=== PATIENT | female | born 1965 | race Caucasian/White ===

== ENCOUNTER 2016-10-10 22:12 | Emergency (ER) | payer MEDICAID ==
[2016-10-10] MEDS ORDERED: Albuterol-Ipratrop 3 mg / 0.5 (3 ml) UD ONE (22:42)
[2016-10-10] MEDS ORDERED: Albuterol-Ipratrop 3 mg / 0.5 (3 ml) UD IH SCH (22:45)
[2016-10-10] MEDS: Albuterol-Ipratrop 3 mg / 0.5 (3 ml) UD IH SCH (22:58)
[2016-10-10 23:32] VITALS: BP 150/93; PULSE 93; RESP 18; TEMP 98; O2SAT 95
--- NOTE | 2016-10-10 23:35 | C.PDOC ---
History Of Present Illness 51 year old female with a history of asthma, presents to the ED with complaints of cough, wheezing, and chest congestion for the past 4 days. Patient states she was using Albuterol at home with mild relief and denies fever, chills, vomiting, diarrhea, chest pain, or any other complaints at this time. Time Seen by Provider: 10/10/16 22:25 Chief Complaint (Nursing): Shortness Of Breath History Per: Patient History/Exam Limitations: no limitations Onset/Duration Of Symptoms: Days Current Symptoms Are (Timing): Still Present Severity: Mild Associated Symptoms: denies: Fever, Chills, Chest Pain, Productive Cough Past Medical History Reviewed: Historical Data, Nursing Documentation, Vital Signs Vital Signs: Last Vital Signs Temp 98 F 10/10/16 23:32 Pulse 93 H 10/10/16 23:32 Resp 18 10/10/16 23:32 BP 150/93 H 10/10/16 23:32 Pulse Ox 95 10/10/16 23:50 - Medical History PMH: Asthma, HTN, Kidney Stones ('92) Surgical History: Cholecystectomy Family History: States: Unknown Family Hx - Social History Hx Alcohol Use: No Hx Substance Use: No - Immunization History Hx Tetanus Toxoid Vaccination: Yes Hx Influenza Vaccination: Yes Hx Pneumococcal Vaccination: Yes Review Of Systems Except As Marked, All Systems Reviewed And Found Negative. Constitutional: Negative for: Fever, Chills Cardiovascular: Negative for: Chest Pain, Palpitations Respiratory: Positive for: Cough, Wheezing, Other (+Chest congestion) Gastrointestinal: Negative for: Nausea, Vomiting, Diarrhea Physical Exam - Physical Exam Appears: Non-toxic, No Acute Distress Skin: Normal Color, Warm, Dry Head: Atraumatic, Normacephalic Eye(s): bilateral: Normal Inspection Oral Mucosa: Moist Chest: Symmetrical, No Deformity Cardiovascular: Rhythm Regular Respiratory: No Accessory Muscle Use, No Rales, No Rhonchi, Wheezing (+Moderate bilateral expiratory wheezing) Gastrointestinal/Abdominal: Soft, No Tenderness, No Distention Extremity: Normal ROM, No Deformity Neurological/Psych: Oriented x3, Normal Speech, Normal Cognition ED Course And Treatment O2 Sat by Pulse Oximetry: 95 (Room air) Pulse Ox Interpretation: Normal - Radiology CXR: Interpreted by Me, Viewed By Me CXR Interpretation: Yes: No Acute Disease Medical Decision Making Medical Decision Making: Plan: -CXR -Ap Mauricio-Medrol -Zithromax -Reassess Progress: On reassessment, patient is resting comfortably with no wheezing, chest pain, or retractions. Oxygen saturation and breath sounds have improved. Rx given and patient was advised to follow up with physician/clinic in 1-2 days and return to ED if symptoms worsen or persist. Disposition - Disposition Referrals: Sukh Chairez [Staff Provider] - Disposition: HOME/ ROUTINE Disposition Time: 23:35 Condition: STABLE Additional Instructions: Follow up with the medical doctor within 1-2 days without fail. Return if worsened. Prescriptions: Nebulizer Accessories [Reusable Nebulizer Kit] 1 each MC Q4 #1 kit Benzonatate [Tessalon Perles] 200 mg PO TID PRN #21 sgl PRN Reason: Cough Albuterol HFA [Ventolin HFA 90 mcg/actuation (8 g)] 1 puff IH Q4 PRN #100 puff PRN Reason: Wheezing Azithromycin [Zithromax] 250 mg PO DAILY #4 tab predniSONE [Prednisone] 20 mg PO BID #10 tab Instructions: Asthma (DC) - Clinical Impression Clinical Impression: Asthmatic bronchitis - PA / PROJECT MANAGEMENT ENGINEER / Resident Statement MD/DO has reviewed & agrees with the documentation as recorded. - Scribe Statement The provider has reviewed the documentation as recorded by the Scribe Alexandr Clay. All medical record entries made by the Scribe were at my direction and personally dictated by me. I have reviewed the chart and agree that the record accurately reflects my personal performance of the history, physical exam, medical decision making, and the department course for this patient. I have also personally directed, reviewed, and agree with the discharge instructions and disposition.
--- NOTE | 2016-10-11 10:27 | RAD ---
HISTORY: SOB, cough, wheezing COMPARISON: Comparison chest dated 09/29/2016. TECHNIQUE: Chest PA and lateral FINDINGS: LUNGS: Suspect minor bibasilar atelectasis. PLEURA: No significant pleural effusion identified. No pneumothorax apparent. CARDIOVASCULAR: Mild cardiomegaly. OSSEOUS STRUCTURES: Mild multilevel degenerative spondylosis of the thoracic spine. Chronic anterior wedge deformities of a few mid thoracic segments. VISUALIZED UPPER ABDOMEN: Normal. OTHER FINDINGS: None. IMPRESSION: Minor bibasilar atelectasis. Mild cardiomegaly.
== END 2016-10-10 23:43 | disposition home or self-care (01) ==
LOC: C.ER 22:12
DX: J45.909 Unspecified asthma, uncomplicated (principal)

== ENCOUNTER 2017-01-27 11:06 | Emergency (ER) | payer MEDICAID ==
[2017-01-27 11:17] VITALS: BP 159/82; PULSE 76; RESP 20; TEMP 98; O2SAT 98
--- NOTE | 2017-01-27 13:21 | RAD ---
PROCEDURE: Right middle finger radiographs. HISTORY: injury COMPARISON: None. TECHNIQUE: AP radiograph of the right hand, as well as spot oblique and lateral images of right middle finger were obtained. FINDINGS: RIGHT MIDDLE FINGER: Right middle finger normal, without fracture of focal lesion. Remainder of the right hand (as seen on the AP view) grossly unremarkable. JOINTS: Normal. SOFT TISSUES: Normal. OTHER FINDINGS: None. IMPRESSION: Normal right middle finger radiographs.
--- NOTE | 2017-01-27 13:30 | CT ---
PROCEDURE: CT HEAD WITHOUT CONTRAST. HISTORY: dizzy, right scalp lump COMPARISON: None available. TECHNIQUE: Axial computed tomography images were obtained through the head/brain without intravenous contrast. Radiation dose: Total exam DLP = 908.69 mGy-cm. This CT exam was performed using one or more of the following dose reduction techniques: Automated exposure control, adjustment of the mA and/or kV according to patient size, and/or use of iterative reconstruction technique. FINDINGS: HEMORRHAGE: No intracranial hemorrhage. BRAIN: No mass effect or edema. The warner-white matter differentiation appears intact. Please note that MRI with diffusion imaging is more sensitive in the detection of acute ischemic event. VENTRICLES: No hydrocephalus. CALVARIUM: Unremarkable. PARANASAL SINUSES: Unremarkable as visualized. No significant inflammatory changes. MASTOID AIR CELLS: Unremarkable as visualized. No inflammatory changes. OTHER FINDINGS: Focal prominence involving the right scalp ; question presence of 2.0 x 0.4 cm lipoma. IMPRESSION: No acute intracranial pathology identified. Focal prominence involving the right scalp ; question presence of 2.0 x 0.4 cm lipoma.
--- NOTE | 2017-01-27 14:09 | C.PDOC ---
History Of Present Illness Patient is a 51 y/o female that is sent to the ED by Dr. Kay for evaluation of intermittent headache, and dizziness for the last 2 months. Patient states that her symptoms have been more frequent for the last few days. Patient states that she fell, and hit the right side of her head, and noticed some swelling to the area. Pt reports being seen by her PMD at that time who suggested to aspirate with needle, but pt had declined. Pt states that she felt dizzy again this morning, and fell, hitting the right 3rd digit. Otherwise, denies any fever, chills, extremity weakness, numbness, nausea, vomiting, visual changes, or any other associated symptoms at this time. Pt reports seeing PMD today for routine appointment, who suggested to report to hospital. Time Seen by Provider: 01/27/17 11:32 Chief Complaint (Nursing): Dizziness/Lightheaded History Per: Patient History/Exam Limitations: no limitations Onset/Duration Of Symptoms: Days Current Symptoms Are (Timing): Still Present Recent travel outside of the [place]: No Additional History Per: Patient Past Medical History Reviewed: Historical Data, Nursing Documentation, Vital Signs Vital Signs: Last Vital Signs Temp 98 F 01/27/17 11:14 Pulse 76 01/27/17 11:14 Resp 20 01/27/17 11:14 BP 159/82 H 01/27/17 11:14 Pulse Ox 98 01/27/17 14:56 - Medical History PMH: Asthma, HTN, Kidney Stones ('92) Surgical History: Cholecystectomy Family History: States: Unknown Family Hx - Social History Hx Alcohol Use: No Hx Substance Use: No - Immunization History Hx Tetanus Toxoid Vaccination: Yes Hx Influenza Vaccination: Yes Hx Pneumococcal Vaccination: Yes Review Of Systems Except As Marked, All Systems Reviewed And Found Negative. Constitutional: Negative for: Fever, Chills Cardiovascular: Negative for: Chest Pain, Palpitations Respiratory: Negative for: Shortness of Breath Gastrointestinal: Negative for: Nausea, Vomiting Musculoskeletal: Positive for: Hand Pain (right 3rd digit) Neurological: Positive for: Headache, Dizziness. Negative for: Weakness, Numbness Physical Exam - Physical Exam Appears: Non-toxic, No Acute Distress Skin: Warm, Dry, Other (erythema to right 3rd digit) Head: Atraumatic, Normacephalic, Swelling (right parietal scalp soft tissue mass 2 x 0.5 cm, soft, movable, probably lipoma. no erythema, no fluctuance, no drainage, no open wound) Eye(s): bilateral: Normal Inspection, EOMI Neck: Normal ROM, Supple Chest: Symmetrical, No Tenderness Cardiovascular: Rhythm Regular, No Murmur Respiratory: Normal Breath Sounds, No Rales, No Rhonchi, No Wheezing Gastrointestinal/Abdominal: Soft, No Tenderness Extremity: Normal ROM, Tenderness (mild right 3rd digit), Capillary Refill (< 2 sec.), No Deformity, No Swelling Pulses: Left Radial: Normal, Right Radial: Normal Neurological/Psych: Oriented x3, Normal Speech, Normal Cognition, Normal Motor, Normal Sensation ED Course And Treatment ECG: Interpreted By Me, Viewed By Me ECG Rhythm: Sinus Rhythm ECG Interpretation: Normal Interpretation Of ECG: sinus rhythm with sinus arrhythmia with occasional PVC. Rate From EC (bpm) O2 Sat by Pulse Oximetry: 98 (on RA) Pulse Ox Interpretation: Normal - Other Rad Right 3rd digit x-ray X-Ray: Viewed By Me, Read By Radiologist Interpretation: FINDINGS: RIGHT MIDDLE FINGER: Right middle finger normal, without fracture of focal lesion. Remainder of the right hand (as seen on the AP view) grossly unremarkable. JOINTS: Normal. SOFT TISSUES: Normal. OTHER FINDINGS: None. IMPRESSION: Normal right middle finger radiographs. - CT Scan/US Head CT Other Rad Studies (CT/US): Read By Radiologist, Radiology Report Reviewed CT/US Interpretation: FINDINGS: HEMORRHAGE: No intracranial hemorrhage. BRAIN : No mass effect or edema. The warner-white matter differentiation appears intact. Please note that MRI with diffusion imaging is more sensitive in the detection of acute ischemic event. VENTRICLES: No hydrocephalus. CALVARIUM: Unremarkable. PARANASAL SINUSES: Unremarkable as visualized. No significant inflammatory changes. MASTOID AIR CELLS: Unremarkable as visualized. No inflammatory changes. OTHER FINDINGS: Focal prominence involving the right scalp ; question presence of 2.0 x 0.4 cm lipoma. IMPRESSION: No acute intracranial pathology identified. Focal prominence involving the right scalp ; question presence of 2.0 x 0.4 cm lipoma. Progress Note: On arrival to ED, pt refuses any type of blood work, and requests only to have CT, and finger x-ray done. Head CT, and right 3rd digit x- ray ordered and reviewed. Spoke with Dr. Voudouris on phone who agrees with plan , and discharge. Disposition - Disposition Disposition: HOME/ ROUTINE Disposition Time: 14:08 Condition: STABLE Additional Instructions: Follow up with your PMD and pest control worker within 1-2 days. Return to Ed if feel worse. Instructions: Dizziness (ED) - Clinical Impression Clinical Impression: Dizziness, Finger contusion, Lipoma of scalp - PA / SELF PAY SPECIALIST / Resident Statement MD/DO has reviewed & agrees with the documentation as recorded. - Scribe Statement The provider has reviewed the documentation as recorded by the Scribfifi Cooper All medical record entries made by the Shayna were at my direction and personally dictated by me. I have reviewed the chart and agree that the record accurately reflects my personal performance of the history, physical exam, medical decision making, and the department course for this patient. I have also personally directed, reviewed, and agree with the discharge instructions and disposition.
--- NOTE | 2017-01-28 17:14 | CARD ---
APPROVED REPORT EKG Measurement Heart [id number] [id number] <Conclusion> Sinus rhythm with sinus arrhythmia with occasional premature ventricular complexes Otherwise normal ECG
== END 2017-01-27 14:30 | disposition home or self-care (01) ==
LOC: C.ER 11:06
DX: R42 Dizziness and giddiness (principal); D17.0 Benign lipomatous neoplasm of skin and subcutaneous tissue of head, face and neck; S60.031A Contusion of right middle finger without damage to nail, initial encounter; W18.30XA Fall on same level, unspecified, initial encounter

== ENCOUNTER 2017-03-12 10:52 | Emergency (ER) | payer MEDICAID ==
[2017-03-12 11:08] VITALS: BP 134/87; PULSE 87; TEMP 97.6
--- NOTE | 2017-03-12 12:00 | C.PDOC ---
History Of Present Illness 51 year old female with a history of arthritis presents to the ED with complaints of right knee pain for four days. Patient was evaluated by her PMD, had XR, was diagnosed with arthritis. PMD instructed her follow up with orthopedist but has not been able to. 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 Has been taking Motrin with no relief. Patient denies trauma, calf tenderness, SOB, fever, or change in sensation. Time Seen by Provider: 03/12/17 11:55 Chief Complaint (Nursing): Lower Extremity Problem/Injury History Per: Patient History/Exam Limitations: no limitations Onset/Duration Of Symptoms: Days (4 days) Current Symptoms Are (Timing): Still Present Recent travel outside of the [place]: No Additional History Per: Prior Records Past Medical History Reviewed: Historical Data, Nursing Documentation, Vital Signs Vital Signs: Last Vital Signs Temp 97.6 F 03/12/17 12:07 Pulse 87 03/12/17 12:07 Resp 18 03/12/17 12:07 BP 134/87 03/12/17 12:07 Pulse Ox 97 03/12/17 12:23 - Medical History PMH: Asthma, HTN, Kidney Stones ('92) Surgical History: Cholecystectomy Family History: States: Unknown Family Hx - Social History Hx Alcohol Use: No Hx Substance Use: No - Immunization History Hx Tetanus Toxoid Vaccination: Yes Hx Influenza Vaccination: Yes Hx Pneumococcal Vaccination: Yes Review Of Systems Constitutional: Negative for: Fever Cardiovascular: Negative for: Chest Pain Respiratory: Negative for: Shortness of Breath Gastrointestinal: Negative for: Nausea, Vomiting Musculoskeletal: Positive for: Leg Pain (right knee pain ). Negative for: Back Pain, Foot Pain Neurological: Negative for: Weakness, Numbness Physical Exam - Physical Exam Appears: Non-toxic, No Acute Distress Skin: Warm, Dry Head: Atraumatic, Normacephalic Eye(s): bilateral: Normal Inspection, EOMI Nose: Normal Oral Mucosa: Moist Neck: Supple Chest: Symmetrical Cardiovascular: Rhythm Regular Respiratory: Normal Breath Sounds, No Rhonchi, No Wheezing Extremity: Normal ROM (Full ROM of right knee), No Tenderness, No Pedal Edema, No Calf Tenderness, Capillary Refill, No Deformity, Swelling (diffuse mild swelling of the right knee ) Extremity: Bilateral: Atraumatic Pulses: Left Dorsalis Pedis: Normal, Right Dorsalis Pedis: Normal Neurological/Psych: Oriented x3, Normal Speech, Normal Cognition, Normal Motor, Normal Sensation ED Course And Treatment O2 Sat by Pulse Oximetry: 97 (room air ) Progress Note: Patient was given ultram. Knee brace was applied by phlebotomy technologist and patient given crutches. Instructed to follow up with orthopedist in 1-2 days. Disposition - Disposition Referrals: Heather Rider MD [Staff Provider] - Disposition: HOME/ ROUTINE Disposition Time: 11:58 Condition: STABLE Additional Instructions: Rest, ice and elevated. Follow up with bone doctor in 1-2 days. Prescriptions: traMADol [Ultram] 50 mg PO Q8 #20 tab Instructions: Knee Pain (ED) Forms: [employer] ([place]) - Clinical Impression Clinical Impression: Knee pain - Scribe Statement The provider has reviewed the documentation as recorded by the Scribe Belkys Ingram All medical record entries made by the Scribe were at my direction and personally dictated by me. I have reviewed the chart and agree that the record accurately reflects my personal performance of the history, physical exam, medical decision making, and the department course for this patient. I have also personally directed, reviewed, and agree with the discharge instructions and disposition.
[2017-03-12 12:08] VITALS: RESP 18
[2017-03-12 12:20] VITALS: O2SAT 97
== END 2017-03-12 12:06 | disposition home or self-care (01) ==
LOC: C.ER 10:52
DX: M25.561 Pain in right knee (principal)

== ENCOUNTER 2017-05-03 10:11 | Inpatient (IN) | payer MEDICAID ==
--- NOTE | 2017-05-03 11:36 | C.PDOC ---
History Of Present Illness 51 year old female, with past medical history of asthma, HTN, presents to Emergency Department for evaluation of shortness of breath associated with cough , wheezing, and chest tightness for the last 2 days. Patient states that pain is worse with deep breathing. Patient reports using inhaler at home without improvement. Denies sputum, fever, chills, n/v/d, abdominal pain, or lower extremity pain/swelling. Pt reports being admitted for asthma exacerbation in the past. Denies being placed on ventilator in the past. Chief Complaint (Nursing): Shortness Of Breath History Per: Patient History/Exam Limitations: no limitations Onset/Duration Of Symptoms: Days (2) Current Symptoms Are (Timing): Still Present Current Respiratory Medications: See Home Med List Associated Symptoms: denies: Fever, Chills, Sweating, Bloody Cough, Heart Racing , Leg/Calf Pain, Ankle/Leg Swelling, Dizziness, Light-headedness, Anxiety, Tingling In Hands Or Face, Musle Spasms In Hands Or Feet Recent travel outside of the [place]: No Additional History Per: Patient Past Medical History Reviewed: Historical Data, Nursing Documentation, Vital Signs Vital Signs: Last Vital Signs Temp 97.3 F L 05/03/17 10:27 Pulse 125 H 05/03/17 15:04 Resp 18 05/03/17 15:04 BP 108/61 05/03/17 15:04 Pulse Ox 98 05/03/17 15:05 - Medical History PMH: Asthma, HTN, Kidney Stones ('92) Surgical History: Cholecystectomy Family History: States: Unknown Family Hx - Social History Hx Alcohol Use: No Hx Substance Use: No - Immunization History Hx Tetanus Toxoid Vaccination: Yes Hx Influenza Vaccination: Yes Hx Pneumococcal Vaccination: Yes Review Of Systems Except As Marked, All Systems Reviewed And Found Negative. Constitutional: Negative for: Fever, Chills Cardiovascular: Positive for: Chest Pain (tightness). Negative for: Palpitations, Edema, Light Headedness Respiratory: Positive for: Cough, Shortness of Breath, Pleuritic Pain, Wheezing. Negative for: Hemoptysis, Sputum Gastrointestinal: Negative for: Nausea, Vomiting, Abdominal Pain, Diarrhea Neurological: Negative for: Headache, Dizziness Physical Exam - Physical Exam Appears: Non-toxic, No Acute Distress Skin: Normal Color, Warm, Dry Head: Atraumatic, Normacephalic Eye(s): bilateral: Normal Inspection, PERRL, EOMI Ear(s): Bilateral: Normal Nose: Normal Oral Mucosa: Moist Throat: Normal Neck: Normal ROM, Supple Chest: Symmetrical, No Tenderness Cardiovascular: No Murmur, Other (tachycardic) Respiratory: No Accessory Muscle Use, No Rales, No Rhonchi, No Wheezing, Other ( diminished breath sounds in b/l bases, tachypneic) Gastrointestinal/Abdominal: Soft, No Tenderness Back: Normal Inspection, No CVA Tenderness Extremity: Normal ROM, No Pedal Edema, No Calf Tenderness, Capillary Refill (<2 sec.), No Deformity, No Swelling Extremity: Bilateral: Atraumatic, Normal Color And Temperature Pulses: Left Radial: Normal, Right Radial: Normal Neurological/Psych: Oriented x3, Normal Speech, Normal Cognition ED Course And Treatment - Laboratory Results Result Diagrams: 05/03/17 11:49 05/03/17 11:49 Lab Interpretation: Abnormal Interpretation Of Abnormal: C/w CHF ECG: Interpreted By Me ECG Rhythm: Atrial Fibrillation ECG Interpretation: Abnormal Interpretation Of ECG: new onset atrial fib with RVR to 166 Rate From EC O2 Sat by Pulse Oximetry: 98 (on RA) Pulse Ox Interpretation: Normal - Radiology CXR: Interpreted by Co CXR Interpretation: Yes: No Acute Disease Progress Note: Pt given cardizem bolus and drip.Vent response now at mid 90's - Physician Consult Information Time Consulting Physician Contacted: 12:30 (no initial respone,spoke with resident who says Dr Fernández will call back) Physician Contacted: Denny Fernández Medical Decision Making Medical Decision Making: Blood work, UA, CXR, EKG ordered and reviewed. Patient was given Cardizem, Lasix, and Solu-Medrol. Pts SOB would appear to be due to acute onset atrial fib with mild CHF Disposition - Disposition Disposition: HOSPITALIZED Disposition Time: 12:33 Condition: GUARDED Forms: [facility] (Wolof) - Clinical Impression Clinical Impression: Atrial fibrillation with RVR, Congestive heart failure - Scribe Statement The provider has reviewed the documentation as recorded by the Scribe Omar Cooper All medical record entries made by the Scribe were at my direction and personally dictated by me. I have reviewed the chart and agree that the record accurately reflects my personal performance of the history, physical exam, medical decision making, and the department course for this patient. I have also personally directed, reviewed, and agree with the discharge instructions and disposition. Decision To Admit - Pt Status Changed To: Hospital Disposition Of: Inpatient - Admit Certification Admit to Inpatient:: After my assessment, the patient will require hospitalization for at least two midnights. This is because of the severity of symptoms shown, intensity of services needed, and/or the medical risk in this patient being treated as an outpatient. - InPatient: Physician Admission Certification: I certify that this patient requires 2 or more midnights of care for the following reason:: new onset atrial fib with CHF - . Bed Request Type: Telemetry Admitting Physician: Randi Arriaza Patient Diagnosis: Atrial fibrillation with RVR, Congestive heart failure
[2017-05-03 11:58] LABS: BASO # 0.1 K/uL (0.0-0.2); BASO % 0.4 % (0.0-2.0); EOS % 0.1 % (0.0-4.0); HEMATOCRIT 46.3 % (34.0-47.0); LYMPH # 1.9 K/uL (1.0-4.3); LYMPH % 14.4 % (20.0-40.0); MEAN CORPUSCULAR HEMOGLOBIN 28.8 pg (27.0-31.0); MEAN CORPUSCULAR HGB CONC 33.9 g/dL (33.0-37.0); MONO # 0.8 K/uL (0.0-0.8); RED CELL DISTRIBUTION WIDTH 13.8 % (11.5-14.5); WHITE BLOOD COUNT 13.1 K/uL (4.8-10.8)
[2017-05-03 12:10] LABS: CHLORIDE 100 mmol/L (98-107); SODIUM 136 mmol/L (132-148)
[2017-05-03 12:11] LABS: POTASSIUM 4.2 mmol/L (3.6-5.2)
[2017-05-03 12:12] LABS: GFR AFRICAN-AMERICAN > 60
[2017-05-03 12:13] LABS: ALB/GLOB RATIO 1.3 (1.0-2.1); ALKALINE PHOSPHATASE 70 U/L (38-126); ALT/SGPT 30 U/L (9-52); AST/SGOT 24 U/L (14-36); BILIRUBIN,TOTAL 0.8 mg/dL (0.2-1.3); BLOOD UREA NITROGEN 20 mg/dL (7-17); CARBON DIOXIDE 23 mmol/L (22-30); GLUCOSE,RANDOM 125 mg/dL (65-105); TOTAL PROTEIN 7.9 g/dL (6.3-8.3)
[2017-05-03 12:14] LABS: CALCIUM 9.6 mg/dl (8.6-10.4)
--- NOTE | 2017-05-03 12:45 | RAD ---
PROCEDURE: CHEST RADIOGRAPH, 1 VIEW HISTORY: SOB COMPARISON: Chest radiographs 10/10/2016. FINDINGS: LUNGS: No acute infiltrate bilaterally, however, history volume appears somewhat diminished in the interval. PLEURA: No pneumothorax or pleural fluid seen. CARDIOVASCULAR: Stable cardiomegaly. No pulmonary vascular derangement identified. OSSEOUS STRUCTURES: No significant abnormalities. VISUALIZED UPPER ABDOMEN: Normal. OTHER FINDINGS: None. IMPRESSION: Stable cardiomegaly. No acute infiltrate or pleural effusion. No pulmonary vascular derangement. Diminished inspiratory volume noted in the interval.
[2017-05-03] MEDS ORDERED: Iodixanol 320 MG/ML 100 ML BOTTLE IV ONE (13:59)
--- NOTE | 2017-05-03 15:28 | CT ---
PROCEDURE: CT Chest with contrast (Pulmonary Angiogram) HISTORY: new onset atrial fib COMPARISON: None available. TECHNIQUE: Axial computed tomography images were obtained of the chest in the pulmonary arterial phase of enhancement. Coronal and sagittal reformatted images were created and reviewed. Intravenous contrast dose: Visipaque 320, 100 cc Radiation dose: Total exam DLP = 532.48 mGy-cm. This CT exam was performed using one or more of the following dose reduction techniques: Automated exposure control, adjustment of the mA and/or kV according to patient size, and/or use of iterative reconstruction technique. FINDINGS: PULMONARY ARTERIES: The main pulmonary artery as well as the primary right and left pulmonary arteries are widely patent without filling defect to suggest a central pulmonary embolus. There is a small area of diminished density add a tertiary branch (image 105 series 2) of the right upper lobe of pulmonary artery which on correlation with coronal reformatted imaging may represent streak artifact rather than intrinsic pulmonary embolus. Evaluation of smaller branches of the pulmonary arteries is somewhat limited in this case with adequate but the somewhat limited pulmonary artery opacification. No additional findings to suggest additional potential pulmonary emboli bilaterally. AORTA: No acute findings. No thoracic aortic aneurysm. LUNGS: Limited bilateral dependent atelectasis is appreciated with no definitive alveolitis. Thickening of the inferior left major fissure is questioned versus local atelectasis adjacent to it. Central airways are clear. PLEURAL SPACES: Unremarkable. No effusion or pneuomothorax. HEART: Cardiomegaly. Trace inferior pericardial effusion or pericardial thickening. LYMPH NODES: No lymphadenopathy. BONES, CHEST WALL: Unremarkable. No fracture or destructive lesion OTHER FINDINGS: Prior cholecystectomy suggested in the upper abdomen with central splenic vascular or parenchymal calcifications noted minimally. IMPRESSION: 1. A solitary tertiary branch of the right upper lobe is felt to be affected by streak artifact, favored over intrinsic small pulmonary embolus. Further clinical correlation is advised the remaining pulmonary arteries system appears patent and unremarkable. 2. Trace bilateral basilar dependent atelectasis. No alveolitis or discrete pulmonary mass. No significant lymphadenopathy. 3. Cardiomegaly. 4. Incidental prior cholecystectomy identified. Clinically correlate. Findings discussed with Dr. Raya 05/03/2017, 3:15 p.m. with written down and read back verification.
[2017-05-03] MEDS ORDERED: Albuterol 0.083% Inhal Sol (2.5 mg/3 mL) UD IH PRN (15:42)
[2017-05-03] MEDS ORDERED: Enoxaparin 80 mg Syringe ONE (15:50)
[2017-05-03] MEDS: Enoxaparin 80 mg Syringe SC SCH (16:01)
[2017-05-03] MEDS ORDERED: Digoxin 500 mcg/2ml (0.5 mg/2ml) Inj IVP ONE (18:33)
--- NOTE | 2017-05-03 19:16 | CP.PCM.HP ---
Addendum entered and electronically signed by Carlie House DO 05/03/17 20:46: minimal leg edema noted bilaterally. patient does not have pitting edema Original Note: <Carlie House - Last Filed: 05/03/17 19:44> History of Present Illness - History of Present Illness History of Present Illness: History and Physical for Dr. Arriaza 51F with PMH of asthma and HTN, presents to the ED with SOB that started yesterday that became worse today. Patient went to see PMD yesterday and was told it was an asthma exacerbation, medications were changed and was sent for CXR today. CXR was done and Patient called PMD and stated that SOB was worse today and was told by PMD to come to the ED. Patient admits to midsternal chest pain that comes and goes for the past two days. Patient states this is the first time. Pt states that she has been having trouble walking a short distance for over a year and sleeps with four pillows and "three mini pillows" at night. Patient also complains of headache, nausea, cough, vomiting, and subjective fever. Patient admits to leg swelling that has been getting worse over the past week. Patient denies palpitations, diaphoresis, headache, dysuria , hematuria, abdominal pain, diarrhea, weight changes, or changes in vision. 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 [employer], patient has pets at home, no alcohol, smoking, or drugs Allergies: latex, natural rubber, morphine Present on Admission - Present on Admission Any Indicators Present on Admission: No History of DVT/PE: No History of Uncontrolled Diabetes: No Urinary Catheter: No Decubitus Ulcer Present: No Past Patient History - Past Medical History & Family History Past Medical History?: Yes - Past Social History Smoking Status: Never Smoked - CARDIAC Hx Hypertension: Yes - PULMONARY Hx Asthma: Yes - NEUROLOGICAL Hx Neurological Disorder: No - HEENT Hx HEENT Problems: No - RENAL Hx Kidney Stones: Yes () - ENDOCRINE/METABOLIC Hx Endocrine Disorders: No - HEMATOLOGICAL/ONCOLOGICAL Hx Blood Disorders: No - INTEGUMENTARY Hx Dermatological Problems: No - MUSCULOSKELETAL/RHEUMATOLOGICAL Hx Musculoskeletal Disorders: No Hx Falls: No - GASTROINTESTINAL Hx Gastrointestinal Disorders: No - GENITOURINARY/GYNECOLOGICAL Hx Genitourinary Disorders: No - PSYCHIATRIC Hx Substance Use: No - SURGICAL HISTORY Hx Cholecystectomy: Yes - ANESTHESIA Hx Anesthesia: Yes Hx Anesthesia Reactions: No Hx Malignant Hyperthermia: No Meds Allergies/Adverse Reactions: Allergies Allergy/AdvReac Type Severity Reaction Status Date / Time Latex, Natural Rubber Allergy Intermediate RASH Verified 05/03/17 10:30 morphine Allergy Intermediate VOMITING Verified 05/03/17 10:30 Physical Exam - Constitutional Appears: Non-toxic - Head Exam Head Exam: NORMAL INSPECTION - Eye Exam Eye Exam: EOMI, Normal appearance - ENT Exam ENT Exam: Mucous Membranes Moist - Neck Exam Neck exam: Positive for: Full Rom - Respiratory Exam Respiratory Exam: NORMAL BREATHING PATTERN. absent: Accessory Muscle Use, Respiratory Distress - Cardiovascular Exam Cardiovascular Exam: Tachycardia, Irregular Rhythm, +S1, +S2. absent: Bradycardia - GI/Abdominal Exam GI & Abdominal Exam: Soft. absent: Tenderness Additional comments: rash (red raised papules) on right upper quadrant and right lower breast tissue patient states it's due to her underwire bra irritation per PMD Results - Vital Signs Recent Vital Signs: Last Vital Signs Temp 98.3 F 05/03/17 18:38 Pulse 82 05/03/17 18:38 Resp 20 05/03/17 18:38 BP 131/77 05/03/17 18:38 Pulse Ox 95 05/03/17 18:38 - Labs Result Diagrams: 05/03/17 11:49 05/03/17 11:49 Labs: Laboratory Results - last 24 hr 05/03/17 05/03/17 05/03/17 11:49 11:49 12:18 WBC 13.1 H D RBC 5.45 H Hgb 15.7 Hct 46.3 MCV 85.0 D MCH 28.8 MCHC 33.9 RDW 13.8 Plt Count 296 MPV 9.0 Neut % (Auto) 79.1 H Lymph % (Auto) 14.4 L [place] % (Auto) 6.0 Eos % (Auto) 0.1 Baso % (Auto) 0.4 Neut # 10.4 H Lymph # 1.9 [place] # 0.8 Eos # 0.0 Baso # 0.1 D-Dimer, Quantitative 286 H Sodium 136 Potassium 4.2 Chloride 100 Carbon Dioxide 23 Anion Gap 16 BUN 20 H Creatinine 0.5 L Est GFR ( Amer) > 60 Est GFR (Non-Af Amer) > 60 Random Glucose 125 H Calcium 9.6 Total Bilirubin 0.8 AST 24 ALT 30 Alkaline Phosphatase 70 Troponin I < 0.0120 NT-Pro-B Natriuret Pep 2160 H Total Protein 7.9 Albumin 4.5 Globulin 3.4 Albumin/Globulin Ratio 1.3 Urine HCG, Qual Urine Opiates Screen Urine Methadone Screen Ur Barbiturates Screen Ur Phencyclidine Scrn Ur Amphetamines Screen U Benzodiazepines Scrn U Oth Cocaine Metabols U Cannabinoids Screen 05/03/17 05/03/17 13:33 13:44 WBC RBC Hgb Hct MCV MCH MCHC RDW Plt Count MPV Neut % (Auto) Lymph % (Auto) [place] % (Auto) Eos % (Auto) Baso % (Auto) Neut # Lymph # [place] # Eos # Baso # D-Dimer, Quantitative Sodium Potassium Chloride Carbon Dioxide Anion Gap BUN Creatinine Est GFR ( Amer) Est GFR (Non-Af Amer) Random Glucose Calcium Total Bilirubin AST ALT Alkaline Phosphatase Troponin I NT-Pro-B Natriuret Pep Total Protein Albumin Globulin Albumin/Globulin Ratio Urine HCG, Qual Negative Urine Opiates Screen Negative Urine Methadone Screen Negative Ur Barbiturates Screen Negative Ur Phencyclidine Scrn Negative Ur Amphetamines Screen Negative U Benzodiazepines Scrn Negative U Oth Cocaine Metabols Negative U Cannabinoids Screen Negative Assessment & Plan - Assessment and Plan (Free Text) Assessment: Dr. Marcelino PMD [facility] Launch Leader: Dr. Berumen Atrial Fibrillation RVR Cardiology Consult: Dr. Sheldon LAURENT neg x 1 follow up 17:50 MEHRAN and 23:50 MEHRAN f/u TSH CHADSVasc: 1, pending final read of echo and hemoglobin a1c HAS-BLED score: 0 points, low risk for major bleeding Cardizem 60mg POQID Cozaar 100mg POQD Hx Asthma, SOB r/o Pneumonia Pulmonology Consult: Dr. Sosa M. pneumoniae ab IgG S. pneumoniae ag Albuterol 2.5mg IH RQ6H PRN SOB Fluticasone/Salmeterol 50 Montelukast 10mg POQD Hx HTN Hydrochlorothiazide 25mg POQD ?Hx Pre-Diabetes f/u Hgb A1c Prophylaxis Pepcid 20mg POBID Lovenox 80mg SCQ12H Carlie Eng, DO PGY1 - Date & Time Date: 05/03/17 Time: 19:45 <Randi Arriaza V - Last Filed: 05/03/17 21:51> Results - Vital Signs Recent Vital Signs: Last Vital Signs Temp 98.3 F 05/03/17 18:38 Pulse 82 05/03/17 18:38 Resp 20 05/03/17 18:38 BP 131/77 05/03/17 18:38 Pulse Ox 95 05/03/17 18:38 - Labs Result Diagrams: 05/03/17 11:49 05/03/17 11:49 Labs: Laboratory Results - last 24 hr 05/03/17 05/03/17 05/03/17 11:49 11:49 12:18 WBC 13.1 H D RBC 5.45 H Hgb 15.7 Hct 46.3 MCV 85.0 D MCH 28.8 MCHC 33.9 RDW 13.8 Plt Count 296 MPV 9.0 Neut % (Auto) 79.1 H Lymph % (Auto) 14.4 L [place] % (Auto) 6.0 Eos % (Auto) 0.1 Baso % (Auto) 0.4 Neut # 10.4 H Lymph # 1.9 [place] # 0.8 Eos # 0.0 Baso # 0.1 D-Dimer, Quantitative 286 H Sodium 136 Potassium 4.2 Chloride 100 Carbon Dioxide 23 Anion Gap 16 BUN 20 H Creatinine 0.5 L Est GFR ( Amer) > 60 Est GFR (Non-Af Amer) > 60 Random Glucose 125 H Calcium 9.6 Total Bilirubin 0.8 AST 24 ALT 30 Alkaline Phosphatase 70 Total Creatine Kinase CK-MB (Mass) Troponin I < 0.0120 Troponin I, Quant NT-Pro-B Natriuret Pep 2160 H Total Protein 7.9 Albumin 4.5 Globulin 3.4 Albumin/Globulin Ratio 1.3 TSH 3rd Generation Urine HCG, Qual Urine Opiates Screen Urine Methadone Screen Ur Barbiturates Screen Ur Phencyclidine Scrn Ur Amphetamines Screen U Benzodiazepines Scrn U Oth Cocaine Metabols U Cannabinoids Screen 05/03/17 05/03/17 05/03/17 13:33 13:44 19:31 WBC RBC Hgb Hct MCV MCH MCHC RDW Plt Count MPV Neut % (Auto) Lymph % (Auto) [place] % (Auto) Eos % (Auto) Baso % (Auto) Neut # Lymph # [place] # Eos # Baso # D-Dimer, Quantitative Sodium Potassium Chloride Carbon Dioxide Anion Gap BUN Creatinine Est GFR ( Amer) Est GFR (Non-Af Amer) Random Glucose Calcium Total Bilirubin AST ALT Alkaline Phosphatase Total Creatine Kinase CK-MB (Mass) Troponin I Troponin I, Quant NT-Pro-B Natriuret Pep Total Protein Albumin Globulin Albumin/Globulin Ratio TSH 3rd Generation 0.57 Urine HCG, Qual Negative Urine Opiates Screen Negative Urine Methadone Screen Negative Ur Barbiturates Screen Negative Ur Phencyclidine Scrn Negative Ur Amphetamines Screen Negative U Benzodiazepines Scrn Negative U Oth Cocaine Metabols Negative U Cannabinoids Screen Negative 05/03/17 19:31 WBC RBC Hgb Hct MCV MCH MCHC RDW Plt Count MPV Neut % (Auto) Lymph % (Auto) [place] % (Auto) Eos % (Auto) Baso % (Auto) Neut # Lymph # [place] # Eos # Baso # D-Dimer, Quantitative Sodium Potassium Chloride Carbon Dioxide Anion Gap BUN Creatinine Est GFR ( Amer) Est GFR (Non-Af Amer) Random Glucose Calcium Total Bilirubin AST ALT Alkaline Phosphatase Total Creatine Kinase 40 CK-MB (Mass) 1.29 Troponin I Troponin I, Quant < 0.0120 NT-Pro-B Natriuret Pep Total Protein Albumin Globulin Albumin/Globulin Ratio TSH 3rd Generation Urine HCG, Qual Urine Opiates Screen Urine Methadone Screen Ur Barbiturates Screen Ur Phencyclidine Scrn Ur Amphetamines Screen U Benzodiazepines Scrn U Oth Cocaine Metabols U Cannabinoids Screen Attending/Attestation - Attestation I have personally seen and examined this patient.: Yes I have fully participated in the care of the patient.: Yes I have reviewed all pertinent clinical information: Yes Notes (Text): Patient seen, examined, and case discussed with day-time resident. Patient seen in [facility] [place] Bed 13 in Emergency Room on 05/03/17 at approximately 1PM today. Case discussed with ICU, Dr Fernández, patient weaned off Cardizem drip, and started on PO Cardizem. Patient's Heart Rate in 120s. Patient determined to be stable for telemetry once weaned off Cardizem drip. Patient comes in following chest pain and associated shortness of breathe and in acute distress while trying to attempt chest xray recommended by her PMD: Dr. Chairez. Patient advised by her PMD to go directly to the ED for evaluation today. Patient found to be in new onset, atrial fibrillation. Patient denies history thyroid disease, denies alcohol history (has family hx: mother), and has low risk for PE. Patient ordered and completed for echocardiogram. Patient is not . Patient had elevated d-dimer. Patient ordered for CT Chest PE protocol-->patient does not appear to have PE, per report patient has artifact. Patient given in the ED: Cardizem 20mg IV X1 at 12:48PM, and on low Cardizem drip at rate of 5 and weaned off drip. Patient given first dose of Cardizem 60mg PO this afternoon around 1PM and second dose Cardizem 60mg PO X1 at 16;48 and dose of Cardizem 10mg IVP X1 prior to transfer to the 6th floor. Patient's heart rate in 120s on 6th floor, and given one dose of Digoxin 0.25mg IVX1. Per request of the patient, spoke with patient's son Jose to update regarding details of the day in relation to his mother's workup for new onset atrial fibrillation. Assessment/Plan 1) New Diagnosed Atrial Fibrillation Atrial Fibrillation RVR * Cardiology Consult: Dr. 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 Discussed with cardiology, possible switch to Eliquis to cover. * Cardizem 60mg PO QID * UDS: negative * CT Chest r/o PE: PE ruled out 2) Possible Congestive Heart Failure * Pending echocardiogram * Heart appears enlarged on chest xray * elevated probnp * hold beta-dayana secondary to se: bronchospasm; patient takes aspirin outpatient, on Arb, on calcium channel dayana, and not currently on statin until lipid panel result 3) Hx of Asthma, Uncontrolled * Pulmonology Consult: Dr. Sosa; patient does not have a private veterinary surgeon * Ordered for M. pneumoniae ab IgG, S. pneumoniae ag Home medications: * Albuterol 2.5mg IH RQ6H PRN SOB * Advair 250/50 1 puff inhaled Q 12h * Montelukast 10mg POQDaily 4) Hx of HTN * Hydrochlorothiazide 25mg POQDaily and Valsartan-->switched to Cozaar 100mg PO daily during hospitalization 5) Hx of Impaired glucose tolerance * f/u Hgb A1c * Accuchecks QAC and HS 6) Elevated d-dimer * Ct Chest PE protocol-->negative for PE * Will order venous doppler low suspicion for DVT. * Well's Criteria: 1.5 (heart rate >100)-->low risk * PERC: 2 (age and hr >100) 7) Prophylaxis * Pepcid 20mg POBID * Lovenox 80mg SCQ12H * PMD: Contreras * Cardiology: oNy
[2017-05-03] MEDS ORDERED: Fluticasone-Salmeterol 500-50mcg Diskus IH SCH (22:00)
--- NOTE | 2017-05-03 23:10 | CARD ---
APPROVED REPORT EKG Measurement Heart [id number] <Conclusion> Atrial fibrillation with rapid ventricular response with premature ventricular or aberrantly conducted complexes Nonspecific T wave abnormality Abnormal ECG
--- NOTE | 2017-05-03 23:35 | CARD ---
APPROVED REPORT EXAM: Two-dimensional and M-mode echocardiogram with Doppler and color Doppler. Other Information Quality : GoodRhythm : NSR INDICATION Dyspnea Chest Pain Congestive Heart Failure M-Mode DIMENSIONS RVDd2.11 (2.1-3.2cm)Left Atrium (MM)4.02 (2.5-4.0cm) IVSd1.68 (0.7-1.1cm)Aortic Root3.59 (2.2-3.7cm) LVDd3.87 (4.0-5.6cm)Aortic Cusp Exc.2.23 (1.5-2.0cm) PWd1.64 (0.7-1.1cm)FS (%) 23 % LVDs2.97 (2.0-3.8cm)LVEF (%)47 (>50%) Aortic Valve AoV Peak Twhtharg672.7cm/Charline Peak GR.16mmHg Mitral Valve MV E Yesdmxug245.3cm/sMV A Wnkgxhkk34.2cm/sE/A ratio1.6 TDI E/Lateral E'0.0E/Medial E'0.0 Tricuspid Valve TR Peak [id number]/sTR Peak Gr.[id number] LEFT VENTRICLE The left ventricle is normal size. There is moderate concentric left ventricular hypertrophy. Left ventricle systolic function is borderline impaired. The Ejection Fraction is 45-50%. There is borderline global hypokinesis of the left ventricle. The left ventricular diastolic function is normal. RIGHT VENTRICLE The right ventricle is normal size. There is normal right ventricular wall thickness. The right ventricular systolic function is normal. ATRIA The left atrium is borderline dilated. The right atrium size is normal. The interatrial septum is intact with no evidence for an atrial septal defect. AORTIC VALVE The aortic valve is normal in structure. No aortic regurgitation is present. There is no aortic valvular stenosis. There is no aortic valvular vegetation. MITRAL VALVE The mitral valve is normal in structure. There is no evidence of mitral valve prolapse. There is no mitral valve stenosis. Mitral regurgitation is mild. TRICUSPID VALVE The tricuspid valve is normal in structure. There is trace to mild tricuspid regurgitation. Right ventricular systolic pressure is estimated at 30-40 mmHg. There is mild pulmonary hypertension. PULMONIC VALVE The pulmonic valve is not well visualized. There is no pulmonic valvular regurgitation. GREAT VESSELS The aortic root is normal in size. PERICARDIAL EFFUSION There is no significant pericardial effusion. <Conclusion> Left ventricle systolic function is mildly impaired. The Ejection Fraction is 45-50%. Hypertensive heart disease. No aortic regurgitation is present. Mitral regurgitation is mild. There is trace to mild tricuspid regurgitation. There is mild pulmonary hypertension. There is no pulmonic valvular regurgitation.
[2017-05-04] MEDS: Enoxaparin 80 mg Syringe SC SCH (04:32)
[2017-05-04 08:40] LABS: BASO % 0.2 % (0.0-2.0); LYMPH # 1.3 K/uL (1.0-4.3); LYMPH % 8.6 % (20.0-40.0); MEAN CELL VOLUME 86.3 fL (81.0-99.0); MEAN CORPUSCULAR HEMOGLOBIN 28.9 pg (27.0-31.0); MEAN CORPUSCULAR HGB CONC 33.4 g/dL (33.0-37.0); MEAN PLATELET VOLUME 9.2 fL (7.2-11.7); NRBC % 0.1 % (0.0-2.0); PLATELET COUNT 297 K/uL (130-400); RED CELL DISTRIBUTION WIDTH 13.9 % (11.5-14.5); WHITE BLOOD COUNT 14.8 K/uL (4.8-10.8)
[2017-05-04 08:52] LABS: CHLORIDE 100 mmol/L (98-107)
[2017-05-04 08:53] LABS: SODIUM 134 mmol/L (132-148)
[2017-05-04 08:55] LABS: CHOLESTEROL 255 mg/dL (0-199); GFR AFRICAN-AMERICAN > 60
[2017-05-04 08:56] LABS: ALB/GLOB RATIO 1.2 (1.0-2.1); ALKALINE PHOSPHATASE 75 U/L (38-126); ALT/SGPT 32 U/L (9-52); AST/SGOT 28 U/L (14-36); BILIRUBIN,TOTAL 0.7 mg/dL (0.2-1.3); BLOOD UREA NITROGEN 27 mg/dL (7-17); CALCIUM 9.8 mg/dl (8.6-10.4); CARBON DIOXIDE 20 mmol/L (22-30); GLUCOSE,RANDOM 175 mg/dL (65-105); TOTAL PROTEIN 7.7 g/dL (6.3-8.3)
[2017-05-04 10:19] LABS: NEUTROPHIL 76 % (50-75); REACTIVE LYMPHOCYTES 1 % (0-0); TOTAL CELLS COUNTED 100
--- NOTE | 2017-05-04 11:12 | CP.PCM.CON ---
<Abdi Heredia - Last Filed: 05/04/17 17:21> History of Present Illness - History of Present Illness History of Present Illness: Cardiology Consult Note- Dr. Chung's service CC: shortness of breath and chest pain HPI: 51 year old female with past medical history significant for Asthma, HTN, questionable mild stroke at the age of 22 and cardiac murmur presents after experiencing shortness of breath with sharp mid-sternal chest pain one day prior. Patient states that she had been experiencing these symptoms over the weekend without relief and thus went to her primary medical doctor for further assessment. While there, her doctor gave her steroids and a treatment which provided minimal improvement. Patient states that she was then sent for further imaging workup however her symptoms still did not appear to improve. She states that she began experiencing increased shortness of breath and pain and was told by her PMD to then go straight to the emergency room to be evaluated. Patient described the pain as sharp and rated a 9/10 without relieving factors. It appears that taking deep breaths worsened her symptoms. Patient admits to shortness of breath after walking the distance of a few feet which is not her norm. Currently, she denies subjective fevers or chills, chest pain, palpitations, nausea, vomiting, headaches, paresthesias, radiation of pain at this time. PMHx- as stated above PSHx- C/S in 1984 and 1991, Total Hysterectomy in 2007, Cholecystectomy in 1995 Fam Hx- Mother had liver cancer which was diagnosed at 61 years of age; Father had lung cancer diagnosed at 78 years of age Social Hx- denies tobacco, alcohol or illicit drug use Meds- ASA 81 mg, BP medications, Asthma medications, Cough suppressant (Unsure of some of the names) Allergies- Morphine causes anaphylaxis, Latex causes hives, PMD- Dr. Chairez Review of Systems - Constitutional Constitutional: absent: Excessive Sweating, Fever, Headache - EENT Eyes: absent: Blurred Vision, Change in Vision Nose/Mouth/Throat: absent: Nasal Congestion, Nasal Discharge - Cardiovascular Cardiovascular: Chest Pain, Chest Pain at Rest, Dyspnea. absent: Pedal Edema - Respiratory Respiratory: Dyspnea, Dyspnea on Exertion - Gastrointestinal Gastrointestinal: absent: Nausea, Vomiting - Musculoskeletal Musculoskeletal: absent: Back Pain, Neck Pain - Integumentary Integumentary: absent: Dry Skin, Wounds - Neurological Neurological: absent: Tingling, Weakness - Hematologic/Lymphatic Hematologic: absent: Easy Bleeding, Easy Bruising Past Patient History - Past Medical History & Family History Past Medical History?: Yes - Past Social History Smoking Status: Never Smoked - CARDIAC Hx Hypertension: Yes - PULMONARY Hx Asthma: Yes - NEUROLOGICAL Hx Neurological Disorder: No - HEENT Hx HEENT Problems: No - RENAL Hx Kidney Stones: Yes () - ENDOCRINE/METABOLIC Hx Endocrine Disorders: No - HEMATOLOGICAL/ONCOLOGICAL Hx Blood Disorders: No - INTEGUMENTARY Hx Dermatological Problems: No - MUSCULOSKELETAL/RHEUMATOLOGICAL Hx Musculoskeletal Disorders: No Hx Falls: No - GASTROINTESTINAL Hx Gastrointestinal Disorders: No - GENITOURINARY/GYNECOLOGICAL Hx Genitourinary Disorders: No - PSYCHIATRIC Hx Substance Use: No - SURGICAL HISTORY Hx Cholecystectomy: Yes - ANESTHESIA Hx Anesthesia: Yes Hx Anesthesia Reactions: No Hx Malignant Hyperthermia: No Meds Allergies/Adverse Reactions: Allergies Allergy/AdvReac Type Severity Reaction Status Date / Time Latex, Natural Rubber Allergy Intermediate RASH Verified 05/03/17 10:30 morphine Allergy Intermediate VOMITING Verified 05/03/17 10:30 - Medications Medications: Current Medications Albuterol Sulfate (Albuterol 0.083% Inhal Audra (2.5 Mg/3 Ml) Ud) 2.5 mg IH RQ6 PRN PRN Reason: Shortness of Breath Diltiazem HCl (Cardizem) 60 mg PO QID [facility] Last Admin: 05/04/17 09:06 Dose: 60 mg Enoxaparin Sodium (Lovenox) 80 mg SC Q12H [facility] Last Admin: 05/04/17 04:32 Dose: Not Given Famotidine (Pepcid) 20 mg PO BID [facility] Last Admin: 05/04/17 09:06 Dose: 20 mg Hydrochlorothiazide (Hydrodiuril) 25 mg PO DAILY [facility] Last Admin: 05/04/17 09:06 Dose: 25 mg Losartan Potassium (Cozaar) 100 mg PO DAILY [facility] Last Admin: 05/04/17 09:06 Dose: 100 mg Montelukast Sodium (Singulair) 10 mg PO DAILY [facility] Last Admin: 05/04/17 09:06 Dose: 10 mg Fluticasone/Salmeterol (Advair Diskus 500/50) 1 puff IH RQ12 [facility] Physical Exam - Constitutional Appears: Non-toxic, No Acute Distress - Head Exam Head Exam: ATRAUMATIC, NORMAL INSPECTION, NORMOCEPHALIC - Eye Exam Eye Exam: EOMI, Normal appearance, PERRL Pupil Exam: NORMAL ACCOMODATION - ENT Exam ENT Exam: Mucous Membranes Moist - Neck Exam Neck exam: Positive for: Full Rom - Respiratory Exam Respiratory Exam: Clear to Auscultation Bilateral, NORMAL BREATHING PATTERN. absent: Wheezes - Cardiovascular Exam Cardiovascular Exam: Irregular Rhythm, +S1, +S2. absent: JVD - GI/Abdominal Exam GI & Abdominal Exam: Normal Bowel Sounds, Soft - Extremities Exam Extremities exam: Positive for: full ROM - Back Exam Back exam: FULL ROM - Neurological Exam Neurological exam: Alert, Oriented x3 - Psychiatric Exam Psychiatric exam: Normal Affect, Normal Mood - Skin Skin Exam: Dry, Intact, Normal Color, Warm Results - Vital Signs Recent Vital Signs: Last Vital Signs Temp 98.2 F 05/04/17 07:30 Pulse 128 H 05/04/17 07:44 Resp 18 05/04/17 07:30 BP 137/78 05/04/17 07:30 Pulse Ox 95 05/04/17 07:30 - Labs Result Diagrams: 05/04/17 08:21 05/04/17 08:21 Labs: Laboratory Results - last 24 hr 05/03/17 05/03/17 05/03/17 06:20 11:49 11:49 WBC 13.1 H D RBC 5.45 H Hgb 15.7 Hct 46.3 MCV 85.0 D MCH 28.8 MCHC 33.9 RDW 13.8 Plt Count 296 MPV 9.0 Neut % (Auto) 79.1 H Lymph % (Auto) 14.4 L [place] % (Auto) 6.0 Eos % (Auto) 0.1 Baso % (Auto) 0.4 Neut # 10.4 H Lymph # 1.9 [place] # 0.8 Eos # 0.0 Baso # 0.1 Neutrophils % (Manual) Band Neutrophils % Lymphocytes % (Manual) Reactive Lymphs % Monocytes % (Manual) Toxic Granulation Platelet Estimate RBC Morphology D-Dimer, Quantitative Sodium 136 Potassium 4.2 Chloride 100 Carbon Dioxide 23 Anion Gap 16 BUN 20 H Creatinine 0.5 L Est GFR ( Amer) > 60 Est GFR (Non-Af Amer) > 60 POC Glucose (mg/dL) Random Glucose 125 H Hemoglobin A1c Calcium 9.6 Total Bilirubin 0.8 AST 24 ALT 30 Alkaline Phosphatase 70 Total Creatine Kinase CK-MB (Mass) Troponin I < 0.0120 Troponin I, Quant NT-Pro-B Natriuret Pep 2160 H Total Protein 7.9 Albumin 4.5 Globulin 3.4 Albumin/Globulin Ratio 1.3 Triglycerides Cholesterol LDL Cholesterol Direct HDL Cholesterol TSH 3rd Generation Urine HCG, Qual Urine Opiates Screen Urine Methadone Screen Ur Barbiturates Screen Ur Phencyclidine Scrn Ur Amphetamines Screen U Benzodiazepines Scrn U Oth Cocaine Metabols U Cannabinoids Screen Ur L.pneumophila Ag Negative 05/03/17 05/03/17 05/03/17 12:18 13:33 13:44 WBC RBC Hgb Hct MCV MCH MCHC RDW Plt Count MPV Neut % (Auto) Lymph % (Auto) [place] % (Auto) Eos % (Auto) Baso % (Auto) Neut # Lymph # [place] # Eos # Baso # Neutrophils % (Manual) Band Neutrophils % Lymphocytes % (Manual) Reactive Lymphs % Monocytes % (Manual) Toxic Granulation Platelet Estimate RBC Morphology D-Dimer, Quantitative 286 H Sodium Potassium Chloride Carbon Dioxide Anion Gap BUN Creatinine Est GFR ( Amer) Est GFR (Non-Af Amer) POC Glucose (mg/dL) Random Glucose Hemoglobin A1c Calcium Total Bilirubin AST ALT Alkaline Phosphatase Total Creatine Kinase CK-MB (Mass) Troponin I Troponin I, Quant NT-Pro-B Natriuret Pep Total Protein Albumin Globulin Albumin/Globulin Ratio Triglycerides Cholesterol LDL Cholesterol Direct HDL Cholesterol TSH 3rd Generation Urine HCG, Qual Negative Urine Opiates Screen Negative Urine Methadone Screen Negative Ur Barbiturates Screen Negative Ur Phencyclidine Scrn Negative Ur Amphetamines Screen Negative U Benzodiazepines Scrn Negative U Oth Cocaine Metabols Negative U Cannabinoids Screen Negative Ur L.pneumophila Ag 05/03/17 05/03/17 05/03/17 19:31 19:31 23:59 WBC RBC Hgb Hct MCV MCH MCHC RDW Plt Count MPV Neut % (Auto) Lymph % (Auto) [place] % (Auto) Eos % (Auto) Baso % (Auto) Neut # Lymph # [place] # Eos # Baso # Neutrophils % (Manual) Band Neutrophils % Lymphocytes % (Manual) Reactive Lymphs % Monocytes % (Manual) Toxic Granulation Platelet Estimate RBC Morphology D-Dimer, Quantitative Sodium Potassium Chloride Carbon Dioxide Anion Gap BUN Creatinine Est GFR ( Amer) Est GFR (Non-Af Amer) POC Glucose (mg/dL) Random Glucose Hemoglobin A1c Calcium Total Bilirubin AST ALT Alkaline Phosphatase Total Creatine Kinase 40 CK-MB (Mass) 1.29 Troponin I Troponin I, Quant < 0.0120 NT-Pro-B Natriuret Pep Total Protein Albumin Globulin Albumin/Globulin Ratio Triglycerides Cholesterol LDL Cholesterol Direct HDL Cholesterol TSH 3rd Generation 0.57 Urine HCG, Qual Negative Urine Opiates Screen Urine Methadone Screen Ur Barbiturates Screen Ur Phencyclidine Scrn Ur Amphetamines Screen U Benzodiazepines Scrn U Oth Cocaine Metabols U Cannabinoids Screen Ur L.pneumophila Ag 05/04/17 05/04/17 05/04/17 01:01 06:33 08:21 WBC 14.8 H RBC 5.10 Hgb 14.7 Hct 44.0 MCV 86.3 MCH 28.9 MCHC 33.4 RDW 13.9 Plt Count 297 MPV 9.2 Neut % (Auto) 84.2 H Lymph % (Auto) 8.6 L [place] % (Auto) 7.0 Eos % (Auto) 0.0 Baso % (Auto) 0.2 Neut # 12.4 H Lymph # 1.3 [place] # 1.0 H Eos # 0.0 Baso # 0.0 Neutrophils % (Manual) 76 H Band Neutrophils % 1 Lymphocytes % (Manual) 12 L Reactive Lymphs % 1 H Monocytes % (Manual) 10 Toxic Granulation Present Platelet Estimate Normal RBC Morphology Normal D-Dimer, Quantitative Sodium Potassium Chloride Carbon Dioxide Anion Gap BUN Creatinine Est GFR ( Amer) Est GFR (Non-Af Amer) POC Glucose (mg/dL) 164 H Random Glucose Hemoglobin A1c Calcium Total Bilirubin AST ALT Alkaline Phosphatase Total Creatine Kinase 45 CK-MB (Mass) 1.25 Troponin I Troponin I, Quant < 0.0120 NT-Pro-B Natriuret Pep Total Protein Albumin Globulin Albumin/Globulin Ratio Triglycerides Cholesterol LDL Cholesterol Direct HDL Cholesterol TSH 3rd Generation Urine HCG, Qual Urine Opiates Screen Urine Methadone Screen Ur Barbiturates Screen Ur Phencyclidine Scrn Ur Amphetamines Screen U Benzodiazepines Scrn U Oth Cocaine Metabols U Cannabinoids Screen Ur L.pneumophila Ag 05/04/17 05/04/17 08:21 08:21 WBC RBC Hgb Hct MCV MCH MCHC RDW Plt Count MPV Neut % (Auto) Lymph % (Auto) [place] % (Auto) Eos % (Auto) Baso % (Auto) Neut # Lymph # [place] # Eos # Baso # Neutrophils % (Manual) Band Neutrophils % Lymphocytes % (Manual) Reactive Lymphs % Monocytes % (Manual) Toxic Granulation Platelet Estimate RBC Morphology D-Dimer, Quantitative Sodium 134 Potassium 4.0 Chloride 100 Carbon Dioxide 20 L Anion Gap 18 BUN 27 H Creatinine 0.6 L Est GFR ( Amer) > 60 Est GFR (Non-Af Amer) > 60 POC Glucose (mg/dL) Random Glucose 175 H Hemoglobin A1c 6.3 Calcium 9.8 Total Bilirubin 0.7 AST 28 ALT 32 Alkaline Phosphatase 75 Total Creatine Kinase CK-MB (Mass) Troponin I Troponin I, Quant NT-Pro-B Natriuret Pep Total Protein 7.7 Albumin 4.3 Globulin 3.5 Albumin/Globulin Ratio 1.2 Triglycerides 201 H D Cholesterol 255 H LDL Cholesterol Direct 176 H HDL Cholesterol 67 TSH 3rd Generation Urine HCG, Qual Urine Opiates Screen Urine Methadone Screen Ur Barbiturates Screen Ur Phencyclidine Scrn Ur Amphetamines Screen U Benzodiazepines Scrn U Oth Cocaine Metabols U Cannabinoids Screen Ur L.pneumophila Ag Assessment & Plan (1) Atrial fibrillation Assessment and Plan: MEHRAN x3 negative On Cardizem 60 mg PO QID [id number] score of 3 (CHF, Female, HTN). On Eliquis 5 mg PO BID On Telemetry Monitoring- atrial fibrillation ( not rate controlled) on Tele. Responded to one dose of digoxin Continue to monitor. May need to adjust medications accordingly for better rate control. Status: Acute (2) Dyspnea Assessment and Plan: Elevated D-Dimer CT of Chest- Cannot definitively rule out emboli and this patient given full dose anticoagulation of lovenox; however patient refused lovenox injections. and thus this was switched to Eliquis. Albuterol, oxygen as needed BNP 2160 Echo: EF 45-50% with signs of hypertensive heart disease, mild mitral regurg, tricuspid regurg at this time. Status: Acute (3) Hypertension Assessment and Plan: HCTZ 25 mg PO daily, Cozaar daily Cont to monitor Status: Chronic (4) Impaired glucose tolerance Assessment and Plan: A1c 6.3 Discontinued accuchecks as patient is not receiving insulin or anti- hyperglycemic medications at this time. Diabetic Counseling as well as diet and exercise modifications Cont to monitor Status: Chronic (5) Hypercholesteremia Assessment and Plan: Elevated Lipid Panel Diet and exercise counseling Will start Crestor 2.5 mg PO HS Status: Chronic (6) Prophylactic measure Assessment and Plan: Eliquis 5 mg PO BID Pepcid 20 mg PO BID Status: Acute <Alfredo Chung - Last Filed: 05/04/17 22:39> Meds - Medications Medications: Current Medications Albuterol Sulfate (Albuterol 0.083% Inhal Audra (2.5 Mg/3 Ml) Ud) 2.5 mg IH RQ6 PRN PRN Reason: Shortness of Breath Apixaban (Eliquis) 5 mg PO BID [facility] Last Admin: 05/04/17 18:15 Dose: 5 mg Diltiazem HCl (Cardizem) 60 mg PO QID [facility] Last Admin: 05/04/17 21:41 Dose: 60 mg Famotidine (Pepcid) 20 mg PO BID [facility] Last Admin: 05/04/17 18:15 Dose: 20 mg Hydrochlorothiazide (Hydrodiuril) 25 mg PO DAILY [facility] Last Admin: 05/04/17 09:06 Dose: 25 mg Losartan Potassium (Cozaar) 100 mg PO DAILY [facility] Last Admin: 05/04/17 09:06 Dose: 100 mg Montelukast Sodium (Singulair) 10 mg PO DAILY [facility] Last Admin: 05/04/17 09:06 Dose: 10 mg Rosuvastatin Calcium (Crestor) 2.5 mg PO HS [facility] Fluticasone/Salmeterol (Advair Diskus 500/50) 1 puff IH RQ12 [facility] Results - Vital Signs Recent Vital Signs: Last Vital Signs Temp 98.4 F 05/04/17 15:59 Pulse 92 H 05/04/17 16:00 Resp 20 05/04/17 15:59 BP 115/78 05/04/17 15:59 Pulse Ox 95 05/04/17 15:59 - Labs Result Diagrams: 05/04/17 08:21 05/04/17 08:21 Labs: Laboratory Results - last 24 hr 05/03/17 05/03/17 05/04/17 06:20 23:59 01:01 WBC RBC Hgb Hct MCV MCH MCHC RDW Plt Count MPV Neut % (Auto) Lymph % (Auto) [place] % (Auto) Eos % (Auto) Baso % (Auto) Neut # Lymph # [place] # Eos # Baso # Neutrophils % (Manual) Band Neutrophils % Lymphocytes % (Manual) Reactive Lymphs % Monocytes % (Manual) Toxic Granulation Platelet Estimate RBC Morphology Sodium Potassium Chloride Carbon Dioxide Anion Gap BUN Creatinine Est GFR ( Amer) Est GFR (Non-Af Amer) POC Glucose (mg/dL) Random Glucose Hemoglobin A1c Calcium Total Bilirubin AST ALT Alkaline Phosphatase Total Creatine Kinase 45 CK-MB (Mass) 1.25 Troponin I, Quant < 0.0120 Total Protein Albumin Globulin Albumin/Globulin Ratio Triglycerides Cholesterol LDL Cholesterol Direct HDL Cholesterol Urine HCG, Qual Negative Ur L.pneumophila Ag Negative 05/04/17 05/04/17 05/04/17 06:33 08:21 08:21 WBC 14.8 H RBC 5.10 Hgb 14.7 Hct 44.0 MCV 86.3 MCH 28.9 MCHC 33.4 RDW 13.9 Plt Count 297 MPV 9.2 Neut % (Auto) 84.2 H Lymph % (Auto) 8.6 L [place] % (Auto) 7.0 Eos % (Auto) 0.0 Baso % (Auto) 0.2 Neut # 12.4 H Lymph # 1.3 [place] # 1.0 H Eos # 0.0 Baso # 0.0 Neutrophils % (Manual) 76 H Band Neutrophils % 1 Lymphocytes % (Manual) 12 L Reactive Lymphs % 1 H Monocytes % (Manual) 10 Toxic Granulation Present Platelet Estimate Normal RBC Morphology Normal Sodium 134 Potassium 4.0 Chloride 100 Carbon Dioxide 20 L Anion Gap 18 BUN 27 H Creatinine 0.6 L Est GFR ( Amer) > 60 Est GFR (Non-Af Amer) > 60 POC Glucose (mg/dL) 164 H Random Glucose 175 H Hemoglobin A1c Calcium 9.8 Total Bilirubin 0.7 AST 28 ALT 32 Alkaline Phosphatase 75 Total Creatine Kinase CK-MB (Mass) Troponin I, Quant Total Protein 7.7 Albumin 4.3 Globulin 3.5 Albumin/Globulin Ratio 1.2 Triglycerides 201 H D Cholesterol 255 H LDL Cholesterol Direct 176 H HDL Cholesterol 67 Urine HCG, Qual Ur L.pneumophila Ag 05/04/17 05/04/17 08:21 11:54 WBC RBC Hgb Hct MCV MCH MCHC RDW Plt Count MPV Neut % (Auto) Lymph % (Auto) [place] % (Auto) Eos % (Auto) Baso % (Auto) Neut # Lymph # [place] # Eos # Baso # Neutrophils % (Manual) Band Neutrophils % Lymphocytes % (Manual) Reactive Lymphs % Monocytes % (Manual) Toxic Granulation Platelet Estimate RBC Morphology Sodium Potassium Chloride Carbon Dioxide Anion Gap BUN Creatinine Est GFR ( Amer) Est GFR (Non-Af Amer) POC Glucose (mg/dL) 202 H Random Glucose Hemoglobin A1c 6.3 Calcium Total Bilirubin AST ALT Alkaline Phosphatase Total Creatine Kinase CK-MB (Mass) Troponin I, Quant Total Protein Albumin Globulin Albumin/Globulin Ratio Triglycerides Cholesterol LDL Cholesterol Direct HDL Cholesterol Urine HCG, Qual Ur L.pneumophila Ag Assessment & Plan - Assessment and Plan (Free Text) Assessment: Patient seen and evaluated with the medical lab technologist Plan of care as documented
[2017-05-04] MEDS ORDERED: Digoxin 125 mcg (0.125 mg) Tab PO STA (11:25)
--- NOTE | 2017-05-04 14:01 | CP.PCM.PN ---
<LacyCarlie - Last Filed: 05/04/17 14:15> Subjective - Date & Time of Evaluation Date of Evaluation: 05/04/17 Time of Evaluation: 13:58 - Subjective Subjective: Internal Medicine Progress note for Dr. Arriaza Seen at bedside with Erin Torres, daughter Meenu Torres, grand daughter Joby Petty, andre Petty, cousin Patient states her shortness of breath is getting better. Patient denies chest pain at this time. Patient told about her 6.3 A1c and told her she needs to do diet change and lifestyle modifications. Patient was confused about the injections of her lower abdomen and explained to patient that it was for her new onset atrial fibrillation to decrease risk of stroke. Patient switched to Eliquis 5mg POBID per Cardiology because she denied the injection in the morning. Patient had no other complaints at this time. Patient's daughter stated that patient's granddaughter has high cholesterol even though she plays soccer for the school. Objective - Vital Signs/Intake and Output Vital Signs (last 24 hours): Temp Pulse Resp BP Pulse Ox 98.2 F 101 H 18 137/78 95 05/04/17 07:30 05/04/17 12:03 05/04/17 07:30 05/04/17 07:30 05/04/17 07:30 Intake and Output: 05/04/17 05/04/17 06:59 18:59 Intake Total 118 Balance 118 - Medications Medications: Current Medications Albuterol Sulfate (Albuterol 0.083% Inhal Audra (2.5 Mg/3 Ml) Ud) 2.5 mg IH RQ6 PRN PRN Reason: Shortness of Breath Apixaban (Eliquis) 5 mg PO BID [facility] Last Admin: 05/04/17 12:30 Dose: 5 mg Diltiazem HCl (Cardizem) 60 mg PO QID [facility] Last Admin: 05/04/17 13:12 Dose: 60 mg Famotidine (Pepcid) 20 mg PO BID [facility] Last Admin: 05/04/17 09:06 Dose: 20 mg Hydrochlorothiazide (Hydrodiuril) 25 mg PO DAILY [facility] Last Admin: 05/04/17 09:06 Dose: 25 mg Losartan Potassium (Cozaar) 100 mg PO DAILY [facility] Last Admin: 05/04/17 09:06 Dose: 100 mg Montelukast Sodium (Singulair) 10 mg PO DAILY [facility] Last Admin: 05/04/17 09:06 Dose: 10 mg Fluticasone/Salmeterol (Advair Diskus 500/50) 1 puff IH RQ12 [facility] - Labs Labs: 05/04/17 08:21 05/04/17 08:21 - Constitutional Appears: Non-toxic - Head Exam Head Exam: NORMAL INSPECTION - Eye Exam Eye Exam: EOMI, Normal appearance - ENT Exam ENT Exam: Mucous Membranes Moist - Neck Exam Neck Exam: Full ROM - Respiratory Exam Respiratory Exam: NORMAL BREATHING PATTERN. absent: Accessory Muscle Use, Respiratory Distress - Cardiovascular Exam Cardiovascular Exam: Tachycardia, Irregular Rhythm, +S1, +S2 - GI/Abdominal Exam GI & Abdominal Exam: Soft, Normal Bowel Sounds. absent: Tenderness - Extremities Exam Extremities Exam: Full ROM Additional comments: minimal leg edema. no pitting edema - Back Exam Back Exam: Full ROM, NORMAL INSPECTION - Neurological Exam Neurological Exam: Alert, Awake, Oriented x3 - Psychiatric Exam Psychiatric exam: Normal Affect, Normal Mood - Skin Skin Exam: Dry, Intact, Normal Color, Warm Assessment and Plan - Assessment and Plan (Free Text) Assessment: Assessment: Dr. Marcelino PMD [facility] Prestidigitator: Dr. Berumen Atrial Fibrillation RVR Cardiology Consult: Dr. Sheldon LAURENT neg x 3 TSH 0.57 CHADS: 2 (HTN, CHF) CHADSVasc: 3 (CHF, Female, HTN) EF <47% BNP 2160 HAS-BLED score: 0 points, low risk for major bleeding Cardizem 60mg POQID 0.125mg PO Digoxin ONCE Cozaar 100mg POQD Cardiology Consult: Dr. Chung Hypertriglyceridemia, Hypercholesterolemia, Hyperlipidemia Triglycerides 201 Cholesterol 255 LDL 176 HDL 67 Butter Wrapper referral ordered 05/04 Hx Asthma, SOB r/o Pneumonia 05/04 Pulmonology Consult: Dr. Sosa: cardiac eval suggested M. pneumoniae ab IgG S. 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 referral ordered 05/04 Prophylaxis Pepcid 20mg POBID Lovenox 80mg SC Q12H, discontinued due to patient's refusal to get subcutaneous medication Eliquis 5mg POBID added 05/04 Carlie House, DO PGY1 <Randi Arriaza V - Last Filed: 05/05/17 18:36> Objective - Vital Signs/Intake and Output Vital Signs (last 24 hours): Temp Pulse Resp BP Pulse Ox 97.8 F 62 20 104/67 97 05/05/17 15:42 05/05/17 15:42 05/05/17 15:42 05/05/17 15:42 05/05/17 15:42 Intake and Output: 05/05/17 05/05/17 06:59 18:59 Intake Total 240 Balance 240 - Medications Medications: Current Medications Albuterol Sulfate (Albuterol 0.083% Inhal Audra (2.5 Mg/3 Ml) Ud) 2.5 mg IH RQ6 PRN PRN Reason: Shortness of Breath Apixaban (Eliquis) 5 mg PO BID [facility] Last Admin: 05/05/17 11:02 Dose: 5 mg Digoxin (Lanoxin) 0.125 mg PO DAILY@1800 [facility] Last Admin: 05/05/17 18:25 Dose: 0.125 mg Diltiazem HCl (Cardizem) 90 mg PO QID [facility] Last Admin: 05/05/17 15:08 Dose: 90 mg Famotidine (Pepcid) 20 mg PO BID [facility] Last Admin: 05/05/17 18:25 Dose: 20 mg Hydrochlorothiazide (Hydrodiuril) 25 mg PO DAILY [facility] Last Admin: 05/05/17 11:01 Dose: 25 mg Losartan Potassium (Cozaar) 100 mg PO DAILY [facility] Last Admin: 05/05/17 11:01 Dose: 100 mg Montelukast Sodium (Singulair) 10 mg PO DAILY [facility] Last Admin: 05/05/17 11:02 Dose: 10 mg Rosuvastatin Calcium (Crestor) 2.5 mg PO HS [facility] Last Admin: 05/04/17 23:29 Dose: 2.5 mg Fluticasone/Salmeterol (Advair Diskus 500/50) 1 puff IH RQ12 [facility] - Labs Labs: 05/05/17 11:35 05/05/17 11:35 Attending/Attestation - Attestation I have personally seen and examined this patient.: Yes I have fully participated in the care of the patient.: Yes I have reviewed all pertinent clinical information, including history, physical exam and plan: Yes Notes (Text): This is late computer entry for 05/04/17. Patient seen at bedside with family at bedside. Patient allows us to speak with her in front of family. Patient with history of impaired glucose tolerance and patient is aware to make diet and exercise modifications; her pmd, Dr. Chairez gave her instructions and diet guide. Patient refused Lovenox in the morning because she does not like the subcutaneous needle. patient started on Eliquis, explained to the patient w family present that atrial fibrillation comes with stroke risk, and to prevent stroke, recommended for blood thinner to prevent clots. patient is aware of bleeding risk and explained with her with family present. Patient's heart rate improved with dose of IV digoxin X1. Will follow-up with cardiology. Explained echocardiogram result with the patient as well. Assessment/Plan 1) New Diagnosed Atrial Fibrillation Atrial Fibrillation RVR * Cardiology Consult: Dr. Chung on board-->covering Dr. 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) * Patient has completed myocardial stress test recently which is normal; report available in the EMR * MEHRAN neg x 3 * f/u TSH-->within normal limits * CHADSVasc: 3 (suspected chf, hypertension) * HAS-BLED score: 0 points * Eliquis 5mg PO bid * Cardizem 60mg PO QID * Digoxin 0.125mg IV q daily * UDS: negative * CT Chest r/o PE: PE ruled out * monitor on telemetry 2) Hypertensive Cardiomyopathy Systolic Congestive Heart Failure * Heart appears enlarged on chest xray * elevated probnp * Echocardiogram (05/03/17): left ventricle systolic function is mildly impaired , ejection fraction: 45-50%, hypertensive heart disease, no aortic regurgitation is present, mitral regurgitation, trace to mild tricupsid regurgitation * hold beta-dayana secondary to se: bronchospasm; * patient takes aspirin outpatient, on Arb, on calcium channel dayana, and not currently on statin until lipid panel result * Lipid panel: TG 201, cholestrol: 255, LDL: 176, HDL; 67 3) Hx of Asthma, controlled * Pulmonology Consult: Dr. 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 pneumoniae ab IgG, S. pneumoniae ag Home medications: * Albuterol 2.5mg IH RQ6H PRN SOB * Advair 250/50 1 puff inhaled Q 12h * Montelukast 10mg POQDaily 4) Hx of HTN * Hydrochlorothiazide 25mg POQDaily and Valsartan-->switched to Cozaar 100mg PO daily during hospitalization 5) Hx of Impaired glucose tolerance * Hgb A1c: 6.3 * Accuchecks QAC and HS 6) Dyslipidemia * Lipid panel: TG 201, cholestrol: 255, LDL: 176, HDL; 67 * Will start statin 7) Elevated d-dimer * Ct Chest PE protocol-->negative for PE * Will order venous doppler low suspicion for DVT-->pending * Well's Criteria: 1.5 (heart rate >100)-->low risk * PERC: 2 (age and hr >100) 7) Prophylaxis * Pepcid 20mg POBID * Eliquis 5mg PO bid * PMD: Contreras * Cardiology: Noy
--- NOTE | 2017-05-04 15:35 | CARD ---
APPROVED REPORT EKG Measurement Heart [id number] <Conclusion> Atrial fibrillation Nonspecific T wave abnormality Abnormal ECG
--- NOTE | 2017-05-04 18:14 | CP.PCM.CON ---
History of Present Illness - History of Present Illness History of Present Illness: Reason for consultation: Shortness of breath and history of asthma 51 year old female with PMH of asthma and HTN, presents to the ED with SOB that started 2 days ago and progressively got worse. Patient went to see PMD and was told it was an asthma exacerbation, medications were changed and was sent for CXR today. CXR was done and Patient called PMD and stated that SOB was worse and was told by PMD to come to the ED. Patient admits to midsternal chest pain that comes and goes for the past two days. In the emergency room patient was found to be in atrial fibrillation. CT angiogram was negative for large pulmonary embolism marked possible very small defect in the right upper lobe branch. 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 [employer], patient has pets at home, no alcohol, smoking, or drugs Allergies: latex, natural rubber, morphine Review of Systems - Review of Systems All systems: reviewed and no additional remarkable complaints except (Shortness of breath and cough) Past Patient History - Past Medical History & Family History Past Medical History?: Yes - Past Social History Smoking Status: Never Smoked - CARDIAC Hx Hypertension: Yes - PULMONARY Hx Asthma: Yes - NEUROLOGICAL Hx Neurological Disorder: No - HEENT Hx HEENT Problems: No - RENAL Hx Kidney Stones: Yes () - ENDOCRINE/METABOLIC Hx Endocrine Disorders: No - HEMATOLOGICAL/ONCOLOGICAL Hx Blood Disorders: No - INTEGUMENTARY Hx Dermatological Problems: No - MUSCULOSKELETAL/RHEUMATOLOGICAL Hx Musculoskeletal Disorders: No Hx Falls: No - GASTROINTESTINAL Hx Gastrointestinal Disorders: No - GENITOURINARY/GYNECOLOGICAL Hx Genitourinary Disorders: No - PSYCHIATRIC Hx Substance Use: No - SURGICAL HISTORY Hx Cholecystectomy: Yes - ANESTHESIA Hx Anesthesia: Yes Hx Anesthesia Reactions: No Hx Malignant Hyperthermia: No Meds Allergies/Adverse Reactions: Allergies Allergy/AdvReac Type Severity Reaction Status Date / Time Latex, Natural Rubber Allergy Intermediate RASH Verified 05/03/17 10:30 morphine Allergy Intermediate VOMITING Verified 05/03/17 10:30 - Medications Medications: Current Medications Albuterol Sulfate (Albuterol 0.083% Inhal Audra (2.5 Mg/3 Ml) Ud) 2.5 mg IH RQ6 PRN PRN Reason: Shortness of Breath Apixaban (Eliquis) 5 mg PO BID [facility] Last Admin: 05/04/17 12:30 Dose: 5 mg Diltiazem HCl (Cardizem) 60 mg PO QID [facility] Last Admin: 05/04/17 13:12 Dose: 60 mg Famotidine (Pepcid) 20 mg PO BID [facility] Last Admin: 05/04/17 09:06 Dose: 20 mg Hydrochlorothiazide (Hydrodiuril) 25 mg PO DAILY [facility] Last Admin: 05/04/17 09:06 Dose: 25 mg Losartan Potassium (Cozaar) 100 mg PO DAILY [facility] Last Admin: 05/04/17 09:06 Dose: 100 mg Montelukast Sodium (Singulair) 10 mg PO DAILY [facility] Last Admin: 05/04/17 09:06 Dose: 10 mg Fluticasone/Salmeterol (Advair Diskus 500/50) 1 puff IH RQ12 [facility] Physical Exam - Head Exam Head Exam: ATRAUMATIC, NORMOCEPHALIC - Eye Exam Eye Exam: Normal appearance - ENT Exam ENT Exam: Mucous Membranes Moist - Neck Exam Neck exam: Positive for: Normal Inspection - Respiratory Exam Respiratory Exam: Clear to Auscultation Bilateral - Cardiovascular Exam Cardiovascular Exam: Irregular Rhythm - GI/Abdominal Exam GI & Abdominal Exam: Normal Bowel Sounds, Soft - Extremities Exam Extremities exam: Positive for: normal inspection - Neurological Exam Neurological exam: Alert, Oriented x3 Results - Vital Signs Recent Vital Signs: Last Vital Signs Temp 98.4 F 05/04/17 15:59 Pulse 92 H 05/04/17 16:00 Resp 20 05/04/17 15:59 BP 115/78 05/04/17 15:59 Pulse Ox 95 05/04/17 15:59 - Labs Result Diagrams: 05/04/17 08:21 05/04/17 08:21 Labs: Laboratory Results - last 24 hr 05/03/17 05/03/17 05/03/17 06:20 19:31 19:31 WBC RBC Hgb Hct MCV MCH MCHC RDW Plt Count MPV Neut % (Auto) Lymph % (Auto) [place] % (Auto) Eos % (Auto) Baso % (Auto) Neut # Lymph # [place] # Eos # Baso # Neutrophils % (Manual) Band Neutrophils % Lymphocytes % (Manual) Reactive Lymphs % Monocytes % (Manual) Toxic Granulation Platelet Estimate RBC Morphology Sodium Potassium Chloride Carbon Dioxide Anion Gap BUN Creatinine Est GFR ( Amer) Est GFR (Non-Af Amer) POC Glucose (mg/dL) Random Glucose Hemoglobin A1c Calcium Total Bilirubin AST ALT Alkaline Phosphatase Total Creatine Kinase 40 CK-MB (Mass) 1.29 Troponin I, Quant < 0.0120 Total Protein Albumin Globulin Albumin/Globulin Ratio Triglycerides Cholesterol LDL Cholesterol Direct HDL Cholesterol TSH 3rd Generation 0.57 Urine HCG, Qual Ur L.pneumophila Ag Negative 05/03/17 05/04/17 05/04/17 23:59 01:01 06:33 WBC RBC Hgb Hct MCV MCH MCHC RDW Plt Count MPV Neut % (Auto) Lymph % (Auto) [place] % (Auto) Eos % (Auto) Baso % (Auto) Neut # Lymph # [place] # Eos # Baso # Neutrophils % (Manual) Band Neutrophils % Lymphocytes % (Manual) Reactive Lymphs % Monocytes % (Manual) Toxic Granulation Platelet Estimate RBC Morphology Sodium Potassium Chloride Carbon Dioxide Anion Gap BUN Creatinine Est GFR ( Amer) Est GFR (Non-Af Amer) POC Glucose (mg/dL) 164 H Random Glucose Hemoglobin A1c Calcium Total Bilirubin AST ALT Alkaline Phosphatase Total Creatine Kinase 45 CK-MB (Mass) 1.25 Troponin I, Quant < 0.0120 Total Protein Albumin Globulin Albumin/Globulin Ratio Triglycerides Cholesterol LDL Cholesterol Direct HDL Cholesterol TSH 3rd Generation Urine HCG, Qual Negative Ur L.pneumophila Ag 05/04/17 05/04/17 05/04/17 08:21 08:21 08:21 WBC 14.8 H RBC 5.10 Hgb 14.7 Hct 44.0 MCV 86.3 MCH 28.9 MCHC 33.4 RDW 13.9 Plt Count 297 MPV 9.2 Neut % (Auto) 84.2 H Lymph % (Auto) 8.6 L [place] % (Auto) 7.0 Eos % (Auto) 0.0 Baso % (Auto) 0.2 Neut # 12.4 H Lymph # 1.3 [place] # 1.0 H Eos # 0.0 Baso # 0.0 Neutrophils % (Manual) 76 H Band Neutrophils % 1 Lymphocytes % (Manual) 12 L Reactive Lymphs % 1 H Monocytes % (Manual) 10 Toxic Granulation Present Platelet Estimate Normal RBC Morphology Normal Sodium 134 Potassium 4.0 Chloride 100 Carbon Dioxide 20 L Anion Gap 18 BUN 27 H Creatinine 0.6 L Est GFR ( Amer) > 60 Est GFR (Non-Af Amer) > 60 POC Glucose (mg/dL) Random Glucose 175 H Hemoglobin A1c 6.3 Calcium 9.8 Total Bilirubin 0.7 AST 28 ALT 32 Alkaline Phosphatase 75 Total Creatine Kinase CK-MB (Mass) Troponin I, Quant Total Protein 7.7 Albumin 4.3 Globulin 3.5 Albumin/Globulin Ratio 1.2 Triglycerides 201 H D Cholesterol 255 H LDL Cholesterol Direct 176 H HDL Cholesterol 67 TSH 3rd Generation Urine HCG, Qual Ur L.pneumophila Ag 05/04/17 11:54 WBC RBC Hgb Hct MCV MCH MCHC RDW Plt Count MPV Neut % (Auto) Lymph % (Auto) [place] % (Auto) Eos % (Auto) Baso % (Auto) Neut # Lymph # [place] # Eos # Baso # Neutrophils % (Manual) Band Neutrophils % Lymphocytes % (Manual) Reactive Lymphs % Monocytes % (Manual) Toxic Granulation Platelet Estimate RBC Morphology Sodium Potassium Chloride Carbon Dioxide Anion Gap BUN Creatinine Est GFR ( Amer) Est GFR (Non-Af Amer) POC Glucose (mg/dL) 202 H Random Glucose Hemoglobin A1c Calcium Total Bilirubin AST ALT Alkaline Phosphatase Total Creatine Kinase CK-MB (Mass) Troponin I, Quant Total Protein Albumin Globulin Albumin/Globulin Ratio Triglycerides Cholesterol LDL Cholesterol Direct HDL Cholesterol TSH 3rd Generation Urine HCG, Qual Ur L.pneumophila Ag Assessment & Plan (1) Asthma exacerbation Status: Acute Comment: Continue nebulizer treatment and inhaled steroids. Unlikely pulmonary embolism. continue anticoagulation (2) Atrial fibrillation Status: Acute
[2017-05-04] MEDS ORDERED: Rosuvastatin Calcium 2.5 mg Tab PO SCH (22:00)
[2017-05-05] MEDS ORDERED: Influenza Vaccine 60 mcg/0.5 mL SYR (4YR UP) IM ONE (10:00)
[2017-05-05 11:44] LABS: BASO # 0.1 K/uL (0.0-0.2); BASO % 0.5 % (0.0-2.0); EOS # 0.1 K/uL (0.0-0.7); EOS % 0.8 % (0.0-4.0); HEMATOCRIT 45.5 % (34.0-47.0); LYMPH % 23.4 % (20.0-40.0); MEAN CELL VOLUME 85.1 fL (81.0-99.0); MEAN CORPUSCULAR HEMOGLOBIN 28.4 pg (27.0-31.0); MEAN CORPUSCULAR HGB CONC 33.4 g/dL (33.0-37.0); MEAN PLATELET VOLUME 9.8 fL (7.2-11.7); MONO # 0.9 K/uL (0.0-0.8); MONO % 7.4 % (0.0-10.0); WHITE BLOOD COUNT 12.6 K/uL (4.8-10.8)
[2017-05-05 11:59] LABS: CHLORIDE 100 mmol/L (98-107); POTASSIUM 4.1 mmol/L (3.6-5.2); SODIUM 135 mmol/L (132-148)
[2017-05-05 12:01] LABS: AST/SGOT 26 U/L (14-36); BILIRUBIN,TOTAL 0.8 mg/dL (0.2-1.3); CARBON DIOXIDE 21 mmol/L (22-30); GFR AFRICAN-AMERICAN > 60
[2017-05-05 12:02] LABS: ALB/GLOB RATIO 1.2 (1.0-2.1); ALKALINE PHOSPHATASE 70 U/L (38-126); ALT/SGPT 37 U/L (9-52); BLOOD UREA NITROGEN 28 mg/dL (7-17); CALCIUM 9.6 mg/dl (8.6-10.4); GLUCOSE,RANDOM 157 mg/dL (65-105); TOTAL PROTEIN 7.9 g/dL (6.3-8.3)
--- NOTE | 2017-05-05 16:30 | CP.PCM.PN ---
<Carlie House - Last Filed: 05/05/17 18:05> Subjective - Date & Time of Evaluation Date of Evaluation: 05/05/17 Time of Evaluation: 16:27 - Subjective Subjective: Progress Note for Dr. Arriaza Patient seen and examined at bedside. No acute events overnight. Patient states she is taking her eliquis. Patient does not demonstrate a good understanding of her glucose control. Patient states her doctor at home referred her to a piling cutter already, but it was explained to the patient that it may be helpful to hear from different sources. Patient admits to chest pain after walking from nurses station to room. Patient admits to shortness of breath after long distances. Patient denies fever, chills , diarrhea, constipation. Patient requests room change as well as clarification of the CTA results. Results were explained. Patient was told nursing staff would be able to handle her location change if possible. Objective - Vital Signs/Intake and Output Vital Signs (last 24 hours): Temp Pulse Resp BP Pulse Ox 97.8 F 62 20 104/67 97 05/05/17 15:42 05/05/17 15:42 05/05/17 15:42 05/05/17 15:42 05/05/17 15:42 Intake and Output: 05/05/17 05/05/17 06:59 18:59 Intake Total 240 Balance 240 - Medications Medications: Current Medications Albuterol Sulfate (Albuterol 0.083% Inhal Audra (2.5 Mg/3 Ml) Ud) 2.5 mg IH RQ6 PRN PRN Reason: Shortness of Breath Apixaban (Eliquis) 5 mg PO BID [facility] Last Admin: 05/05/17 11:02 Dose: 5 mg Digoxin (Lanoxin) 0.125 mg PO DAILY@1800 [facility] Diltiazem HCl (Cardizem) 90 mg PO QID [facility] Last Admin: 05/05/17 15:08 Dose: 90 mg Famotidine (Pepcid) 20 mg PO BID [facility] Last Admin: 05/05/17 11:02 Dose: 20 mg Hydrochlorothiazide (Hydrodiuril) 25 mg PO DAILY [facility] Last Admin: 05/05/17 11:01 Dose: 25 mg Losartan Potassium (Cozaar) 100 mg PO DAILY [facility] Last Admin: 05/05/17 11:01 Dose: 100 mg Montelukast Sodium (Singulair) 10 mg PO DAILY [facility] Last Admin: 05/05/17 11:02 Dose: 10 mg Rosuvastatin Calcium (Crestor) 2.5 mg PO HS [facility] Last Admin: 05/04/17 23:29 Dose: 2.5 mg Fluticasone/Salmeterol (Advair Diskus 500/50) 1 puff IH RQ12 [facility] - Labs Labs: 05/05/17 11:35 05/05/17 11:35 - Constitutional Appears: Non-toxic - Head Exam Head Exam: NORMAL INSPECTION - Eye Exam Eye Exam: EOMI, Normal appearance - ENT Exam ENT Exam: Mucous Membranes Moist - Neck Exam Neck Exam: Full ROM - Respiratory Exam Respiratory Exam: NORMAL BREATHING PATTERN. absent: Accessory Muscle Use, Respiratory Distress - Cardiovascular Exam Cardiovascular Exam: REGULAR RHYTHM, +S1, +S2. absent: Bradycardia, Tachycardia - GI/Abdominal Exam GI & Abdominal Exam: Soft, Normal Bowel Sounds. absent: Tenderness - Exam Exam: NORMAL INSPECTION - Extremities Exam Extremities Exam: Full ROM, Normal Inspection. absent: Pedal Edema - Back Exam Back Exam: Full ROM, NORMAL INSPECTION - Neurological Exam Neurological Exam: Awake, Normal Gait, Oriented x3 - Psychiatric Exam Psychiatric exam: Normal Affect, Normal Mood - Skin Skin Exam: Dry, Intact, Normal Color, Warm Assessment and Plan - Assessment and Plan (Free Text) Assessment: Dr. Marcelino PMD [address] [facility] [place] Attendant: Dr. García [phone] Atrial Fibrillation RVR Cardiology Consult: Dr. Chung MEHRAN neg x 3 TSH 0.57 CHADS: 2 (HTN, CHF) CHADSVasc: 3 (CHF, Female, HTN) EF <47% BNP 2160 HAS-BLED score: 0 points, low risk for major bleeding Cardizem 60mg POQID, increased to 90 mg POQID 05/05 0.125mg PO QD Digoxin 05/05 Cozaar 100mg POQD Cardiology Consult: Dr. Chung 05/[address] Chung: Patient to be discharged if Heart rate is <110, Cardizem 90 mg POQID, Digoxin 0.125 mg POQD F/u with Dr. García [phone] Hypertriglyceridemia, Hypercholesterolemia, Hyperlipidemia Triglycerides 201 Cholesterol 255 LDL 176 HDL 67 Bpo Specialist referral ordered 05/04 Hx Asthma, SOB r/o Pneumonia 05/04 Pulmonology Consult: Dr. Sosa: cardiac eval suggested M. pneumoniae ab IgG S. pneumoniae ag Albuterol 2.5mg IH RQ6H PRN SOB Fluticasone/Salmeterol 50 Montelukast 10mg POQD Hx HTN Hydrochlorothiazide 25mg POQD Hx Pre-Diabetes Hgb A1c 6.3 Diabetic piling cutter referral ordered 05/04 Prophylaxis Pepcid 20mg POBID Lovenox 80mg SC Q12H, discontinued due to patient's refusal to get subcutaneous medication Eliquis 5mg POBID added 05/[address] Arsalan Sexton Eng, DO PGY1 <Randi Arriaza V - Last Filed: 05/05/17 18:50> Objective - Vital Signs/Intake and Output Vital Signs (last 24 hours): Temp Pulse Resp BP Pulse Ox 97.8 F 62 20 104/67 97 05/05/17 15:42 05/05/17 15:42 05/05/17 15:42 05/05/17 15:42 05/05/17 15:42 Intake and Output: 05/05/17 05/05/17 06:59 18:59 Intake Total 240 Balance 240 - Medications Medications: Current Medications Albuterol Sulfate (Albuterol 0.083% Inhal Audra (2.5 Mg/3 Ml) Ud) 2.5 mg IH RQ6 PRN PRN Reason: Shortness of Breath Apixaban (Eliquis) 5 mg PO BID [facility] Last Admin: 05/05/17 18:27 Dose: 5 mg Digoxin (Lanoxin) 0.125 mg PO DAILY@1800 [facility] Last Admin: 05/05/17 18:25 Dose: 0.125 mg Diltiazem HCl (Cardizem) 90 mg PO QID [facility] Last Admin: 05/05/17 18:28 Dose: Not Given Famotidine (Pepcid) 20 mg PO BID [facility] Last Admin: 05/05/17 18:25 Dose: 20 mg Hydrochlorothiazide (Hydrodiuril) 25 mg PO DAILY [facility] Last Admin: 05/05/17 11:01 Dose: 25 mg Losartan Potassium (Cozaar) 100 mg PO DAILY [facility] Last Admin: 05/05/17 11:01 Dose: 100 mg Montelukast Sodium (Singulair) 10 mg PO DAILY [facility] Last Admin: 05/05/17 11:02 Dose: 10 mg Rosuvastatin Calcium (Crestor) 2.5 mg PO HS [facility] Last Admin: 05/04/17 23:29 Dose: 2.5 mg Fluticasone/Salmeterol (Advair Diskus 500/50) 1 puff IH RQ12 [facility] - Labs Labs: 05/05/17 11:35 05/05/17 11:35 Attending/Attestation - Attestation I have personally seen and examined this patient.: Yes I have fully participated in the care of the patient.: Yes I have reviewed all pertinent clinical information, including history, physical exam and plan: Yes Notes (Text): Patient seen, examined, and case discussed with bedside. Patient's heart rate uncontrolled; HR: 120s on telemetry; advanced Cardizem to 90mg PO QID and start Digoxin 0.125mg PO daily. Patient's IV line over left hand out because it was swollen; discussed with nursing and patient is amenable to have IV insertion back in. Discussed with cardiology, will monitor the patient and see if heart rate improves with current regimen Discussed with pulmonary, patient is stable from his standpoint. Patient does not have PE Assessment/Plan 1) New Diagnosed Atrial Fibrillation Atrial Fibrillation RVR * Cardiology Consult: Dr. Chung on board-->covering Dr. 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) * Patient has completed myocardial stress test recently which is normal; report available in the EMR * MEHRAN neg x 3 * f/u TSH-->within normal limits * CHADSVasc: 3 (suspected chf, hypertension) * HAS-BLED score: 0 points * Eliquis 5mg PO bid * Cardizem 90mg PO QID * Digoxin 0.125mg PO daily * UDS: negative * CT Chest r/o PE: PE ruled out * monitor on telemetry 2) Hypertensive Cardiomyopathy Systolic Congestive Heart Failure * Heart appears enlarged on chest xray * elevated probnp * Echocardiogram (05/03/17): left ventricle systolic function is mildly impaired , ejection fraction: 45-50%, hypertensive heart disease, no aortic regurgitation is present, mitral regurgitation, trace to mild tricupsid regurgitation * hold beta-dayana secondary to se: bronchospasm; * patient takes aspirin outpatient, on Arb, on calcium channel dayana, and not currently on statin until lipid panel result * Lipid panel: TG 201, cholestrol: 255, LDL: 176, HDL; 67 3) Hx of Asthma, controlled * Pulmonology Consult: Dr. Sosa; patient does not have a private athletic monitor * Ordered for M. pneumoniae ab IgG, S. pneumoniae ag Home medications: * Albuterol 2.5mg IH RQ6H PRN SOB * Advair 250/50 1 puff inhaled Q 12h * Montelukast 10mg POQDaily 4) Hx of HTN * Hydrochlorothiazide 25mg POQDaily and Valsartan-->switched to Cozaar 100mg PO daily during hospitalization 5) Hx of Impaired glucose tolerance * Hgb A1c: 6.3 * Accuchecks QAC and HS * Start Crestor 5mg POqHS 6) Dyslipidemia * Lipid panel: TG 201, cholestrol: 255, LDL: 176, HDL; 67 * Start Crestor 5mg POqHS 7) Elevated d-dimer * Ct Chest PE protocol-->negative for PE * Will order venous doppler low suspicion for DVT-->pending * Well's Criteria: 1.5 (heart rate >100)-->low risk * PERC: 2 (age and hr >100) 8) Prophylaxis * Pepcid 20mg POBID * Eliquis 5mg PO bid * PMD: Contreras * Cardiology: Noy
--- NOTE | 2017-05-05 16:54 | CP.PCM.PN ---
Subjective - Date & Time of Evaluation Date of Evaluation: 05/05/17 Time of Evaluation: 11:00 - Subjective Subjective: The patient seen and examined. Complaining of palpitation and some chest discomfort Denies shortness of breath, denies cough, denies fever chills Objective - Vital Signs/Intake and Output Vital Signs (last 24 hours): Temp Pulse Resp BP Pulse Ox 97.8 F 62 20 104/67 97 05/05/17 15:42 05/05/17 15:42 05/05/17 15:42 05/05/17 15:42 05/05/17 15:42 Intake and Output: 05/05/17 05/05/17 06:59 18:59 Intake Total 240 Balance 240 - Medications Medications: Current Medications Albuterol Sulfate (Albuterol 0.083% Inhal Audra (2.5 Mg/3 Ml) Ud) 2.5 mg IH RQ6 PRN PRN Reason: Shortness of Breath Apixaban (Eliquis) 5 mg PO BID [facility] Last Admin: 05/05/17 11:02 Dose: 5 mg Digoxin (Lanoxin) 0.125 mg PO DAILY@1800 [facility] Diltiazem HCl (Cardizem) 90 mg PO QID [facility] Last Admin: 05/05/17 15:08 Dose: 90 mg Famotidine (Pepcid) 20 mg PO BID [facility] Last Admin: 05/05/17 11:02 Dose: 20 mg Hydrochlorothiazide (Hydrodiuril) 25 mg PO DAILY [facility] Last Admin: 05/05/17 11:01 Dose: 25 mg Losartan Potassium (Cozaar) 100 mg PO DAILY [facility] Last Admin: 05/05/17 11:01 Dose: 100 mg Montelukast Sodium (Singulair) 10 mg PO DAILY [facility] Last Admin: 05/05/17 11:02 Dose: 10 mg Rosuvastatin Calcium (Crestor) 2.5 mg PO HS [facility] Last Admin: 05/04/17 23:29 Dose: 2.5 mg Fluticasone/Salmeterol (Advair Diskus 500/50) 1 puff IH RQ12 [facility] - Labs Labs: 05/05/17 11:35 05/05/17 11:35 - Head Exam Head Exam: ATRAUMATIC, NORMOCEPHALIC - Eye Exam Eye Exam: Normal appearance - ENT Exam ENT Exam: Mucous Membranes Moist - Neck Exam Neck Exam: Normal Inspection - Respiratory Exam Respiratory Exam: Clear to Ausculation Bilateral - Cardiovascular Exam Cardiovascular Exam: Tachycardia, Irregular Rhythm - GI/Abdominal Exam GI & Abdominal Exam: Normal Bowel Sounds - Extremities Exam Extremities Exam: Normal Inspection - Neurological Exam Neurological Exam: Alert, Oriented x3 Assessment and Plan (1) Asthma exacerbation Assessment & Plan: continue nebulizer treatment and steroids Continue treatment as per cardiology for atrial fibrillation Will need sleep study as outpatient On anticoagulation Status: Acute (2) Atrial fibrillation Status: Acute
[2017-05-05] MEDS ORDERED: Digoxin 125 mcg (0.125 mg) Tab PO SCH (18:00)
[2017-05-05 18:25] VITALS: PULSE 95
--- NOTE | 2017-05-05 22:52 | CP.PCM.PN ---
Subjective - Date & Time of Evaluation Date of Evaluation: 05/05/17 Time of Evaluation: 18:05 - Subjective Subjective: Patient with no cardiac events Review of Systems - Constitutional Constitutional: absent: Excessive Sweating, Fever, Headache - EENT Eyes: absent: Blurred Vision, Change in Vision Nose/Mouth/Throat: absent: Nasal Congestion, Nasal Discharge - Cardiovascular Cardiovascular: Chest Pain, Chest Pain at Rest, Dyspnea. absent: Pedal Edema - Respiratory Respiratory: Dyspnea, Dyspnea on Exertion - Gastrointestinal Gastrointestinal: absent: Nausea, Vomiting - Musculoskeletal Musculoskeletal: absent: Back Pain, Neck Pain - Integumentary Integumentary: absent: Dry Skin, Wounds - Neurological Neurological: absent: Tingling, Weakness - Hematologic/Lymphatic Hematologic: absent: Easy Bleeding, Easy Bruising Physical Exam - Constitutional Appears: Non-toxic, No Acute Distress - Head Exam Head Exam: ATRAUMATIC, NORMAL INSPECTION, NORMOCEPHALIC - Eye Exam Eye Exam: EOMI, Normal appearance, PERRL Pupil Exam: NORMAL ACCOMODATION - ENT Exam ENT Exam: Mucous Membranes Moist - Neck Exam Neck exam: Positive for: Full Rom - Respiratory Exam Respiratory Exam: Clear to Auscultation Bilateral, NORMAL BREATHING PATTERN. absent: Wheezes - Cardiovascular Exam Cardiovascular Exam: Irregular Rhythm, +S1, +S2. absent: JVD - GI/Abdominal Exam GI & Abdominal Exam: Normal Bowel Sounds, Soft - Extremities Exam Extremities exam: Positive for: full ROM - Back Exam Back exam: FULL ROM - Neurological Exam Neurological exam: Alert, Oriented x3 - Psychiatric Exam Psychiatric exam: Normal Affect, Normal Mood - Skin Skin Exam: Dry, Intact, Normal Color, Warm Objective - Vital Signs/Intake and Output Vital Signs (last 24 hours): Temp Pulse Resp BP Pulse Ox 97.8 F 91 H 20 133/94 H 97 05/05/17 15:42 05/05/17 21:12 05/05/17 15:42 05/05/17 21:12 05/05/17 15:42 - Medications Medications: Current Medications Albuterol Sulfate (Albuterol 0.083% Inhal Audra (2.5 Mg/3 Ml) Ud) 2.5 mg IH RQ6 PRN PRN Reason: Shortness of Breath Apixaban (Eliquis) 5 mg PO BID [facility] Last Admin: 05/05/17 18:27 Dose: 5 mg Digoxin (Lanoxin) 0.125 mg PO DAILY@1800 [facility] Last Admin: 05/05/17 18:25 Dose: 0.125 mg Diltiazem HCl (Cardizem) 90 mg PO QID [facility] Last Admin: 05/05/17 21:07 Dose: 90 mg Famotidine (Pepcid) 20 mg PO BID [facility] Last Admin: 05/05/17 18:25 Dose: 20 mg Hydrochlorothiazide (Hydrodiuril) 25 mg PO DAILY [facility] Last Admin: 05/05/17 11:01 Dose: 25 mg Losartan Potassium (Cozaar) 100 mg PO DAILY [facility] Last Admin: 05/05/17 11:01 Dose: 100 mg Montelukast Sodium (Singulair) 10 mg PO DAILY [facility] Last Admin: 05/05/17 11:02 Dose: 10 mg Rosuvastatin Calcium (Crestor) 5 mg PO HS [facility] Last Admin: 05/05/17 21:09 Dose: 5 mg Fluticasone/Salmeterol (Advair Diskus 500/50) 1 puff IH RQ12 [facility] - Labs Labs: 05/05/17 11:35 05/05/17 11:35 Assessment and Plan - Assessment and Plan (Free Text) Assessment: Dr. Marcelino PMD 550 [facility] Floor Steward/Stewardess: Dr. Berumen Atrial Fibrillation RVR MEHRAN neg x 3 TSH 0.57 CHADS: 2 (HTN, CHF) CHADSVasc: 3 (CHF, Female, HTN) EF <47% BNP 2160 HAS-BLED score: 0 points, low risk for major bleeding Cardizem 90 QID 0.125mg PO Digoxin ONCE Cozaar 100mg POQD Eliquis 5mg po bid Hypertriglyceridemia, Hypercholesterolemia, Hyperlipidemia Triglycerides 201 Cholesterol 255 LDL 176 HDL 67 Police Liaison Officer referral ordered 05/04 Hx Asthma, SOB r/o Pneumonia 05/04 Pulmonology Consult: Dr. Sosa: cardiac eval suggested M. pneumoniae ab IgG S. pneumoniae ag Albuterol 2.5mg IH RQ6H PRN SOB Fluticasone/Salmeterol 50 Montelukast 10mg POQD Hx HTN Hydrochlorothiazide 25mg POQD Hx Pre-Diabetes Hgb A1c 6.3 Diabetic pediatric cns referral ordered 05/04 Prophylaxis Pepcid 20mg POBID Eliquis 5mg POBID added 05/04
[2017-05-06 07:17] LABS: BASO # 0.1 K/uL (0.0-0.2); BASO % 0.4 % (0.0-2.0); EOS # 0.2 K/uL (0.0-0.7); EOS % 1.3 % (0.0-4.0); HEMATOCRIT 43.9 % (34.0-47.0); LYMPH # 3.3 K/uL (1.0-4.3); LYMPH % 23.5 % (20.0-40.0); MEAN CELL VOLUME 86.2 fL (81.0-99.0); MEAN CORPUSCULAR HEMOGLOBIN 28.2 pg (27.0-31.0); MEAN CORPUSCULAR HGB CONC 32.8 g/dL (33.0-37.0); MEAN PLATELET VOLUME 9.5 fL (7.2-11.7); MONO # 1.3 K/uL (0.0-0.8); MONO % 9.2 % (0.0-10.0); NRBC % 0.1 % (0.0-2.0); WHITE BLOOD COUNT 14.1 K/uL (4.8-10.8)
--- NOTE | 2017-05-06 09:00 | CP.PCM.PN ---
Subjective - Date & Time of Evaluation Date of Evaluation: 05/06/17 Time of Evaluation: 08:05 - Subjective Subjective: Cardiology Progress Note- Dr. Chung's service Pt seen and examined in no acute distress. Patient states that she feels much better. She states that her medication was increased yesterday which may have played a role in her improved symptoms. She had a mild headache last night which has resolved. She denies chest pain, shortness of breath, palpitations, nausea, vomiting, diarrhea or constipation at this time. Objective - Vital Signs/Intake and Output Vital Signs (last 24 hours): Temp Pulse Resp BP Pulse Ox 98.3 F 72 18 131/86 97 05/06/17 07:20 05/06/17 07:20 05/06/17 07:20 05/06/17 07:20 05/06/17 07:20 - Medications Medications: Current Medications Albuterol Sulfate (Albuterol 0.083% Inhal Audra (2.5 Mg/3 Ml) Ud) 2.5 mg IH RQ6 PRN PRN Reason: Shortness of Breath Apixaban (Eliquis) 5 mg PO BID [facility] Last Admin: 05/05/17 18:27 Dose: 5 mg Digoxin (Lanoxin) 0.125 mg PO DAILY@1800 [facility] Last Admin: 05/05/17 18:25 Dose: 0.125 mg Diltiazem HCl (Cardizem) 90 mg PO Q6H [facility] Last Admin: 05/06/17 04:38 Dose: 90 mg Famotidine (Pepcid) 20 mg PO BID [facility] Last Admin: 05/05/17 18:25 Dose: 20 mg Hydrochlorothiazide (Hydrodiuril) 25 mg PO DAILY [facility] Last Admin: 05/05/17 11:01 Dose: 25 mg Losartan Potassium (Cozaar) 100 mg PO DAILY [facility] Last Admin: 05/05/17 11:01 Dose: 100 mg Montelukast Sodium (Singulair) 10 mg PO DAILY [facility] Last Admin: 05/05/17 11:02 Dose: 10 mg Rosuvastatin Calcium (Crestor) 5 mg PO HS [facility] Last Admin: 05/05/17 21:09 Dose: 5 mg Fluticasone/Salmeterol (Advair Diskus 500/50) 1 puff IH RQ12 [facility] - Labs Labs: 05/06/17 07:07 05/05/17 11:35 - Constitutional Appears: Non-toxic, No Acute Distress, Other (large body habitus) - Head Exam Head Exam: ATRAUMATIC, NORMAL INSPECTION, NORMOCEPHALIC - Eye Exam Eye Exam: EOMI, Normal appearance, PERRL Pupil Exam: NORMAL ACCOMODATION - ENT Exam ENT Exam: Mucous Membranes Moist - Neck Exam Neck Exam: Full ROM - Respiratory Exam Respiratory Exam: NORMAL BREATHING PATTERN. absent: Wheezes - Cardiovascular Exam Cardiovascular Exam: Irregular Rhythm, +S1, +S2. absent: JVD - GI/Abdominal Exam GI & Abdominal Exam: Soft, Normal Bowel Sounds - Extremities Exam Extremities Exam: Full ROM, Normal Capillary Refill. absent: Pedal Edema - Neurological Exam Neurological Exam: Alert, Awake - Psychiatric Exam Psychiatric exam: Normal Affect, Normal Mood - Skin Skin Exam: Dry, Intact, Normal Color, Warm Assessment and Plan (1) Atrial fibrillation Status: Acute (2) Dyspnea Status: Acute (3) Hypertension Status: Chronic (4) Impaired glucose tolerance Status: Chronic (5) Hypercholesteremia Status: Chronic (6) Prophylactic measure Status: Acute - Assessment and Plan (Free Text) Assessment: (1) Atrial fibrillation Assessment and Plan: MEHRAN x3 negative Stable on Cardizem. Dosing adjusted to once daily upon discharge. [id number] score of 3 (CHF, Female, HTN). On Eliquis 5 mg PO BID On Telemetry Monitoring- atrial fibrillation ( not rate controlled) on Tele. Continue to monitor. May need to adjust medications accordingly for better rate control. Status: Acute (2) Dyspnea Assessment and Plan: Elevated D-Dimer CT of Chest- Cannot definitively rule out emboli and this patient given full dose anticoagulation of lovenox; however patient refused lovenox injections and thus this was switched to Eliquis. Albuterol, oxygen as needed BNP 2160 Echo: EF 45-50% with signs of hypertensive heart disease, mild mitral regurg, tricuspid regurg at this time. Status: Acute (3) Hypertension Assessment and Plan: HCTZ 25 mg PO daily, Cozaar daily Cont to monitor Status: Chronic (4) Impaired glucose tolerance Assessment and Plan: A1c 6.3 Discontinued accuchecks as patient is not receiving insulin or anti- hyperglycemic medications at this time. Diabetic Counseling as well as diet and exercise modifications Cont to monitor Status: Chronic (5) Hypercholesteremia Assessment and Plan: Elevated Lipid Panel Diet and exercise counseling Crestor 5 mg PO HS Status: Chronic (6) Prophylactic measure Assessment and Plan: Eliquis 5 mg PO BID Pepcid 20 mg PO BID Status: Acute Patient is stable from a cardiology standpoint for discharge home. Patient to begin taking Cardizem and Eliquis upon discharge. No need for continued digoxin since patient is rate controlled. Patient to follow up with her Paramedic Supervisor within one week of discharge from hospital.
[2017-05-06 09:31] LABS: CHLORIDE 101 mmol/L (98-107)
[2017-05-06 09:32] LABS: SODIUM 132 mmol/L (132-148)
[2017-05-06 09:34] LABS: AST/SGOT 45 U/L (14-36); BILIRUBIN,TOTAL 1.4 mg/dL (0.2-1.3); CARBON DIOXIDE 20 mmol/L (22-30); GFR AFRICAN-AMERICAN > 60
[2017-05-06 09:35] LABS: ALB/GLOB RATIO 1.1 (1.0-2.1); ALKALINE PHOSPHATASE 76 U/L (38-126); ALT/SGPT 28 U/L (9-52); BLOOD UREA NITROGEN 29 mg/dL (7-17); CALCIUM 9.3 mg/dl (8.6-10.4); GLUCOSE,RANDOM 196 mg/dL (65-105); TOTAL PROTEIN 8.3 g/dL (6.3-8.3)
[2017-05-06 09:40] LABS: POTASSIUM 5.7 mmol/L (3.6-5.2)
--- NOTE | 2017-05-06 14:39 | VASCLAB ---
PROCEDURE: Lower Extremity Venous Duplex Exam. HISTORY: leg edema, r/o dvt PRIORS: None. TECHNIQUE: Bilateral common femoral, femoral, popliteal and posterior tibial, peroneal and great saphenous veins were evaluated. Flow was assessed with color Doppler, compressibility, assessment of phasic flow and augmentation response. Report prepared by CHARBEL Gonzalez FINDINGS: RIGHT: 1. Common Femoral Vein: 1.1. Compressibility - Fully compressible: Thrombus - None : Flow - Phasic: Augmentation -Normal: Reflux - None. 2. Femoral Vein: 2.1. Compressibility - Fully compressible: Thrombus - None : Flow - Phasic: Augmentation -Normal: Reflux - None. 3. Popliteal Vein: 3.1. Compressibility - Fully compressible: Thrombus - None : Flow - Phasic: Augmentation -Normal: Reflux - None. 4. Posterior Tibial Vein: 4.1. Compressibility - Fully compressible: Thrombus - None: Flow - Phasic: Augmentation -Normal: Reflux - None. 5. Peroneal Vein: 5.1. Compressibility - Fully compressible: Thrombus - None: Flow - Phasic: Augmentation -Normal: Reflux - None. 6. Great Saphenous Vein: 6.1. Compressibility - Fully compressible: Thrombus - None: Flow - Phasic: Augmentation - Normal: Reflux - None. LEFT: 1. Common Femoral Vein: 1.1. Compressibility - Fully compressible: Thrombus - None: Flow - Phasic: Augmentation -Normal: Reflux - None. 2. Femoral Vein: 2.1. Compressibility - Fully compressible: Thrombus - None: Flow - Phasic: Augmentation -Normal: Reflux - None. 3. Popliteal Vein: 3.1. Compressibility - Fully compressible: Thrombus - None : Flow - Phasic: Augmentation -Normal: Reflux - None. 4. Posterior Tibial Vein: 4.1. Compressibility - Fully compressible: Thrombus - None: Flow - Phasic: Augmentation -Normal: Reflux - None. 5. Peroneal Vein: 5.1. Compressibility - Fully compressible: Thrombus - None: Flow - Phasic: Augmentation -Normal: Reflux - None. 6. Great Saphenous Vein: 6.1. Compressibility - Fully compressible: Thrombus - None: Flow - Phasic: Augmentation - Normal: Reflux - None. OTHER FINDINGS: Right: None significant. Left: None significant. IMPRESSION: Right: No evidence of deep or superficial vein thrombosis of the right lower extremity. Normal valve function noted of the right side. Left: No evidence of deep or superficial vein thrombosis of the left lower extremity. Normal valve function noted of the left side.
[2017-05-06 15:25] VITALS: PULSE 83
[2017-05-06 16:02] VITALS: BP 137/92; RESP 20; TEMP 97.9; O2SAT 98
--- NOTE | 2017-05-06 22:13 | CP.PCM.DIS ---
Provider - Provider Date of Admission: 05/03/17 15:32 Attending physician: Randi Arriaza DO Primary care physician: Dr. Chiarez Consults: Dr. Sheldon Sosa Time Spent in preparation of Discharge (in minutes): 31 Diagnosis - Discharge Diagnosis (1) Atrial fibrillation with rapid ventricular response Status: Acute (2) Impaired glucose tolerance Status: Chronic (3) Asthma Status: Chronic (4) Hypercholesteremia Status: Chronic (5) Hypertension Status: Chronic (6) Impaired glucose tolerance Status: Chronic Hospital Course - Lab Results Lab Results: Micro Results 05/03/17 16:25 Blood Blood Culture - Preliminary NO GROWTH AFTER 3 DAYS 05/03/17 16:00 Blood Blood Culture - Preliminary NO GROWTH AFTER 3 DAYS Most Recent Lab Values WBC 14.1 K/uL (4.8-10.8) H 05/06/17 07:07 RBC 5.09 Mil/uL (3.80-5.20) 05/06/17 07:07 Hgb 14.4 g/dL (11.0-16.0) 05/06/17 07:07 Hct 43.9 % (34.0-47.0) 05/06/17 07:07 MCV 86.2 fL (81.0-99.0) 05/06/17 07:07 MCH 28.2 pg (27.0-31.0) 05/06/17 07:07 MCHC 32.8 g/dL (33.0-37.0) L 05/06/17 07:07 RDW 14.0 % (11.5-14.5) 05/06/17 07:07 Plt Count 289 K/uL (130-400) 05/06/17 07:07 MPV 9.5 fL (7.2-11.7) 05/06/17 07:07 Neut % (Auto) 65.6 % (50.0-75.0) 05/06/17 07:07 Lymph % (Auto) 23.5 % (20.0-40.0) 05/06/17 07:07 Assumption % (Auto) 9.2 % (0.0-10.0) 05/06/17 07:07 Eos % (Auto) 1.3 % (0.0-4.0) 05/06/17 07:07 Baso % (Auto) 0.4 % (0.0-2.0) 05/06/17 07:07 Neut # 9.3 K/uL (1.8-7.0) H 05/06/17 07:07 Lymph # 3.3 K/uL (1.0-4.3) 05/06/17 07:07 Assumption # 1.3 K/uL (0.0-0.8) H 05/06/17 07:07 Eos # 0.2 K/uL (0.0-0.7) 05/06/17 07:07 Baso # 0.1 K/uL (0.0-0.2) 05/06/17 07:07 Neutrophils % (Manual) 76 % (50-75) H 05/04/17 08:21 Band Neutrophils % 1 % (0-2) 05/04/17 08:21 Lymphocytes % (Manual) 12 % (20-40) L 05/04/17 08:21 Reactive Lymphs % 1 % (0-0) H 05/04/17 08:21 Monocytes % (Manual) 10 % (0-10) 05/04/17 08:21 Toxic Granulation Present 05/04/17 08:21 Platelet Estimate Normal (NORMAL) 05/04/17 08:21 RBC Morphology Normal 05/04/17 08:21 D-Dimer, Quantitative 286 ng/mlDDU (0-243) H 05/03/17 12:18 Sodium 132 mmol/L (132-148) 05/06/17 09:09 Potassium 5.7 mmol/L (3.6-5.2) H 05/06/17 09:09 Chloride 101 mmol/L (98-107) 05/06/17 09:09 Carbon Dioxide 20 mmol/L (22-30) L 05/06/17 09:09 Anion Gap 17 (10-20) 05/06/17 09:09 BUN 29 mg/dL (7-17) H 05/06/17 09:09 Creatinine 0.5 mg/dL (0.7-1.2) L 05/06/17 09:09 Est GFR ( Amer) > 60 05/06/17 09:09 Est GFR (Non-Af Amer) > 60 05/06/17 09:09 POC Glucose (mg/dL) 124 mg/dL (65-110) H 05/05/17 11:15 Random Glucose 196 mg/dL (65-105) H 05/06/17 09:09 Hemoglobin A1c 6.3 % (4.2-6.5) 05/04/17 08:21 Calcium 9.3 mg/dl (8.6-10.4) 05/06/17 09:09 Total Bilirubin 1.4 mg/dL (0.2-1.3) H 05/06/17 09:09 AST 45 U/L (14-36) H D 05/06/17 09:09 ALT 28 U/L (9-52) 05/06/17 09:09 Alkaline Phosphatase 76 U/L (38-126) 05/06/17 09:09 Total Creatine Kinase 39 U/L (30-135) 05/06/17 00:53 CK-MB (Mass) 0.49 ng/mL (0.0-3.38) 05/06/17 00:53 Troponin I < 0.0120 ng/mL (0.00-0.120) 05/03/17 11:49 Troponin I, Quant 0.0120 ng/mL (0.00-0.120) 05/06/17 00:53 NT-Pro-B Natriuret Pep 2160 pg/mL (0-900) H 05/03/17 11:49 Total Protein 8.3 g/dL (6.3-8.3) 05/06/17 09:09 Albumin 4.3 g/dL (3.5-5.0) 05/06/17 09:09 Globulin 4.0 gm/dL (2.2-3.9) H 05/06/17 09:09 Albumin/Globulin Ratio 1.1 (1.0-2.1) 05/06/17 09:09 Triglycerides 201 mg/dL (0-149) H D 05/04/17 08:21 Cholesterol 255 mg/dL (0-199) H 05/04/17 08:21 LDL Cholesterol Direct 176 mg/dL (0-129) H 05/04/17 08:21 HDL Cholesterol 67 mg/dL (30-70) 05/04/17 08:21 TSH 3rd Generation 0.57 mIU/L (0.46-4.68) 05/03/17 19:31 Urine HCG, Qual Negative (NEGATIVE) 05/03/17 23:59 Urine Opiates Screen Negative (NEGATIVE) 05/03/17 13:44 Urine Methadone Screen Negative (NEGATIVE) 05/03/17 13:44 Ur Barbiturates Screen Negative (NEGATIVE) 05/03/17 13:44 Ur Phencyclidine Scrn Negative (NEGATIVE) 05/03/17 13:44 Ur Amphetamines Screen Negative (NEGATIVE) 05/03/17 13:44 U Benzodiazepines Scrn Negative (NEGATIVE) 05/03/17 13:44 U Oth Cocaine Metabols Negative (NEGATIVE) 05/03/17 13:44 U Cannabinoids Screen Negative (NEGATIVE) 05/03/17 13:44 Ur L.pneumophila Ag Negative (NEGATIVE) 05/03/17 06:20 M.pneumoniae IgG Titer 4.38 (<=0.90) H 05/03/17 16:06 - Hospital Course Hospital Course: Per H&P, "51F with PMH of asthma and HTN, presents to the ED with SOB that started yesterday that became worse today. Patient went to see PMD yesterday and was told it was an asthma exacerbation, medications were changed and was sent for CXR today. CXR was done and Patient called PMD and stated that SOB was worse today and was told by PMD to come to the ED. Patient admits to midsternal chest pain that comes and goes for the past two days. Patient states this is the first time. Pt states that she has been having trouble walking a short distance for over a year and sleeps with four pillows and "three mini pillows" at night. Patient also complains of headache, nausea, cough, vomiting, and subjective fever. Patient admits to leg swelling that has been getting worse over the past week. Patient denies palpitations, diaphoresis, headache, dysuria , hematuria, abdominal pain, diarrhea, weight changes, or changes in vision. 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 Patient stable for the telemetry floor. Cardiology and pulmonary consulted on the case. Patient admitted for new onset atrial fibrillation, and in Rapid Ventricular Response. Patient's arrhythmia controlled with PO Cardizem. Completed echocardiogram during admission.Patient completed CT angio; PE ruled out and venous dopplers negative for DVT. TSH is normal. Per cardiology, patient stable for discharge and follow-up with her search planner. Per pulmonary, asthma is controlled but need to follow-up for sleep study. Day of discharge, patient denies acute complaints. Discharge instructions explained to the patient at bedside. Patient verbalized understanding and agrees. Discharge instructions: Patient is medically stable for discharge. Per cardiology, patient is stable for discharge. Patient recommended to follow-up with Dr. Villafuerte, patient's search planner in a week for newly diagnosed atrial fibrillation and is rate controlled upon discharge. Patient started on Cardzidem CD 300mg PO once day and Eliquis 5mg PO bid Patient recommended to follow-up with Dr. Sosa [facility], in 2 weeks for outpatient sleep study and asthma management. Patient recommended to make dietary and lifestyle modifications to improve [id number] to prevent over diabetes. Patient educated to limit exposure to second hand smoke given her history of asthma. New prescriptions: 1) Cardizem CD 300mg once day (start tomorrow) 2) Eliquis 5mg one tab twice a day (explained as blood thinner to reduce stroke risk in irregular heart rhythm); if patient sees any signs of bleeding, recommended to stop medicine and go to the emergency room immediately for evaluation. 3) Crestor 5mg once a night (cholestrol pill). Patient has pronounced muscle aches and pains while on medication. stop medication and be seen by pmd for other alternatives. Old prescription: stop HCTZ This is a summary of patient's hospitalization. Please see EMR for further details Discharge diagnoses: 1) New Diagnosed Atrial Fibrillation Atrial Fibrillation RVR-->stable * Cardiology Consult: Dr. Chung on board-->covering Dr. Villafuerte (patient's search planner) * Patient has completed myocardial stress test recently which is normal; report available in the EMR * MEHRAN neg x 3 * f/u TSH-->within normal limits * CHADSVasc: 3 (suspected chf, hypertension) * HAS-BLED score: 0 points * Eliquis 5mg PO bid * Cardizem 90mg PO QID--->Cardizem CD 300mg PO daily upon discharge * Digoxin 0.125mg PO daily-->patient does not need per cardiology * UDS: negative * CT Chest r/o PE: PE ruled out * monitor on telemetry 2) Hypertensive Cardiomyopathy Systolic Congestive Heart Failure * Heart appears enlarged on chest xray * elevated probnp * Echocardiogram (05/03/17): left ventricle systolic function is mildly impaired , ejection fraction: 45-50%, hypertensive heart disease, no aortic regurgitation is present, mitral regurgitation, trace to mild tricupsid regurgitation * hold beta-natanael secondary to se: bronchospasm; * patient takes aspirin outpatient, on Arb, on calcium channel natanael, and not currently on statin until lipid panel result * Lipid panel: TG 201, cholestrol: 255, LDL: 176, HDL; 67 * Upon discharge, * Aspirin 81mg PO daily * Cardizem CD 300mg PO daily * Resume home medication:Valsartan-HCTZ * Crestor 5mg PO QHS 3) Hx of Asthma, controlled * Pulmnology Consult: Dr. Sosa; patient does not have a private detacker * Ordered for M. pneumoniae ab IgG (elevated) S. pneumoniae ag Resume Home medications: * Albuterol 2.5mg IH RQ6H PRN SOB * Advair 250/50 1 puff inhaled Q 12h * Montelukast 10mg POQDaily 4) Hx of HTN * Hydrochlorothiazide 25mg POQDaily and Valsartan-->switched to Cozaar 100mg PO daily during hospitalization * Resume home medications 5) Hx of Impaired glucose tolerance * Hgb A1c: 6.3 * Accuchecks QAC and HS * Upon discharge, patient provided prescription for Crestor 5mg POqHS 6) Dyslipidemia * Lipid panel: TG 201, cholestrol: 255, LDL: 176, HDL; 67 * Start Crestor 5mg POqHS * Upon discharge, patient provided prescription for Crestor 5mg POqHS 7) Elevated d-dimer * Ct Chest PE protocol-->negative for PE * Will order venous doppler low suspicion for DVT-->negative * Well's Criteria: 1.5 (heart rate >100)-->low risk * PERC: 2 (age and hr >100) 8) Prophylaxis * Pepcid 20mg POBID * Upon discharge, patient provided prescription for Eliquis 5mg PO bid PMD: Contreras-->follow-up upon hospitalization * F/u Cardiology: Noy for rate controlled atrial fibrillation * F/u Pulm: Ian for outpatient sleep study - Date & Time of H&P Date of H&P: 05/02/17 Time of H&P: 19:09 Discharge Exam - Head Exam Head Exam: ATRAUMATIC, NORMAL INSPECTION, NORMOCEPHALIC - Eye Exam Eye Exam: EOMI - ENT Exam ENT Exam: Mucous Membranes Moist - Respiratory Exam Respiratory Exam: Clear to PA & Lateral, NORMAL BREATHING PATTERN Additional comments: no rales, no rhonchi, no wheezing - Cardiovascular Exam Cardiovascular Exam: Irregular Rhythm, +S1, +S2 - GI/Abdominal Exam GI & Abdominal Exam: Normal Bowel Sounds, Soft Additional comments: nontender, nondistended, no guarding, no rebound, negative suprapubic tenderness , BS X4 - Extremities Exam Extremities exam: normal capillary refill, pedal pulses present Additional comments: mild swelling over right hand (where IV access was) Mild swelling over left hand (swelling resolving) - Neurological Exam Neurological exam: Alert, CN II-XII Intact, Oriented x3 - Psychiatric Exam Psychiatric exam: Normal Affect, Normal Mood - Skin Skin Exam: Dry, Intact, Normal Color, Warm Discharge Plan - Discharge Medications Prescriptions: Apixaban [Eliquis] 5 mg PO BID 30 Days tab diltiaZEM CD [Cardizem CD] 300 mg PO DAILY #30 cap Rosuvastatin Calcium [Crestor] 5 mg PO HS 30 Days tab - Follow Up Plan Condition: GUARDED Disposition: HOME/ ROUTINE Instructions: Diltiazem (By mouth), Rosuvastatin (By mouth), Apixaban (By mouth ), Heart Failure (DC), Atrial Fibrillation (DC), Heart Healthy Diet (DC), How to Check Your Blood Sugar (DC) Additional Instructions: Patient is medically stable for discharge. Patient recommended to follow-up with Dr. Villafuerte in a week for newly diagnosed atrial fibrillation. Patient started on Cardzidem 300mg PO once day and Eliquis 5mg PO bid. Patient recommended to follow-up with Dr. Sosa in 2 weeks for outpatient sleep study and asthma management. Patient recommended to make dietary and lifestyle modifications to improve [id number] to prevent over diabetes. New prescriptions: 1) Cardizem CD 300mg once day (start tomorrow) 2) Eliquis 5mg one tab twice a day (blood thinner to reduce stroke risk in irregular heart rhythm); if patient sees any signs of bleeding, recommended to stop medicine and go to the emergency room immediately for evaluation. 3) Crestor 5mg once a night (cholestrol pill). Patient has pronounced muscle aches and pains while on medication. stop medication and be seen by pmd. Referrals: Mykel Sosa MD [Staff Provider] - 2 Weeks (patient recommended to follow- up for outpatient sleep study) Sukh Chairez [Staff Provider] - 1 Week (f/u with PMD) Darinel Villafuerte MD [Staff Provider] - (f/u within 2 weeks; patient diagnosed with atrial fib during hospitalization.) Clinical Quality Measures - CQM - Heart Failure Ejection Fraction: 40 % or Greater Left Ventricular Function to be assessed after discharge: Yes SHAWNA Inhibitor Prescribed: No Contraindication/Reason for not providing: patient is on ARB Beta-Natanael Prescribed: None Contraindication/Reason for not providing: Patient is on Cardizem CD 300mg once day Angiotensin II Receptor Natanael Prescribed: Yes AnticoagulationTherapy for Atrial Fibrillation/Atrialflutter: Yes Aldosterone Antagonist Prescribed: No Contraindication/Reason for not providing: not clinically indicated Hydralazine Nitrate Prescribed: No Contraindication/Reason for not providing: not clinically indicated Implantable Cardioverter Defibrillator Therapy: No Contraindication/Reason for not providing: not clinically indicated Cardiac Resynchronization Therapy Prescribed: No Contraindication/Reason for not providing: not clinically indicated Will be discharged to: Home Follow Up Date (must be within 7 days from discharge): 05/13/17 Follow Up Time: 09:00 - Date & Time of Discharge Summary Date of Discharge Summary: 05/06/17
--- NOTE | 2017-05-08 18:25 | CARD ---
APPROVED REPORT EKG Measurement Heart [id number] <Conclusion> Atrial fibrillation with rapid ventricular response ST & T wave abnormality, consider lateral ischemia Abnormal ECG
== END 2017-05-06 16:45 | disposition home or self-care (01) | DRG 544 ==
LOC: C.ER 10:11 → C.9E 15:32 → C.6T 17:17
PROVIDERS: ADMIT Hospitalist; ATTEND Hospitalist
DX: I48.91 Unspecified atrial fibrillation (principal); I50.20 Unspecified systolic (congestive) heart failure; I11.0 Hypertensive heart disease with heart failure; I43 Cardiomyopathy in diseases classified elsewhere; J45.901 Unspecified asthma with (acute) exacerbation; E78.5 Hyperlipidemia, unspecified; R79.1 Abnormal coagulation profile; Z79.01 Long term (current) use of anticoagulants; R73.03 Prediabetes; Z68.36 Body mass index [BMI] 36.0-36.9, adult

== ENCOUNTER 2018-01-18 11:02 | Observation (INO) | payer MEDICAID ==
[2018-01-18 11:03] VITALS: PULSE 95
[2018-01-18 11:11] VITALS: BMI 35.4
[2018-01-18 11:32] LABS: BASO # 0.1 K/uL (0.0-0.2); BASO % 0.8 % (0.0-2.0); EOS # 0.3 K/uL (0.0-0.7); EOS % 2.4 % (0.0-4.0); HEMOGLOBIN 14.8 g/dL (11.0-16.0); LYMPH # 3.1 K/uL (1.0-4.3); LYMPH % 23.2 % (20.0-40.0); MEAN CELL VOLUME 84.2 fL (81.0-99.0); MEAN CORPUSCULAR HGB CONC 34.4 g/dL (33.0-37.0); MEAN PLATELET VOLUME 9.3 fL (7.2-11.7); MONO % 7.7 % (0.0-10.0); NEUT # 8.7 K/uL (1.8-7.0); NEUT % 65.9 % (50.0-75.0); NRBC % 0.1 % (0.0-2.0); RBC 5.12 Mil/uL (3.80-5.20); RED CELL DISTRIBUTION WIDTH 14.1 % (11.5-14.5); WHITE BLOOD COUNT 13.2 K/uL (4.8-10.8)
[2018-01-18 11:38] LABS: INR 1.3; PROTHROMBIN TIME 14.2 SECONDS (9.7-12.2)
[2018-01-18 11:45] LABS: ALB/GLOB RATIO 1.3 (1.0-2.1); ALBUMIN 4.5 g/dL (3.5-5.0); ALT/SGPT 37 U/L (9-52); AST/SGOT 24 U/L (14-36); BLOOD UREA NITROGEN 14 mg/dL (7-17); CALCIUM 9.6 mg/dl (8.6-10.4); GFR AFRICAN-AMERICAN > 60; GFR NON-AFRICAN AMERICAN > 60
[2018-01-18 11:56] LABS: B-TYPE NATRIURETIC PEPTIDE 296 pg/mL (0-900)
[2018-01-18] MEDS ORDERED: Metoprolol 1 mg/ml Inj IVP ONE ×2 (12:05→12:16)
--- NOTE | 2018-01-18 12:08 | C.PDOC ---
History Of Present Illness 52-year-old female, presents to the emergency department with complaints of low back pain x7 days. Patient states she was helping her son move, and attributes her symptoms to that. Pain is non radiating. Today, patient developed shortness of breath and palpitations, prompting visit. She denies any injury, fever, chills, bladder/bowel incontinence, chest pain, nausea/vomiting, or any other associated symptoms. No other complaints at this time. Time Seen by Provider: 01/18/18 11:16 Chief Complaint (Nursing): Chest Pain History Per: Patient History/Exam Limitations: no limitations Onset/Duration Of Symptoms: Days Current Symptoms Are (Timing): Still Present Severity: Moderate Past Medical History Reviewed: Historical Data, Nursing Documentation, Vital Signs Vital Signs: Last Vital Signs Temp 98.4 F 01/18/18 11:06 Pulse 98 H 01/18/18 12:53 Resp 20 01/18/18 12:53 BP 129/83 01/18/18 12:53 Pulse Ox 95 01/18/18 13:26 - Medical History PMH: Asthma, HTN, Kidney Stones ('92) Surgical History: Cholecystectomy Family History: States: No Known Family Hx - Social History Hx Alcohol Use: No Hx Substance Use: No - Immunization History Hx Tetanus Toxoid Vaccination: Yes Hx Influenza Vaccination: Yes Hx Pneumococcal Vaccination: Yes Review Of Systems Constitutional: Negative for: Fever, Chills Cardiovascular: Positive for: Palpitations. Negative for: Chest Pain Respiratory: Positive for: Shortness of Breath Gastrointestinal: Negative for: Nausea, Vomiting, Abdominal Pain Genitourinary: Negative for: Dysuria, Incontinence, Hematuria Musculoskeletal: Positive for: Back Pain Neurological: Negative for: Weakness, Numbness Physical Exam - Physical Exam Appears: Non-toxic, No Acute Distress Skin: Normal Color, Warm, Dry, No Rash Head: Atraumatic, Normacephalic Eye(s): bilateral: Normal Inspection Nose: Normal Oral Mucosa: Moist Lips: Normal Appearing Neck: Normal ROM Chest: Symmetrical Cardiovascular: Rhythm Irregular, No Murmur Respiratory: Normal Breath Sounds, No Accessory Muscle Use Gastrointestinal/Abdominal: Soft, No Tenderness, No Guarding, No Rebound Back: Paraspinal Tenderness (Lumbar), No Straight Leg Raising Extremity: Normal ROM, No Deformity, No Swelling Neurological/Psych: Oriented x3, Normal Speech ED Course And Treatment - Laboratory Results Result Diagrams: 01/18/18 11:25 01/18/18 11:25 ECG: Interpreted By Me, Viewed By Me Interpretation Of ECG: Rapid ventricular rate. Non-specific changes Rate From EC O2 Sat by Pulse Oximetry: 95 (RA) Pulse Ox Interpretation: Normal Medical Decision Making Medical Decision Making: Plan: * EKG * Bloodwork * Cardizem, Lopressor * UA * Reassess and Disposition Pt will be admitted to Dr Myles. Disposition Discussed With Dr.: Hannah Myles Doctor Will See Patient In The: Hospital Counseled Patient/Family Regarding: Studies Performed, Diagnosis - Disposition Disposition: HOSPITALIZED Disposition Time: 12:07 Condition: FAIR - Clinical Impression Clinical Impression: Low back pain, Atrial fibrillation with rapid ventricular response - Scribe Statement The provider has reviewed the documentation as recorded by the Scribe (Patrice Rider) All medical record entries made by the Scribe were at my direction and personally dictated by me. I have reviewed the chart and agree that the record accurately reflects my personal performance of the history, physical exam, medical decision making, and the department course for this patient. I have also personally directed, reviewed, and agree with the discharge instructions and disposition.
--- NOTE | 2018-01-18 12:15 | RAD ---
PROCEDURE: CHEST RADIOGRAPH, 1 VIEW HISTORY: SOB COMPARISON: 05/03/2017 FINDINGS: LUNGS: Clear. PLEURA: No pneumothorax or pleural fluid seen. CARDIOVASCULAR: Normal. OSSEOUS STRUCTURES: No significant abnormalities. VISUALIZED UPPER ABDOMEN: Normal. OTHER FINDINGS: None. IMPRESSION: No active disease.
[2018-01-18 13:36] LABS: SQUAMOUS EPITHIAL 12 /hpf (0-5); URINE BACTERIA RARE (<OCC); URINE BILIRUBIN NEGATIVE (NEGATIVE); URINE BLOOD NEGATIVE (NEGATIVE); URINE CLARITY Hazy (Clear); URINE COLOR Amber (YELLOW); URINE GLUCOSE (UA) NORMAL (Normal); URINE LEUKOCYTE ESTERASE NEG Leu/uL (Negative); URINE PROTEIN 2+ mg/dL (NEGATIVE)
--- NOTE | 2018-01-18 14:13 | RAD ---
PROCEDURE: Radiographs of the Lumbar Spine. HISTORY: back pain COMPARISON: No prior. FINDINGS: BONES: Vertebral bodies maintained in height. Transverse processes and posterior elements are intact. Minimal dextroscoliosis. Normal alignment. No listhesis. No fracture. DISC SPACES: Unremarkable. OTHER FINDINGS: None. IMPRESSION: Minimal dextroscoliosis.
--- NOTE | 2018-01-18 14:15 | CP.PCM.HP ---
History of Present Illness - History of Present Illness History of Present Illness: COMPREHENSIVE~ ~ HISTORY & PHYSICAL EXAM Patient admitted from [facility] emergency room with palpitations with atrial fibrillation with rapid ventricular rate and back pain HPI Few days ago patient was moving furniture with her son and since then patient been complaining of low lumbosacral region pain with no radiation no increase on coughing or straining. Today patient got short of breath wheezing and palpitation. In [facility] emergency room patient had a rapid atrial fibrillation and responded with IV Cardizem. PAST HIST. Patient has history of atrial fibrillation on Eliquis and digoxin. History of asthma PERSONAL HIST:~ ~ Smoking.~ ~ N~ ~ Alcohol.~ ~ N. Allergy N.Travel_- FAMILY HIST : ROS : Constitutional: Negative for weight change, chills, night sweats, fatigue and usage of assist device. ~ Eyes: Negative for redness, swelling, itching, discharge, vision changes, blurry vision, double vision, glaucoma, cataracts, ~ Ears: Negative for hearing loss, ringing, , tinnitus, vertigo ~ Nose: Negative for rhinorrhea, stuffiness, sniffing, itching, postnasal drip, discoloration, nasal congestion and epistaxis. ~ Throat: Negative for throat clearing, sore throat, hoarseness, difficulty swallowing and difficulty speaking. ~ Respiratory: Negative for cough, , sputum production, chest tightness,~ wheezing, pleuritic chest pain ,daytime somnolence, chronic cough, hemoptysis, snoring at night, ~ Cardiovascular: Negative for orthopnea, PND, Edema of legs, leg cramps, angina , claudication, , ~ Neurology: Negative for irritability, muscle weakness, numbness and tingling, seizures, tremors, migraines, slurred speech, syncope, memory loss, mood changes , recurrent headaches Gastrointestinal: Negative for difficulty swallowing, diarrhea, constipation, black stools, rectal bleeding, nausea, flatulence, reflux, poor appetite, changes in bowel habits, abdominal pain ~ Genitourinary: Negative for frequent urination, hematuria, discharge, incontinence, urinary retention, frequent UTI, Psychiatric: Negative for depression, anxiety/panic, suicidal tendencies, Musculoskeletal: Negative for swollen joints, back pain, , neck pain, morning stiffness of joints, . Skin: Negative for rash, ulcers, itching, dry skin and pigmented lesions. P/E: ~ Constitutional: Appears stated age and in no apparent distress. ~ Head: Normocephalic. ~ Ears: External ear canals patent without inflammation. Tympanic membranes intact with normal light reflex and landmark. ~ Eyes: Pupils are central, bilaterally equal, symmetrical and reacts to light with normal movements and no icterus or pallor. ~ Nose: External nares are patent. Mucosa is pink~ Mouth-Throat: Good general appearance and condition. No post-pharyngeal/oropharyngeal erythema and tonsillar hypertrophy. Good dental hygiene. ~ Neck-Lymphatic: Neck is supple with normal ROM, no thyromegaly, lymph nodes or masses. JVD is normal with no carotid bruit. ~ Lungs: Clear to percussion and auscultation with bilateral normal air entry. ~ Cardiovascular: S1 and S2 are normal with no murmurs, gallops and rub. ~ GI Exam: No hepatomegaly. Abdomen is soft and non-tender. No Organomegaly , masses or hernias are evident and bowel sounds are normal and active. ~ Neurology: Higher function and all cranial nerves intact, with no gross motor or sensory deficit. Superficial and deep reflexes are normal with downwards planters. No cerebellar deficit with normal gait. Musculoskeletal: No tender spots with normal curvature of the spine with no swelling or restricted ROM of the small and large joints. Extremities: Homans sign absent. Intact pulses with no pitting edema, calf tenderness or skin color changes. Skin: No rash, eruptions or abnormal skin pigmentatio LAB/RADIOLOGY: ASSESMENT : Atrial fibrillation with rapid ventricular rate. History of asthma Low back pain secondary to muscular strain PLAN: Continue by mouth Cardizem and Eliquis Pain management Present on Admission - Present on Admission Any Indicators Present on Admission: No Past Patient History - Past Medical History & Family History Past Medical History?: Yes - Past Social History Smoking Status: Never Smoked - CARDIAC Hx Hypertension: Yes - PULMONARY Hx Asthma: Yes - NEUROLOGICAL Hx Neurological Disorder: No - HEENT Hx HEENT Problems: No - RENAL Hx Kidney Stones: Yes () - ENDOCRINE/METABOLIC Hx Endocrine Disorders: No - HEMATOLOGICAL/ONCOLOGICAL Hx Blood Disorders: No - INTEGUMENTARY Hx Dermatological Problems: No - MUSCULOSKELETAL/RHEUMATOLOGICAL Hx Musculoskeletal Disorders: No Hx Falls: No - GASTROINTESTINAL Hx Gastrointestinal Disorders: No - GENITOURINARY/GYNECOLOGICAL Hx Genitourinary Disorders: No - PSYCHIATRIC Hx Substance Use: No - SURGICAL HISTORY Hx Cholecystectomy: Yes - ANESTHESIA Hx Anesthesia: Yes Hx Anesthesia Reactions: No Hx Malignant Hyperthermia: No Meds Allergies/Adverse Reactions: Allergies Allergy/AdvReac Type Severity Reaction Status Date / Time Latex, Natural Rubber Allergy Intermediate RASH Verified 01/18/18 11:08 morphine Allergy Intermediate VOMITING Verified 01/18/18 11:08 Results - Vital Signs Recent Vital Signs: Last Vital Signs Temp 98.4 F 01/18/18 11:06 Pulse 98 H 01/18/18 12:53 Resp 20 01/18/18 12:53 BP 129/83 01/18/18 12:53 Pulse Ox 95 01/18/18 13:37 - Labs Result Diagrams: 01/18/18 11:25 01/18/18 11:25 Labs: Laboratory Results - last 24 hr 01/18/18 01/18/18 01/18/18 11:25 11:25 11:25 WBC 13.2 H RBC 5.12 Hgb 14.8 Hct 43.1 MCV 84.2 D MCH 29.0 MCHC 34.4 RDW 14.1 Plt Count 306 MPV 9.3 Neut % (Auto) 65.9 Lymph % (Auto) 23.2 [place] % (Auto) 7.7 Eos % (Auto) 2.4 Baso % (Auto) 0.8 Neut # (Auto) 8.7 H Lymph # (Auto) 3.1 [place] # (Auto) 1.0 H Eos # (Auto) 0.3 Baso # (Auto) 0.1 PT 14.2 H INR 1.3 APTT 40 H Sodium 145 Potassium 4.1 Chloride 103 Carbon Dioxide 27 Anion Gap 19 BUN 14 Creatinine 0.7 Est GFR ( Amer) > 60 Est GFR (Non-Af Amer) > 60 Random Glucose 148 H Calcium 9.6 Total Bilirubin 0.7 AST 24 ALT 37 Alkaline Phosphatase 89 Troponin I < 0.0120 NT-Pro-B Natriuret Pep 296 Total Protein 7.9 Albumin 4.5 Globulin 3.4 Albumin/Globulin Ratio 1.3 Urine Color Urine Clarity Urine pH Ur Specific [place] Urine Protein Urine Glucose (UA) Urine Ketones Urine Blood Urine Nitrate Urine Bilirubin Urine Urobilinogen Ur Leukocyte Esterase Urine WBC (Auto) Urine RBC (Auto) Ur Squamous Epith Cells Urine Bacteria 01/18/18 12:58 WBC RBC Hgb Hct MCV MCH MCHC RDW Plt Count MPV Neut % (Auto) Lymph % (Auto) [place] % (Auto) Eos % (Auto) Baso % (Auto) Neut # (Auto) Lymph # (Auto) [place] # (Auto) Eos # (Auto) Baso # (Auto) PT INR APTT Sodium Potassium Chloride Carbon Dioxide Anion Gap BUN Creatinine Est GFR ( Amer) Est GFR (Non-Af Amer) Random Glucose Calcium Total Bilirubin AST ALT Alkaline Phosphatase Troponin I NT-Pro-B Natriuret Pep Total Protein Albumin Globulin Albumin/Globulin Ratio Urine Color Judi Urine Clarity Hazy Urine pH 5.0 Ur Specific [place] 1.026 Urine Protein 2+ H Urine Glucose (UA) Normal Urine Ketones Negative Urine Blood Negative Urine Nitrate Negative Urine Bilirubin Negative Urine Urobilinogen 2.0 H Ur Leukocyte Esterase Neg Urine WBC (Auto) 4 Urine RBC (Auto) 2 Ur Squamous Epith Cells 12 H Urine Bacteria Rare
--- NOTE | 2018-01-19 12:21 | CP.PCM.DIS ---
Provider - Provider Date of Admission: 01/18/18 12:06 Attending physician: Hannah Myles MD Time Spent in preparation of Discharge (in minutes): 35 Hospital Course - Lab Results Lab Results: Most Recent Lab Values WBC 13.2 K/uL (4.8-10.8) H 01/18/18 11:25 RBC 5.12 Mil/uL (3.80-5.20) 01/18/18 11:25 Hgb 14.8 g/dL (11.0-16.0) 01/18/18 11:25 Hct 43.1 % (34.0-47.0) 01/18/18 11:25 MCV 84.2 fL (81.0-99.0) D 01/18/18 11:25 MCH 29.0 pg (27.0-31.0) 01/18/18 11:25 MCHC 34.4 g/dL (33.0-37.0) 01/18/18 11:25 RDW 14.1 % (11.5-14.5) 01/18/18 11:25 Plt Count 306 K/uL (130-400) 01/18/18 11:25 MPV 9.3 fL (7.2-11.7) 01/18/18 11:25 Neut % (Auto) 65.9 % (50.0-75.0) 01/18/18 11:25 Lymph % (Auto) 23.2 % (20.0-40.0) 01/18/18 11:25 [place] % (Auto) 7.7 % (0.0-10.0) 01/18/18 11:25 Eos % (Auto) 2.4 % (0.0-4.0) 01/18/18 11:25 Baso % (Auto) 0.8 % (0.0-2.0) 01/18/18 11:25 Neut # (Auto) 8.7 K/uL (1.8-7.0) H 01/18/18 11:25 Lymph # (Auto) 3.1 K/uL (1.0-4.3) 01/18/18 11:25 [place] # (Auto) 1.0 K/uL (0.0-0.8) H 01/18/18 11:25 Eos # (Auto) 0.3 K/uL (0.0-0.7) 01/18/18 11:25 Baso # (Auto) 0.1 K/uL (0.0-0.2) 01/18/18 11:25 PT 14.2 SECONDS (9.7-12.2) H 01/18/18 11:25 INR 1.3 01/18/18 11:25 APTT 40 SECONDS (21-34) H 01/18/18 11:25 Sodium 145 mmol/L (132-148) 01/18/18 11:25 Potassium 4.1 mmol/L (3.6-5.2) 01/18/18 11:25 Chloride 103 mmol/L (98-107) 01/18/18 11:25 Carbon Dioxide 27 mmol/L (22-30) 01/18/18 11:25 Anion Gap 19 (10-20) 01/18/18 11:25 BUN 14 mg/dL (7-17) 01/18/18 11:25 Creatinine 0.7 mg/dL (0.7-1.2) 01/18/18 11:25 Est GFR ( Amer) > 60 01/18/18 11:25 Est GFR (Non-Af Amer) > 60 01/18/18 11:25 Random Glucose 148 mg/dL (65-105) H 01/18/18 11:25 Calcium 9.6 mg/dl (8.6-10.4) 01/18/18 11:25 Total Bilirubin 0.7 mg/dL (0.2-1.3) 01/18/18 11:25 AST 24 U/L (14-36) 01/18/18 11:25 ALT 37 U/L (9-52) 01/18/18 11:25 Alkaline Phosphatase 89 U/L (38-126) 01/18/18 11:25 Troponin I < 0.0120 ng/mL (0.00-0.120) 01/18/18 11:25 NT-Pro-B Natriuret Pep 296 pg/mL (0-900) 01/18/18 11:25 Total Protein 7.9 g/dL (6.3-8.3) 01/18/18 11:25 Albumin 4.5 g/dL (3.5-5.0) 01/18/18 11:25 Globulin 3.4 gm/dL (2.2-3.9) 01/18/18 11:25 Albumin/Globulin Ratio 1.3 (1.0-2.1) 01/18/18 11:25 Urine Color Judi (YELLOW) 01/18/18 12:58 Urine Clarity Hazy (Clear) 01/18/18 12:58 Urine pH 5.0 (5.0-8.0) 01/18/18 12:58 Ur Specific [place] 1.026 (1.003-1.030) 01/18/18 12:58 Urine Protein 2+ mg/dL (NEGATIVE) H 01/18/18 12:58 Urine Glucose (UA) Normal mg/dL (Normal) 01/18/18 12:58 Urine Ketones Negative mg/dL (NEGATIVE) 01/18/18 12:58 Urine Blood Negative (NEGATIVE) 01/18/18 12:58 Urine Nitrate Negative (NEGATIVE) 01/18/18 12:58 Urine Bilirubin Negative (NEGATIVE) 01/18/18 12:58 Urine Urobilinogen 2.0 mg/dL (0.2-1.0) H 01/18/18 12:58 Ur Leukocyte Esterase Neg [place]/uL (Negative) 01/18/18 12:58 Urine WBC (Auto) 4 /hpf (0-5) 01/18/18 12:58 Urine RBC (Auto) 2 /hpf (0-3) 01/18/18 12:58 Ur Squamous Epith Cells 12 /hpf (0-5) H 01/18/18 12:58 Urine Bacteria Rare (<OCC) 01/18/18 12:58 - Hospital Course Hospital Course: Patient admitted from [facility] emergency room with palpitations with atrial fibrillation with rapid ventricular rate and back pain HPI Few days ago patient was moving furniture with her son and since then patient been complaining of low lumbosacral region pain with no radiation no increase on coughing or straining. Today patient got short of breath wheezing and palpitation. In [facility] emergency room patient had a rapid atrial fibrillation and responded with IV Cardizem. patient's heart rate stabilized with by mouth Cardizem. Cardiac enzymes were negative 3 patient had no any cardiac symptoms. Patient's back pain was relieved with tramadol. Patient recently had a cardiac stress test done outpatient in patients contact centre supervisor office which was reported as negative. Patient has a chronic atrial fibrillation controlled with by mouth medications and anticoagulation. Will discharge the patient and follow with her contact centre supervisor as an outpatient. Discharge Plan - Follow Up Plan Condition: FAIR Disposition: HOME/ ROUTINE
[2018-01-19 15:30] VITALS: BP 131/77; RESP 20; TEMP 98.3; O2SAT 96
[2018-01-19 16:29] VITALS: PULSE 84
== END 2018-01-19 17:25 | disposition home or self-care (01) ==
LOC: C.ER 11:02 → C.9E 12:06 → C.6T 12:45
PROVIDERS: ADMIT Internal Medicine Cardiovascular Disease; ATTEND Internal Medicine Cardiovascular Disease
DX: I48.2 Chronic atrial fibrillation (principal); J45.909 Unspecified asthma, uncomplicated; I10 Essential (primary) hypertension; M54.5 Low back pain; X50.0XXA Overexertion from strenuous movement or load, initial encounter; Z79.01 Long term (current) use of anticoagulants
CPT/HCPCS: 71045; 72100; 80053; 81001; 83880; 84484; 85025; 85610; 85730; 93005; 96374; 99285; G0378

== ENCOUNTER 2018-02-08 11:50 | Observation (INO) | payer MEDICAID ==
[2018-02-08 11:50] VITALS: PULSE 95
[2018-02-08 12:02] VITALS: BMI 34.5
[2018-02-08 13:22] LABS: BASO # 0.1 K/uL (0.0-0.2); BASO % 0.5 % (0.0-2.0); EOS # 0.4 K/uL (0.0-0.7); EOS % 3.6 % (0.0-4.0); HEMOGLOBIN 13.8 g/dL (11.0-16.0); LYMPH % 17.5 % (20.0-40.0); MEAN CELL VOLUME 84.7 fL (81.0-99.0); MEAN CORPUSCULAR HEMOGLOBIN 29.3 pg (27.0-31.0); MEAN CORPUSCULAR HGB CONC 34.6 g/dL (33.0-37.0); MEAN PLATELET VOLUME 8.9 fL (7.2-11.7); MONO # 0.8 K/uL (0.0-0.8); MONO % 6.7 % (0.0-10.0); NEUT # 8.1 K/uL (1.8-7.0); NEUT % 71.7 % (50.0-75.0); RBC 4.71 Mil/uL (3.80-5.20); WHITE BLOOD COUNT 11.3 K/uL (4.8-10.8)
[2018-02-08 13:30] LABS: INR 1.4
[2018-02-08 13:41] LABS: ALB/GLOB RATIO 1.3 (1.0-2.1); ALBUMIN 4.4 g/dL (3.5-5.0); ALT/SGPT 25 U/L (9-52); AST/SGOT 20 U/L (14-36); BLOOD UREA NITROGEN 17 mg/dL (7-17); CALCIUM 10.2 mg/dl (8.6-10.4); GFR AFRICAN-AMERICAN > 60; GFR NON-AFRICAN AMERICAN > 60
[2018-02-08 13:48] LABS: B-TYPE NATRIURETIC PEPTIDE 45.2 pg/mL (0-900)
--- NOTE | 2018-02-08 14:09 | RAD ---
Date of service: 02/08/2018 PROCEDURE: CHEST RADIOGRAPH, 1 VIEW HISTORY: chest pain COMPARISON: Chest dated 01/18/2018 FINDINGS: LUNGS: Mild bibasilar atelectasis. Tiny effusions not excluded. PLEURA: As above. No evidence of pneumothorax. CARDIOVASCULAR: Cardiomegaly. OSSEOUS STRUCTURES: No significant abnormalities. VISUALIZED UPPER ABDOMEN: Normal. OTHER FINDINGS: None. IMPRESSION: Mild bibasilar atelectasis.
--- NOTE | 2018-02-08 14:31 | C.PDOC ---
History Of Present Illness 52yo female, comes to ER with complaints of chest pain, described as a pressure sensation present on her left side with associated shortness of breath and nausea for the past 2 days. Patient is on a regimen of Xarelto as she has a history of arrhythmia. Otherwise, she denies any fever, chills, weakness, numbness, and offers no other medical complaints. Time Seen by Provider: 02/08/18 12:33 Chief Complaint (Nursing): Chest Pain History Per: Patient History/Exam Limitations: no limitations Onset/Duration Of Symptoms: Days (2) Current Symptoms Are (Timing): Still Present Quality: Pressure Associated Symptoms: denies: Nausea, Dyspnea, Diaphoresis, Syncope Additional History Per: Patient Past Medical History Reviewed: Historical Data, Nursing Documentation, Vital Signs Vital Signs: Last Vital Signs Temp 97.6 F 02/09/18 08:00 Pulse 70 02/09/18 08:17 Resp 20 02/09/18 08:00 BP 133/82 02/09/18 08:00 Pulse Ox 95 02/09/18 08:00 - Medical History PMH: Asthma, HTN, Kidney Stones ('92), Chronic Kidney Disease Surgical History: Cholecystectomy Family History: States: No Known Family Hx, Unknown Family Hx - Social History Hx Alcohol Use: No Hx Substance Use: No - Immunization History Hx Tetanus Toxoid Vaccination: Yes Hx Influenza Vaccination: Yes Hx Pneumococcal Vaccination: Yes Review Of Systems Except As Marked, All Systems Reviewed And Found Negative. Constitutional: Negative for: Fever, Chills Cardiovascular: Positive for: Chest Pain (pressure) Respiratory: Positive for: Shortness of Breath. Negative for: Cough, Sputum Gastrointestinal: Negative for: Vomiting, Abdominal Pain Musculoskeletal: Negative for: Arm Pain Neurological: Negative for: Weakness, Numbness Physical Exam - Physical Exam Appears: Non-toxic Skin: Warm, Dry Head: Atraumatic, Normacephalic Eye(s): bilateral: Normal Inspection Neck: Normal ROM, Supple Chest: Symmetrical Cardiovascular: Rhythm Regular, No Edema, No Murmur Respiratory: Normal Breath Sounds, No Rales, No Rhonchi, No Wheezing Gastrointestinal/Abdominal: Normal Exam, Soft, No Tenderness Back: Normal Inspection Extremity: Normal ROM, No Tenderness, No Pedal Edema Pulses: Left Dorsalis Pedis: Normal, Right Dorsalis Pedis: Normal Neurological/Psych: Oriented x3, Normal Speech, Normal Cognition, Normal Motor, Normal Sensation ED Course And Treatment - Laboratory Results Result Diagrams: 02/09/18 07:37 02/09/18 07:37 ECG: Interpreted By Me, Viewed By Me ECG Rhythm: Sinus Rhythm Interpretation Of ECG: Poor R-wave progression; normal interval; normal axis; occasional PVC; non-specific T-wave changes Rate From EC O2 Sat by Pulse Oximetry: 99 (RA) Pulse Ox Interpretation: Normal Medical Decision Making Medical Decision Making: Impression: Chest pain, shortness of breath Plan: -- Labs -- EKG -- CXR 1419 Patient admitted to [facility] under hospitalist due to chest pain. Disposition - Disposition Disposition: HOSPITALIZED Disposition Time: 14:20 Condition: FAIR - Clinical Impression Clinical Impression: Chest discomfort - Scribe Statement The provider has reviewed the documentation as recorded by the Shayna Church Provider Attestation: All medical record entries made by the Jeniferibfifi were at my direction and personally dictated by me. I have reviewed the chart and agree that the record accurately reflects my personal performance of the history, physical exam, medical decision making, and the department course for this patient. I have also personally directed, reviewed, and agree with the discharge instructions and disposition.
[2018-02-08] MEDS ORDERED: Albuterol-Ipratrop 3 mg / 0.5 (3 ml) UD INH STA (16:02)
--- NOTE | 2018-02-08 16:02 | CP.PCM.HP ---
History of Present Illness - History of Present Illness History of Present Illness: PGY2 Medicine H+P for Dr. Sawant Patient is a 52 year old female with a past medical history of afib, HTN and Asthma presenting to the hospital today with a complaint of substernal chest pressure. She has been experiencing this pressure off and on since April of 2017. Normally the pressure comes and resolves when she sits down and rests for 5 to 10 minutes. When the chest pressure started yesterday, she attempted to rest but did not get any relief. She has been experiencing increasing dyspnea on exertion over the past couple of months. She is currently scheduled for PFTs with her advertising analyst on 02/14. She uses a nebulizer periodically but states her asthma has been well controlled. She complains of increased fatigue but no other complaints at this time. Denies fevers, chills, nausea, vomiting, diarrhea , constipation, palpitations, abdominal pain, headaches, vision changes, lightheadedness, dizziness, numbness or tingling. PMD: Dr. Chairez Outpt Cardio: Dr. Berumen PMH: HTN and Asthma PSH: hysterectomy with bilateral oopherectomy (due to abnormal bleeding for 1 month) Family Hx: Father had lung cancer, Mother had Liver Cancer, Daughter has asthma Social hx: Denies tobacco, alcohol or illicit drug use Allergies: latex, morphine Present on Admission - Present on Admission Any Indicators Present on Admission: No Review of Systems - Review of Systems All systems: reviewed and no additional remarkable complaints except (as per HPI ) Past Patient History - Past Medical History & Family History Past Medical History?: Yes - Past Social History Smoking Status: Never Smoked - CARDIAC Hx Hypertension: Yes - PULMONARY Hx Asthma: Yes - NEUROLOGICAL Hx Neurological Disorder: No - HEENT Hx HEENT Problems: No - RENAL Hx Chronic Kidney Disease: Yes Hx Kidney Stones: Yes () - ENDOCRINE/METABOLIC Hx Endocrine Disorders: No - HEMATOLOGICAL/ONCOLOGICAL Hx Blood Disorders: No - INTEGUMENTARY Hx Dermatological Problems: No - MUSCULOSKELETAL/RHEUMATOLOGICAL Hx Musculoskeletal Disorders: No Hx Falls: No - GASTROINTESTINAL Hx Gastrointestinal Disorders: No - GENITOURINARY/GYNECOLOGICAL Hx Genitourinary Disorders: No - PSYCHIATRIC Hx Substance Use: No - SURGICAL HISTORY Hx Cholecystectomy: Yes - ANESTHESIA Hx Anesthesia: Yes Hx Anesthesia Reactions: No Hx Malignant Hyperthermia: No Meds Allergies/Adverse Reactions: Allergies Allergy/AdvReac Type Severity Reaction Status Date / Time Latex, Natural Rubber Allergy Intermediate RASH Verified 02/08/18 12:01 morphine Allergy Intermediate VOMITING Verified 02/08/18 12:01 Physical Exam - Constitutional Appears: Well, Non-toxic, No Acute Distress - Head Exam Head Exam: ATRAUMATIC, NORMOCEPHALIC - Eye Exam Eye Exam: EOMI, Normal appearance - ENT Exam ENT Exam: Mucous Membranes Moist - Neck Exam Neck exam: Negative for: Lymphadenopathy - Respiratory Exam Respiratory Exam: Chest Wall Tenderness (left sided reproducible pain), Wheezes (Right upper), NORMAL BREATHING PATTERN. absent: Accessory Muscle Use, Decreased Breath Sounds, Rales, Rhonchi, Respiratory Distress - Cardiovascular Exam Cardiovascular Exam: REGULAR RHYTHM (NSR @ 75bpm on tele), +S1, +S2 - GI/Abdominal Exam GI & Abdominal Exam: Normal Bowel Sounds, Soft. absent: Distended, Firm, Guarding, Rigid, Tenderness - Extremities Exam Extremities exam: Positive for: pedal edema (2+ b/l ), pedal pulses present. Negative for: calf tenderness - Neurological Exam Neurological exam: Alert, CN II-XII Intact, Oriented x3 - Psychiatric Exam Psychiatric exam: Normal Affect, Normal Mood - Skin Skin Exam: Dry, Warm Results - Vital Signs Recent Vital Signs: Last Vital Signs Temp 98.3 F 02/08/18 12:03 Pulse 73 02/08/18 15:21 Resp 12 02/08/18 15:21 BP 130/52 L 02/08/18 15:21 Pulse Ox 97 02/08/18 15:21 - Labs Result Diagrams: 02/08/18 13:18 02/08/18 13:18 Labs: Laboratory Results - last 24 hr 02/08/18 02/08/18 02/08/18 13:18 13:18 13:18 WBC 11.3 H RBC 4.71 Hgb 13.8 Hct 39.9 MCV 84.7 MCH 29.3 MCHC 34.6 RDW 14.0 Plt Count 237 MPV 8.9 Neut % (Auto) 71.7 Lymph % (Auto) 17.5 L [place] % (Auto) 6.7 Eos % (Auto) 3.6 Baso % (Auto) 0.5 Neut # (Auto) 8.1 H Lymph # (Auto) 2.0 [place] # (Auto) 0.8 Eos # (Auto) 0.4 Baso # (Auto) 0.1 PT 15.0 H INR 1.4 APTT 41 H Sodium 143 Potassium 4.2 Chloride 101 Carbon Dioxide 30 Anion Gap 16 BUN 17 Creatinine 0.5 L Est GFR ( Amer) > 60 Est GFR (Non-Af Amer) > 60 Random Glucose 160 H Calcium 10.2 Total Bilirubin 0.5 AST 20 ALT 25 Alkaline Phosphatase 87 Troponin I < 0.0120 NT-Pro-B Natriuret Pep 45.2 Total Protein 7.7 Albumin 4.4 Globulin 3.3 Albumin/Globulin Ratio 1.3 Assessment & Plan - Assessment and Plan (Free Text) Plan: Chest Pain r/o ACS Admit to tele Cardio consulted, Dr. 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 CXR 02/08/18: Mild bibasilar atelectasis. EKG 02/08/18: Sinus arrhythmia @83bpm with occasional PVCs, flipped T waves in leads V1-V2 Trop negative x1; f/u MEHRAN x 2 BNP 45.2 (previously 2160 on 05/03/17) Lipid Panel: f/u TSH/free T4: f/u Hx of Asthma Duonebs 3mL INH q4h prn Hx of Hypertension Restart home Losartan 100mg PO daily Hx of Afib Restart home Eliquis 5mg PO BID Restart home Diltiazem 360mg PO daily Prophylactic Care DVT - Eliquis GI - not indicated Case discussed with Dr. Jese Soria Jason PGY2
--- NOTE | 2018-02-08 17:17 | CARD ---
APPROVED REPORT Date of service: 02/08/2018 EKG Measurement Heart [id number] <Conclusion> Sinus rhythm with sinus arrhythmia with occasional premature ventricular complexes Possible Left atrial enlargement Low voltage QRS Cannot rule out Anterior infarct, age undetermined Abnormal ECG
--- NOTE | 2018-02-08 18:39 | CP.PCM.CON ---
History of Present Illness - History of Present Illness History of Present Illness: Pt is a 52 year old female with PMHx HTN, AFib, asthma, arthritis, who presented to ED today with substernal chest pain and worsening dyspnea. The patient states that she has experienced similar symptoms since April 2017 , when she was hospitalized and diagnosed with Atrial fibrillation. The patient follows with her geriatric social worker, Dr. Berumen, and states that she came to the ER following the advice of her geriatric social worker and PCP to come to the ER if she were to experience worsening chest pain. Pt reports that she was doing laundry this morning when she felt a sudden tightness in her chest that caused her to bend over as it was too painful to stand up straight. Chest pain was substernal and nonradiating. She reports that the pain is ongoing, though decreased. Pt denies chest pain being brought on by exercise, but does admit to exertional dyspnea from walking short distances. Pt also reports that she can become short of breath while laying flat in bed and laying on her right side , preventing her from sleep. She also reports lower extremity edema that is new for her which developed in the last couple of days. Pt reports compliance with her cardiac meds. Pt also has a history of asthma for which she uses a rescue inhaler. Pt is scheduled for PFTs with her Dj Instructor on 02/14 Review of Systems - Constitutional Constitutional: absent: Chills, Fever - Cardiovascular Cardiovascular: Chest Pain, Chest Pain at Rest, Edema, Pedal Edema - Respiratory Respiratory: Dyspnea on Exertion. absent: Cough - Gastrointestinal Gastrointestinal: absent: Abdominal Pain, Diarrhea, Nausea, Vomiting - Neurological Neurological: absent: Numbness, Paresthesias Past Patient History - Past Medical History & Family History Past Medical History?: Yes - Past Social History Smoking Status: Never Smoked - CARDIAC Hx Atrial Fibrillation: Yes Hx Hypertension: Yes - PULMONARY Hx Asthma: Yes - NEUROLOGICAL Hx Neurological Disorder: No - HEENT Hx HEENT Problems: No - RENAL Hx Chronic Kidney Disease: Yes Hx Kidney Stones: Yes () - ENDOCRINE/METABOLIC Hx Endocrine Disorders: No - HEMATOLOGICAL/ONCOLOGICAL Hx Blood Disorders: No - INTEGUMENTARY Hx Dermatological Problems: No - MUSCULOSKELETAL/RHEUMATOLOGICAL Hx Musculoskeletal Disorders: No Hx Falls: No - GASTROINTESTINAL Hx Gastrointestinal Disorders: No - GENITOURINARY/GYNECOLOGICAL Hx Genitourinary Disorders: No - PSYCHIATRIC Hx Substance Use: No - SURGICAL HISTORY Hx Cholecystectomy: Yes - ANESTHESIA Hx Anesthesia: Yes Hx Anesthesia Reactions: No Hx Malignant Hyperthermia: No Meds Allergies/Adverse Reactions: Allergies Allergy/AdvReac Type Severity Reaction Status Date / Time Latex, Natural Rubber Allergy Intermediate RASH Verified 02/08/18 12:01 morphine Allergy Intermediate VOMITING Verified 02/08/18 12:01 - Medications Medications: Current Medications Albuterol/Ipratropium (Duoneb 3 Mg/0.5 Mg (3 Ml) Ud) 3 ml INH RQ4 PRN PRN Reason: Shortness of Breath Apixaban (Eliquis) 5 mg PO BID [facility] Diltiazem HCl (Cardizem Cd) 360 mg PO DAILY [facility] Losartan Potassium (Cozaar) 100 mg PO DAILY [facility] Physical Exam - Constitutional Appears: No Acute Distress - Eye Exam Eye Exam: EOMI, Normal appearance, PERRL - ENT Exam ENT Exam: Mucous Membranes Moist, Normal Oropharynx - Neck Exam Neck exam: Positive for: Full Rom - Respiratory Exam Respiratory Exam: Clear to Auscultation Bilateral - Cardiovascular Exam Cardiovascular Exam: REGULAR RHYTHM, +S1, +S2 - GI/Abdominal Exam GI & Abdominal Exam: Normal Bowel Sounds, Soft. absent: Tenderness - Extremities Exam Extremities exam: Positive for: pedal edema - Neurological Exam Neurological exam: Alert, CN II-XII Intact, Oriented x3 Results - Vital Signs Recent Vital Signs: Last Vital Signs Temp 98.0 F 02/08/18 17:54 Pulse 70 02/08/18 17:54 Resp 20 02/08/18 17:54 BP 128/81 02/08/18 17:54 Pulse Ox 95 02/08/18 17:54 - Labs Result Diagrams: 02/09/18 07:37 02/09/18 07:37 Labs: Laboratory Results - last 24 hr 02/08/18 02/08/18 02/08/18 13:18 13:18 13:18 WBC 11.3 H RBC 4.71 Hgb 13.8 Hct 39.9 MCV 84.7 MCH 29.3 MCHC 34.6 RDW 14.0 Plt Count 237 MPV 8.9 Neut % (Auto) 71.7 Lymph % (Auto) 17.5 L Stone % (Auto) 6.7 Eos % (Auto) 3.6 Baso % (Auto) 0.5 Neut # (Auto) 8.1 H Lymph # (Auto) 2.0 Stone # (Auto) 0.8 Eos # (Auto) 0.4 Baso # (Auto) 0.1 PT 15.0 H INR 1.4 APTT 41 H Sodium 143 Potassium 4.2 Chloride 101 Carbon Dioxide 30 Anion Gap 16 BUN 17 Creatinine 0.5 L Est GFR ( Amer) > 60 Est GFR (Non-Af Amer) > 60 Random Glucose 160 H Calcium 10.2 Total Bilirubin 0.5 AST 20 ALT 25 Alkaline Phosphatase 87 Troponin I < 0.0120 NT-Pro-B Natriuret Pep 45.2 Total Protein 7.7 Albumin 4.4 Globulin 3.3 Albumin/Globulin Ratio 1.3 Assessment & Plan (1) Chest pain Assessment and Plan: EKG: Sinus rhythm with some PVCs, possible left atrial enlargement, possible old anterior infarct, no acute ST changes Echo (05/03/17): Mild LV systolic impairment with EF 45-50%, hypertensive heart disease Troponins negative x1. Repeate troponins until negative x3. History of atrial fibrillation, restarted on home meds- eliquis and diltiazam Last echo 04/2017 was normal Repeat echo Plan for repeat stress to assess for possible ischemia (?) Status: Acute (2) Dyspnea Assessment and Plan: Asthma vs Cardiac cause CXR: mild bibasilar atelectasis Albuterol nebs prn Repeat echo to assess cardiac function and EF Status: Acute (3) Atrial fibrillation Assessment and Plan: Home meds restarted - Eliquis and diltiazam Admitted to [facility] Status: Acute (4) Hypertension Assessment and Plan: Restarted on home meds: Losartan 100mg PO daily BP: 130s-60s - 120/50s Status: Chronic
[2018-02-08 20:25] LABS: CK-MB 0.59 ng/mL (0.0-3.38)
[2018-02-09 01:14] LABS: CK-MB 0.57 ng/mL (0.0-3.38)
[2018-02-09 07:52] LABS: BASO # 0.1 K/uL (0.0-0.2); BASO % 0.7 % (0.0-2.0); EOS # 0.4 K/uL (0.0-0.7); HEMOGLOBIN 13.6 g/dL (11.0-16.0); LYMPH # 1.9 K/uL (1.0-4.3); LYMPH % 19.4 % (20.0-40.0); MEAN CELL VOLUME 84.5 fL (81.0-99.0); MEAN CORPUSCULAR HEMOGLOBIN 29.6 pg (27.0-31.0); MONO # 0.7 K/uL (0.0-0.8); MONO % 6.7 % (0.0-10.0); NEUT # 6.8 K/uL (1.8-7.0); NEUT % 69.2 % (50.0-75.0); RBC 4.6 Mil/uL (3.80-5.20); WHITE BLOOD COUNT 9.8 K/uL (4.8-10.8)
[2018-02-09 08:08] LABS: ALB/GLOB RATIO 1.3 (1.0-2.1); ALBUMIN 4.1 g/dL (3.5-5.0); ALT/SGPT 27 U/L (9-52); AST/SGOT 17 U/L (14-36); BLOOD UREA NITROGEN 15 mg/dL (7-17); CALCIUM 9.7 mg/dl (8.6-10.4); GFR AFRICAN-AMERICAN > 60; GFR NON-AFRICAN AMERICAN > 60; HDL CHOLESTEROL 43 mg/dL (30-70)
[2018-02-09 08:29] LABS: LDL CHOLESTEROL 75 mg/dL (0-129)
[2018-02-09] MEDS: diltiaZEM 180 mg/24 Hours CD Cap PO SCH (09:22)
[2018-02-09] MEDS: Albuterol-Ipratrop 3 mg / 0.5 (3 ml) UD INH PRN ×2 (09:42→19:20)
--- NOTE | 2018-02-09 12:06 | CP.PCM.PN ---
Subjective - Date & Time of Evaluation Date of Evaluation: 02/09/18 Time of Evaluation: 11:55 - Subjective Subjective: Pt seen and examined at bedside. Pt continues to complain of shortness of breath brought on by taking a few steps, relieved by albuterol nebs. However the pt is still complaining of substernal chest tightness that has not subsided since here admission. Pt also complains of worsening pedal edema since yesterday and new swelling in her hands. When asked about smoking history, patient stated that she has never smoked and does not drink alcohol, however she expressed concerns that her is a heavy smoker and smokes inside the home. Pt states her chest discomfort is unchanged, does not radiate, and is not tender to palpation or with movement of the extremities. Pt to have echo today or tomorrow. Objective - Vital Signs/Intake and Output Vital Signs (last 24 hours): Temp Pulse Resp BP Pulse Ox 97.6 F 70 20 133/82 95 02/09/18 08:00 02/09/18 08:17 02/09/18 08:00 02/09/18 08:00 02/09/18 08:00 - Medications Medications: Current Medications Acetaminophen (Tylenol 325mg Tab) 650 mg PO Q6 PRN PRN Reason: Headache Albuterol/Ipratropium (Duoneb 3 Mg/0.5 Mg (3 Ml) Ud) 3 ml INH RQ4 PRN PRN Reason: Shortness of Breath Last Admin: 02/09/18 09:42 Dose: 3 ml Apixaban (Eliquis) 5 mg PO BID [facility] Last Admin: 02/09/18 09:22 Dose: 5 mg Diltiazem HCl (Cardizem Cd) 360 mg PO DAILY [facility] Last Admin: 02/09/18 09:22 Dose: 360 mg Losartan Potassium (Cozaar) 100 mg PO DAILY [facility] Last Admin: 02/09/18 09:22 Dose: 100 mg - Labs Labs: 02/09/18 07:37 02/09/18 07:37 PT 15.0 SECONDS (9.7-12.2) H 02/08/18 13:18 INR 1.4 02/08/18 13:18 APTT 41 SECONDS (21-34) H 02/08/18 13:18 - Constitutional Appears: Well, Non-toxic, No Acute Distress - Head Exam Head Exam: ATRAUMATIC, NORMOCEPHALIC - Eye Exam Eye Exam: EOMI, PERRL - ENT Exam ENT Exam: Mucous Membranes Moist - Respiratory Exam Respiratory Exam: Decreased Breath Sounds - Cardiovascular Exam Cardiovascular Exam: REGULAR RHYTHM, +S1, +S2. absent: JVD - GI/Abdominal Exam GI & Abdominal Exam: Soft, Normal Bowel Sounds - Extremities Exam Extremities Exam: Pedal Edema Additional comments: +swelling in hands b/l - Neurological Exam Neurological Exam: Alert, Awake, CN II-XII Intact, Oriented x3 Assessment and Plan (1) Chest pain Assessment & Plan: Troponins negative x3 Stress test one month ago was normal Echo 05/03/17: EF 45-50%, mild LV systolic dysfunction, hypertensive heart dz, mild MR Echo today (02/09): LV Hypertrophy, EF normal CP does not appear to be related to asthma, as CP not relieved by albuterol History of A Fib: restarted on home meds- Eliquis and diltiazam Stress test to be done tomorrow to assess need for cardiac catheterization Status: Acute (2) Atrial fibrillation Assessment & Plan: On tele Restarted on home meds Status: Acute (3) Dyspnea Assessment & Plan: History of asthma CXR 02/08: mild bibasilar atelectasis Albuterol nebs prn Echo today (02/09): Mild LVH and normal EF Status: Acute (4) Hypertension Assessment & Plan: Continue BP meds BPs 130s/80s Status: Chronic
--- NOTE | 2018-02-09 13:00 | CP.PCM.PN ---
Subjective - Date & Time of Evaluation Date of Evaluation: 02/09/18 Time of Evaluation: 09:16 - Subjective Subjective: PGY-1 Medicine Progress Note for hospitalist Dr. Sawant. Patient was seen and examined today OOB in chair in no acute distress. Nurse reported no overnight events. Patient reports no acute new problems. Reports still having chest pain, associated with shortness of breath. Refusing supplemental oxygen as the pain is more mild than yesterday. Encouraged to lay down and use supplemental oxygen if chest pain and shortness of breath persisted. Denies abdominal pain, constipation, diarrhea, nausea, vomiting. Objective - Vital Signs/Intake and Output Vital Signs (last 24 hours): Temp Pulse Resp BP Pulse Ox 97.6 F 70 20 133/82 95 02/09/18 08:00 02/09/18 08:17 02/09/18 08:00 02/09/18 08:00 02/09/18 08:00 - Medications Medications: Current Medications Acetaminophen (Tylenol 325mg Tab) 650 mg PO Q6 PRN PRN Reason: Headache Albuterol/Ipratropium (Duoneb 3 Mg/0.5 Mg (3 Ml) Ud) 3 ml INH RQ4 PRN PRN Reason: Shortness of Breath Last Admin: 02/09/18 09:42 Dose: 3 ml Apixaban (Eliquis) 5 mg PO BID [facility] Last Admin: 02/09/18 09:22 Dose: 5 mg Diltiazem HCl (Cardizem Cd) 360 mg PO DAILY [facility] Last Admin: 02/09/18 09:22 Dose: 360 mg Losartan Potassium (Cozaar) 100 mg PO DAILY [facility] Last Admin: 02/09/18 09:22 Dose: 100 mg - Labs Labs: 02/09/18 07:37 02/09/18 07:37 PT 15.0 SECONDS (9.7-12.2) H 02/08/18 13:18 INR 1.4 02/08/18 13:18 APTT 41 SECONDS (21-34) H 02/08/18 13:18 - Constitutional Appears: Non-toxic, No Acute Distress - Head Exam Head Exam: ATRAUMATIC, NORMOCEPHALIC - Eye Exam Eye Exam: EOMI, Normal appearance, PERRL - ENT Exam ENT Exam: Mucous Membranes Moist, Normal Exam - Respiratory Exam Respiratory Exam: Decreased Breath Sounds, Clear to Ausculation Bilateral, NORMAL BREATHING PATTERN. absent: Accessory Muscle Use, Rales, Rhonchi, Wheezes Additional comments: refusing O2 - Cardiovascular Exam Cardiovascular Exam: REGULAR RHYTHM, +S1, +S2. absent: Gallop, Rubs, Murmur - GI/Abdominal Exam GI & Abdominal Exam: Soft, Normal Bowel Sounds. absent: Tenderness Additional comments: obese - Extremities Exam Extremities Exam: Full ROM, Normal Capillary Refill, Normal Inspection. absent : Joint Swelling, Pedal Edema Additional comments: IV in left hand, good flow - Neurological Exam Neurological Exam: Alert, Awake, CN II-XII Intact, Normal Gait, Oriented x3 - Psychiatric Exam Psychiatric exam: Normal Affect, Normal Mood - Skin Skin Exam: Dry, Intact, Normal Color, Warm Assessment and Plan - Assessment and Plan (Free Text) Plan: Chest Pain r/o ACS Serial ROMIs and EKGs negative Admit to tele Cardio consulted, Dr. 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 CXR 02/08/18: Mild bibasilar atelectasis. EKG 02/08/18: Sinus arrhythmia @83bpm with occasional PVCs, flipped T waves in leads V1-V2 BNP 45.2 on admission (previously 2160 on 05/03/17) Lipid Panel (02/09) TG 186H Chol 158 LDL 75 HDL 43 TSH (02/09) 2.96 Free T4 (02/09) 1.04 Hx of Asthma Duonebs 3mL INH q4h prn Hx of Hypertension Restart home Losartan 100mg PO daily Monitor BP, stable this hospitalization Hx of Afib Restart home Eliquis 5mg PO BID [facility] home Diltiazem 360mg PO daily Prophylactic Care DVT - Eliquis GI - not indicated Tylenol 650mg po q6h prn Soni Padilla PGY-1. Case discussed with Dr. Sawant
--- NOTE | 2018-02-10 05:48 | CARD ---
APPROVED REPORT Date of service: 02/09/2018 EXAM: Two-dimensional and M-mode echocardiogram with Doppler and color Doppler. Other Information Quality : Rhythm : Atrial Fibrillation INDICATION Dizziness and Vertigo Dyspnea Chest Pain Congestive Heart Failure RISK FACTORS Hypertension 2D DIMENSIONS IVSd1.1 (0.7-1.1cm)Aortic Root (2D)3.1 (2.0-3.7cm) LVDd5.0 (3.9-5.9cm)PWd1.1 (0.7-1.1cm) LVDs2.7 (2.5-4.0cm)FS (%) 46.7 % LVEF (%)71.0 (>50%) M-Mode DIMENSIONS RVDd1.33 (2.1-3.2cm)Left Atrium (MM)4.09 (2.5-4.0cm) IVSd0.85 (0.7-1.1cm)Aortic Root3.25 (2.2-3.7cm) LVDd6.08 (4.0-5.6cm)Aortic Cusp Exc.1.99 (1.5-2.0cm) PWd0.81 (0.7-1.1cm)FS (%) 32 % LVDs4.13 (2.0-3.8cm)LVEF (%)66 (>50%) Mitral Valve MV E Kplrkjox514.0cm/sMV A Xkybkojv789.4cm/sE/A ratio0.9 TDI E/Lateral E'0.0E/Medial E'0.0 Tricuspid Valve TR Peak [id number]/sTR Peak [id number] LEFT VENTRICLE The left ventricle is normal size. There is normal left ventricular wall thickness. Left ventricle systolic function is normal. The Ejection Fraction is >70%. There is normal LV segmental wall motion. Tissue Doppler imaging reveals abnormal left ventricular diastolic dysfunction. RIGHT VENTRICLE The right ventricle is normal size. There is normal right ventricular wall thickness. The right ventricular systolic function is normal. ATRIA The left atrium size is normal. The right atrium size is normal. The interatrial septum is intact with no evidence for an atrial septal defect. AORTIC VALVE The aortic valve is normal in structure. No aortic regurgitation is present. There is no aortic valvular stenosis. There is no aortic valvular vegetation. MITRAL VALVE The mitral valve is normal in structure. There is no evidence of mitral valve prolapse. There is no mitral valve stenosis. Mitral regurgitation is mild. TRICUSPID VALVE The tricuspid valve is normal in structure. There is trace tricuspid regurgitation. Right ventricular systolic pressure is estimated at less than 30 mmHg. There is no pulmonary hypertension. PULMONIC VALVE The pulmonic valve is not well visualized. There is no pulmonic valvular regurgitation. GREAT VESSELS The aortic root is normal in size. PERICARDIAL EFFUSION There is no significant pericardial effusion. <Conclusion> Left ventricle systolic function is normal. The Ejection Fraction is >70%. Diastolic dysfunction. No aortic regurgitation is present. Mitral regurgitation is mild. There is trace tricuspid regurgitation. There is no pulmonary hypertension. There is no pulmonic valvular regurgitation.
--- NOTE | 2018-02-10 08:26 | CP.PCM.PN ---
Addendum entered and electronically signed by Jorgito Pérez DO 02/10/18 09:09 : PGY-[address] Ruvalcaba Original Note: <Jorgito Pérez - Last Filed: 02/10/18 08:37> Subjective - Date & Time of Evaluation Date of Evaluation: 02/10/18 Time of Evaluation: 08:23 - Subjective Subjective: Pt seen and examined at bedside. No acute events overnight. Patient reports feeling much better today. Her chest pain is described as a slight pressure, and seems to be improving. Pt will go for exercise stress test later this morning. Objective - Vital Signs/Intake and Output Vital Signs (last 24 hours): Temp Pulse Resp BP Pulse Ox 97.9 F 101 H 230 H 147/80 95 02/09/18 23:43 02/10/18 07:00 02/09/18 23:43 02/09/18 23:43 02/10/18 07:00 - Medications Medications: Current Medications Acetaminophen (Tylenol 325mg Tab) 650 mg PO Q6 PRN PRN Reason: Headache Albuterol/Ipratropium (Duoneb 3 Mg/0.5 Mg (3 Ml) Ud) 3 ml INH RQ4 PRN PRN Reason: Shortness of Breath Last Admin: 02/09/18 19:20 Dose: 3 ml Apixaban (Eliquis) 5 mg PO BID [facility] Last Admin: 02/09/18 17:38 Dose: 5 mg Diltiazem HCl (Cardizem Cd) 360 mg PO DAILY [facility] Last Admin: 02/09/18 09:22 Dose: 360 mg Losartan Potassium (Cozaar) 100 mg PO DAILY [facility] Last Admin: 02/09/18 09:22 Dose: 100 mg - Labs Labs: 02/09/18 07:37 02/09/18 07:37 PT 15.0 SECONDS (9.7-12.2) H 02/08/18 13:18 INR 1.4 02/08/18 13:18 APTT 41 SECONDS (21-34) H 02/08/18 13:18 - Constitutional Appears: Well, No Acute Distress - Head Exam Head Exam: ATRAUMATIC, NORMAL INSPECTION, NORMOCEPHALIC - Eye Exam Eye Exam: EOMI, Normal appearance, PERRL - ENT Exam ENT Exam: Mucous Membranes Moist - Respiratory Exam Respiratory Exam: Clear to Ausculation Bilateral - Cardiovascular Exam Cardiovascular Exam: REGULAR RHYTHM, +S1, +S2 - GI/Abdominal Exam GI & Abdominal Exam: Normal Bowel Sounds Assessment and Plan (1) Chest pain Assessment & Plan: Trops negative x3 Last stress one year ago was normal. Pt to go for exercise stress today to assess need for cardiac cath Echo 05/03/17: EF45-50%, mild systolic dysfunction, mild MR, HTN heart dz Echo 08/12: LV systolic function normal, EF >70%, Diastolic dysfunction, mild MR History AFib: Restarted on home meds - Eliquis and diltiazam Status: Acute (2) Atrial fibrillation Assessment & Plan: On tele Restarted on home meds Status: Acute (3) Dyspnea Assessment & Plan: History of asthma No SOB on exam Received albuterol nebs this morning for mild acute SOB CXR 02/08: Mild bibasilar atelectasis Con't albuterol nebs prn Status: Acute (4) Hypertension Assessment & Plan: Continue BP meds BPs 140s/80s-120s/60s Status: Chronic <Scooter Ruvalcaba - Last Filed: 02/10/18 19:37> Objective - Vital Signs/Intake and Output Vital Signs (last 24 hours): Temp Pulse Resp BP Pulse Ox 97.9 F 67 18 154/91 H 99 02/10/18 16:39 02/10/18 16:39 02/10/18 16:39 02/10/18 16:39 02/10/18 16:39 - Labs Labs: 02/09/18 07:37 02/09/18 07:37 PT 15.0 SECONDS (9.7-12.2) H 02/08/18 13:18 INR 1.4 02/08/18 13:18 APTT 41 SECONDS (21-34) H 02/08/18 13:18 Attending/Attestation - Attestation I have personally seen and examined this patient.: Yes I have fully participated in the care of the patient.: Yes I have reviewed all pertinent clinical information, including history, physical exam and plan: Yes Notes (Text): 02/10/18 19:36 s/p ETT - submaximal stress test with 5/10 CP at peak exercise severely decreased exercise tolerance raises concern for balanced ischemia and triple vessel CAD will need further evaluation with nuclear stress test
[2018-02-10] MEDS: diltiaZEM 180 mg/24 Hours CD Cap PO SCH ×2 (11:40→13:54)
[2018-02-10 16:40] VITALS: BP 154/91; PULSE 67; RESP 18; TEMP 97.9; O2SAT 99
--- NOTE | 2018-02-10 21:29 | CP.PCM.DIS ---
Provider - Provider Date of Admission: 02/08/18 14:20 Attending physician: Mayelin Sawant MD Time Spent in preparation of Discharge (in minutes): 60 Diagnosis - Discharge Diagnosis (1) Left against medical advice Status: Acute Hospital Course - Lab Results Lab Results: Most Recent Lab Values WBC 9.8 K/uL (4.8-10.8) 02/09/18 07:37 RBC 4.60 Mil/uL (3.80-5.20) 02/09/18 07:37 Hgb 13.6 g/dL (11.0-16.0) 02/09/18 07:37 Hct 38.9 % (34.0-47.0) 02/09/18 07:37 MCV 84.5 fL (81.0-99.0) 02/09/18 07:37 MCH 29.6 pg (27.0-31.0) 02/09/18 07:37 MCHC 35.0 g/dL (33.0-37.0) 02/09/18 07:37 RDW 14.0 % (11.5-14.5) 02/09/18 07:37 Plt Count 240 K/uL (130-400) 02/09/18 07:37 MPV 9.0 fL (7.2-11.7) 02/09/18 07:37 Neut % (Auto) 69.2 % (50.0-75.0) 02/09/18 07:37 Lymph % (Auto) 19.4 % (20.0-40.0) L 02/09/18 07:37 Woodruff % (Auto) 6.7 % (0.0-10.0) 02/09/18 07:37 Eos % (Auto) 4.0 % (0.0-4.0) 02/09/18 07:37 Baso % (Auto) 0.7 % (0.0-2.0) 02/09/18 07:37 Neut # (Auto) 6.8 K/uL (1.8-7.0) 02/09/18 07:37 Lymph # (Auto) 1.9 K/uL (1.0-4.3) 02/09/18 07:37 Woodruff # (Auto) 0.7 K/uL (0.0-0.8) 02/09/18 07:37 Eos # (Auto) 0.4 K/uL (0.0-0.7) 02/09/18 07:37 Baso # (Auto) 0.1 K/uL (0.0-0.2) 02/09/18 07:37 PT 15.0 SECONDS (9.7-12.2) H 02/08/18 13:18 INR 1.4 02/08/18 13:18 APTT 41 SECONDS (21-34) H 02/08/18 13:18 Sodium 141 mmol/L (132-148) 02/09/18 07:37 Potassium 4.4 mmol/L (3.6-5.2) 02/09/18 07:37 Chloride 100 mmol/L (98-107) 02/09/18 07:37 Carbon Dioxide 30 mmol/L (22-30) 02/09/18 07:37 Anion Gap 16 (10-20) 02/09/18 07:37 BUN 15 mg/dL (7-17) 02/09/18 07:37 Creatinine 0.6 mg/dL (0.7-1.2) L 02/09/18 07:37 Est GFR ( Amer) > 60 02/09/18 07:37 Est GFR (Non-Af Amer) > 60 02/09/18 07:37 Random Glucose 159 mg/dL (65-105) H 02/09/18 07:37 Calcium 9.7 mg/dl (8.6-10.4) 02/09/18 07:37 Total Bilirubin 0.5 mg/dL (0.2-1.3) 02/09/18 07:37 AST 17 U/L (14-36) 02/09/18 07:37 ALT 27 U/L (9-52) 02/09/18 07:37 Alkaline Phosphatase 82 U/L (38-126) 02/09/18 07:37 Total Creatine Kinase 41 U/L (30-135) 02/09/18 00:28 CK-MB (Mass) 0.57 ng/mL (0.0-3.38) 02/09/18 00:28 Troponin I < 0.0120 ng/mL (0.00-0.120) 02/09/18 00:28 NT-Pro-B Natriuret Pep 45.2 pg/mL (0-900) 02/08/18 13:18 Total Protein 7.2 g/dL (6.3-8.3) 02/09/18 07:37 Albumin 4.1 g/dL (3.5-5.0) 02/09/18 07:37 Globulin 3.1 gm/dL (2.2-3.9) 02/09/18 07:37 Albumin/Globulin Ratio 1.3 (1.0-2.1) 02/09/18 07:37 Triglycerides 186 mg/dL (0-149) H 02/09/18 07:37 Cholesterol 158 mg/dL (0-199) 02/09/18 07:37 LDL Cholesterol Direct 75 mg/dL (0-129) 02/09/18 07:37 HDL Cholesterol 43 mg/dL (30-70) 02/09/18 07:37 Free T4 1.04 ng/dL (0.78-2.19) 02/09/18 07:37 TSH 3rd Generation 2.96 mIU/L (0.46-4.68) 02/09/18 07:37 - Hospital Course Hospital Course: Patient is a 52 year old female with a past medical history of afib, HTN and Asthma presenting to the hospital today with a complaint of substernal chest pressure. She has been experiencing this pressure off and on since April of 2017. Normally the pressure comes and resolves when she sits down and rests for 5 to 10 minutes. When the chest pressure started yesterday, she attempted to rest but did not get any relief. She has been experiencing increasing dyspnea on exertion over the past couple of months. 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 She uses a nebulizer periodically but states her asthma has been well controlled. She complains of increased fatigue but no other complaints at this time. Denies fevers, chills, nausea, vomiting, diarrhea , constipation, palpitations, abdominal pain, headaches, vision changes, lightheadedness, dizziness, numbness or tingling. Serial ROMIs and EKGs were negative. CXR showed mild bibasilar atelectasis. Labs also did not reveal a thyroid and lipid etiology of her chest pain. ECHO showed left ventricle hypertrophy and EF of 71.0%. Patient went for an exercise stress test to assess the need for a cardiac catherization. She was unable to within stand the physical rigor and chose to not complete the exam. Her history of asthma was controlled with Duonebs. Her other chronic diseases were well controlled with her home regimen during this hospital stay. Primary Diagnosis: Leaving against medical advice Patient left before another attempt at a stress test could be completed. She was notified of the risks of leaving against medical advice up to and including a life threatening event, such as heart attack or stroke. She understood and still decided to leave before completing workup at the hospital. She was advised to see her own PMD and sales training coordinator after leaving for followup on her chest pain. This is the summary of the hospital course. For more information, please refer to the EMR. - Date & Time of H&P Date of H&P: 02/10/18 Time of H&P: 17:39 Discharge Exam - Head Exam Head Exam: ATRAUMATIC, NORMAL INSPECTION, NORMOCEPHALIC - Eye Exam Eye Exam: EOMI, Normal appearance, PERRL - ENT Exam ENT Exam: Mucous Membranes Moist, Normal Exam - Respiratory Exam Respiratory Exam: Clear to PA & Lateral, NORMAL BREATHING PATTERN. absent: Rales, Rhonchi, Wheezes, Respiratory Distress, Stridor - Cardiovascular Exam Cardiovascular Exam: REGULAR RHYTHM, +S1, +S2. absent: Gallop, Rubs, Systolic Murmur - GI/Abdominal Exam GI & Abdominal Exam: Normal Bowel Sounds, Soft. absent: Firm, Rebound, Rigid, Tenderness Additional comments: obese - Extremities Exam Extremities exam: full ROM, normal capillary refill, normal inspection, pedal pulses present Additional comments: slight pedal edema in left foot IV removed prior to leaving - Neurological Exam Neurological exam: Alert, CN II-XII Intact, Normal Gait, Oriented x3, Reflexes Normal - Psychiatric Exam Psychiatric exam: Normal Affect, Normal Mood - Skin Skin Exam: Dry, Intact, Normal Color, Warm Discharge Plan - Follow Up Plan Condition: FAIR Disposition: AGAINST MEDICAL ADVICE Instructions: Dependent Edema (DC) Referrals: Scooter Ruvalcaba MD [Staff Provider] -
--- NOTE | 2018-02-11 16:50 | IP.NPCORE ---
Heart Failure Core Measure - Heart Failure Ejection Fraction: 40 % or Greater SHAWNA Inhibitor Prescribed: No Contraindication/Reason for not providing: ARB Beta-Natanael Prescribed: None Contraindication/Reason for not providing: NOT INDICATED BY THE SOCIAL SERVICES AIDE Angiotensin II Receptor Natanael Prescribed: Yes AnticoagulationTherapy for Atrial Fibrillation/Atrialflutter: Yes Aldosterone Antagonist Prescribed: No Contraindication/Reason for not providing: EF IS GREATER THAN 40 Hydralazine Nitrate Prescribed: No Contraindication/Reason for not providing: EF IS GREATER THAN 40 Implantable Cardioverter Defibrillator Therapy: No Contraindication/Reason for not providing: EF IS GREATER THAN 40 Cardiac Resynchronization Therapy Prescribed: No Contraindication/Reason for not providing: EF IS GREATER THAN 40 - Follow up Will be discharged to: Home (LEAVE AGAINST MEDICAL ADVICE) Follow Up Date (must be within 7 days from discharge): 02/13/18 (LEAVE AGINST MEDICAL ADVICE ) Follow Up Time: 09:00
--- NOTE | 2018-02-11 18:07 | CARD ---
APPROVED REPORT Date of service: 02/10/2018 Protocol: PAUL Test Type: TREADMILL TEST Attending Physician: Dr. TORRES Technologist: SITA Test Indications: CP Target HR: 168 bpm Resting ECG: normal Resting Heart Rate: 106 bpm Resting Blood Pressure: 122/80mmHg submaximum (85%): 143 bpm TEST SUMMARY [id number]. EXERCISESTAGE 103:[id number]. EXERCISESTAGE 200:[id number]. [id number]. POST EXERCISE Reason for Termination: Chest discomfort Target HR: NoMax HR: 137 bpm81% of Maximum Predicted HR: 168 bpm Exercise duration: 2 Stage03:45 min:secExercise capacity: 6.4METs Max Blood Pressure: 124/80mmHg Blood Pressure response to exercise: normal resting BP - appropriate response Heart Rate response to exercise: appropriate Chest Pain: Yesnon-limitingAngina index: 0 Arrhythmia: Nonone ST Change: YesDepression upslopingDeviation: 0 mm INTERPRETATION Stress EKG Conclusion: - Inconclusive stress test with 5/10 chest pain with severely decreased exercise tolerance.
== END 2018-02-10 19:32 | disposition left against medical advice (07) ==
LOC: C.ER 11:50 → C.9E 14:20 → C.5S 17:07
PROVIDERS: ADMIT Internal Medicine; ATTEND Internal Medicine
DX: R07.9 Chest pain, unspecified (principal); J45.909 Unspecified asthma, uncomplicated; I10 Essential (primary) hypertension; I12.9 Hypertensive chronic kidney disease with stage 1 through stage 4 chronic kidney disease, or unspecified chronic kidney disease; I49.3 Ventricular premature depolarization; N18.9 Chronic kidney disease, unspecified
CPT/HCPCS: 36415; 71045; 80053; 80061; 83880; 84439; 84443; 84484; 85025; 85610; 85730; 93005; 93017; 93306; 94640; 94760; 99285; G0378

== ENCOUNTER 2018-07-21 17:31 | Observation (INO) | payer MEDICAID ==
[2018-07-21 17:31] VITALS: PULSE 95; BMI 34.5
[2018-07-21 18:27] LABS: BASO # 0.1 K/uL (0.0-0.2); BASO % 0.7 % (0.0-2.0); EOS # 0.4 K/uL (0.0-0.7); EOS % 4.4 % (0.0-4.0); HEMOGLOBIN 13.7 g/dL (11.0-16.0); LYMPH # 2.2 K/uL (1.0-4.3); LYMPH % 23.5 % (20.0-40.0); MEAN CELL VOLUME 84.6 fL (81.0-99.0); MEAN CORPUSCULAR HEMOGLOBIN 27.9 pg (27.0-31.0); MEAN PLATELET VOLUME 9.1 fL (7.2-11.7); MONO # 0.7 K/uL (0.0-0.8); MONO % 8.2 % (0.0-10.0); NEUT # 5.8 K/uL (1.8-7.0); NEUT % 63.2 % (50.0-75.0); NRBC % 0.1 % (0.0-2.0); RBC 4.92 Mil/uL (3.80-5.20); RED CELL DISTRIBUTION WIDTH 13.7 % (11.5-14.5); WHITE BLOOD COUNT 9.2 K/uL (4.8-10.8)
[2018-07-21 18:38] LABS: ALB/GLOB RATIO 1.5 (1.0-2.1); ALBUMIN 4.5 g/dL (3.5-5.0); ALT/SGPT 37 U/L (9-52); AST/SGOT 33 U/L (14-36); BLOOD UREA NITROGEN 13 mg/dL (7-17); CALCIUM 9.2 mg/dl (8.6-10.4); GFR NON-AFRICAN AMERICAN > 60
--- NOTE | 2018-07-21 18:41 | C.PDOC ---
History Of Present Illness 52 year old female with PMHx of Afib presents to the ED complaining of cough for 2 weeks. Reports she was seen by PMD Dr. Juanito Chan and sent to the ED for further evaluation of chest heaviness since last night. Reports chest discomfort is constant and feels like "heaviness". Denies radiation of pain, shortness of breath, palpitations, fever, chills, congestion, n/v/d, abdominal pain or any other symptoms. She was told her EKG at Dr. Chan's office was concerning. Time Seen by Provider: 07/21/18 17:38 Chief Complaint (Nursing): Chest Pain History Per: Patient History/Exam Limitations: no limitations Onset/Duration Of Symptoms: Days Current Symptoms Are (Timing): Still Present Quality: Other (heaviness ) Associated Symptoms: denies: Nausea, Dyspnea, Diaphoresis Past Medical History Reviewed: Historical Data, Nursing Documentation, Vital Signs Vital Signs: Last Vital Signs Temp 97.8 F 07/21/18 17:34 Pulse 69 07/21/18 17:34 Resp 20 07/21/18 17:34 BP 184/80 H 07/21/18 17:40 Pulse Ox 95 07/21/18 17:34 - Medical History PMH: Asthma, Atrial Fibrillation, COPD, HTN, Hyperlipidemia, Kidney Stones ('92), Chronic Kidney Disease Surgical History: Cholecystectomy Family History: States: No Known Family Hx - Social History Hx Alcohol Use: No Hx Substance Use: No - Immunization History Hx Tetanus Toxoid Vaccination: Yes Hx Influenza Vaccination: Yes (01/2018) Hx Pneumococcal Vaccination: No Review Of Systems Constitutional: Negative for: Fever, Chills ENT: Negative for: Ear Pain, Nose Discharge, Nose Congestion, Throat Pain Cardiovascular: Positive for: Other (chest heaviness ). Negative for: Palpitations Respiratory: Positive for: Cough. Negative for: Shortness of Breath Gastrointestinal: Negative for: Nausea, Vomiting, Abdominal Pain, Diarrhea Physical Exam - Physical Exam Appears: Non-toxic, No Acute Distress Skin: Warm, Dry, No Rash Head: Normacephalic Eye(s): bilateral: Normal Inspection Nose: Normal Oral Mucosa: Moist Tongue: Normal Appearing Lips: Normal Appearing Teeth: Normal Dentition Gingiva: Normal Appearing Throat: Normal, No Erythema, No Exudate Neck: Supple Chest: Symmetrical Cardiovascular: Rhythm Regular, No Murmur Respiratory: Normal Breath Sounds, No Rales, No Rhonchi, No Wheezing Gastrointestinal/Abdominal: Soft, No Tenderness Extremity: Bilateral: Atraumatic, Normal Color And Temperature, Normal ROM Neurological/Psych: Oriented x3, Normal Speech Gait: Steady ED Course And Treatment - Laboratory Results Result Diagrams: 07/21/18 18:17 07/21/18 18:17 ECG: Interpreted By Me, Viewed By Me Interpretation Of EC:39 Right axis deviation. Mild wide QRS. Normal intervals. No ST elevations Rate From EC O2 Sat by Pulse Oximetry: 95 - Radiology CXR: Interpreted by Me CXR Interpretation: Yes: No Acute Disease Medical Decision Making Medical Decision Making: Plan - EKG - CXR - Nitroglycerin 0.4mg SL - Bloodwork Patient NSR on EKG and on monitor throughout ED course. SL nitro given for chest pain with some improvement. Troponin x1 noted. Case discussed with Dr. Chan who would like patient admitted to his service, as patient has never undergone cardiac workup in the past. Plan discussed with patient who is amenable to admission. Disposition - Disposition Disposition: HOSPITALIZED Disposition Time: 19:30 Condition: STABLE - Clinical Impression Clinical Impression: Chest pain - Scribe Statement The provider has reviewed the documentation as recorded by the Scribe Corry Wills All medical record entries made by the Scribe were at my direction and personally dictated by me. I have reviewed the chart and agree that the record accurately reflects my personal performance of the history, physical exam, medical decision making, and the department course for this patient. I have also personally directed, reviewed, and agree with the discharge instructions and disposition.
[2018-07-21] MEDS ORDERED: Mometasone 110 mcg/puff-30 puff Inh INH SCH (22:00)
[2018-07-22] LABS: CK-MB 0.75 ng/mL (0.0-3.38)
[2018-07-22 01:46] VITALS: RESP 20
--- NOTE | 2018-07-22 04:00 | HP ---
CHIEF COMPLAINT: Chest pain. HISTORY OF PRESENT ILLNESS: This is a 52-year-old white female with history of atrial fibrillation, hypertension, dyslipidemia, and the patient was hospitalized of over a month ago with a rapid AFib. At that time, she was given medical management, treated, stabilized, and discharged. Today, she was seen in my office with left precordial heaviness, non-radiating, not associated with diaphoresis, dizziness, it is heaviness, but it is nonexertional. She denies any nausea or vomiting. She denies any cough, fever, chill, or rigors. She denies any polyuria, polydipsia, or polyphagia. She denies any history of hematuria or pyuria. She denies any sneezing, itchy eyes, or itchy nose. She denies taking any [id number] cough drops. She has been compliant with the diet, medication, and followup. She has tiredness and weakness. CURRENT MEDICATIONS: She is on Cardizem CD, Crestor, prednisone, aspirin, Eliquis, Cozaar, Coreg, and Asmanex. PAST MEDICAL HISTORY: Atrial fibrillation, obesity, hypertension, hyperlipidemia, kidney stones, status post cholecystectomy. SOCIAL HISTORY: Nonsmoker, non-EtOH user. PHYSICAL EXAMINATION GENERAL: A middle-aged female in no acute distress. VITAL SIGNS: BP 184/80, pulse 69, respiratory rate 20, and temperature 97.8. SKIN: Warm. Good turgor. HEENT: Atraumatic and normocephalic. Negative pallor. Negative jaundice. Extraocular movements are intact. NECK: Supple. No JVD. No lymph node. No thyromegaly. No carotid bruits. CHEST WALL: Bilateral symmetrical expansion. No tenderness. No deformity. LUNGS: Clear. No rales. No rhonchi. CVS: S1 and S2, irregularly irregular. S3 present. ABDOMEN: Soft and nontender. Bowel sounds are positive. RECTAL: Refused. PELVIC: Refused. EXTREMITIES: No clubbing, cyanosis, or edema. ASSEMBLY PRESS OPERATOR: Awake, alert, and oriented x3. Cranial nerves II through XII are normal. Power 5/5 x4. Plantars are downgoing. ASSESSMENT: 1. Chest pain rule out myocardial infarction. 2. Atrial fibrillation. 3. Poorly controlled hypertension. 4. Dyslipidemia. PLAN: Admit. Cardiac enzymes. Resume home meds. Troponin x3. Cardiology evaluation. Monitor the patient. Coleman Chan MD
[2018-07-22] MEDS ORDERED: diltiaZEM 180 mg/24 Hours CD Cap PO SCH (10:00)
--- NOTE | 2018-07-22 10:06 | RAD ---
Date of service: 07/21/2018 HISTORY: chest pain COMPARISON: 06/20/2018. FINDINGS: LUNGS: The lungs are well inflated and clear. PLEURA: No pleural effusions or pneumothorax. CARDIOVASCULAR: There is moderate cardiomegaly. No aortic atherosclerotic calcification present. OSSEOUS STRUCTURES: Within normal limits for the patient's age. VISUALIZED UPPER ABDOMEN: Normal. OTHER FINDINGS: None. IMPRESSION: No active pulmonary disease. Moderate cardiomegaly.
[2018-07-22] MEDS ORDERED: Influenza Vaccine 60 MCG/0.5 ML SYR (3 yr & up) IM ONE (12:00)
[2018-07-22 16:43] VITALS: BP 129/86; PULSE 74; TEMP 98.3
[2018-07-22 20:47] VITALS: O2SAT 95
--- NOTE | 2018-07-22 21:21 | CP.PCM.DIS ---
Provider - Provider Date of Admission: 07/21/18 19:31 Attending physician: Coleman Chan MD Consults: 07/21/18 21:56 Cardiology Consult Routine Comment: Consulting Provider: Alfredo Chung Consulting Physician: Alfredo Chung Reason for Consult: chest pain Hospital Course - Lab Results Lab Results: Most Recent Lab Values WBC 9.2 K/uL (4.8-10.8) 07/21/18 18:17 RBC 4.92 Mil/uL (3.80-5.20) 07/21/18 18:17 Hgb 13.7 g/dL (11.0-16.0) 07/21/18 18:17 Hct 41.6 % (34.0-47.0) 07/21/18 18:17 MCV 84.6 fL (81.0-99.0) 07/21/18 18:17 MCH 27.9 pg (27.0-31.0) 07/21/18 18:17 MCHC 33.0 g/dL (33.0-37.0) 07/21/18 18:17 RDW 13.7 % (11.5-14.5) 07/21/18 18:17 Plt Count 265 K/uL (130-400) 07/21/18 18:17 MPV 9.1 fL (7.2-11.7) 07/21/18 18:17 Neut % (Auto) 63.2 % (50.0-75.0) 07/21/18 18:17 Lymph % (Auto) 23.5 % (20.0-40.0) 07/21/18 18:17 Clay % (Auto) 8.2 % (0.0-10.0) 07/21/18 18:17 Eos % (Auto) 4.4 % (0.0-4.0) H 07/21/18 18:17 Baso % (Auto) 0.7 % (0.0-2.0) 07/21/18 18:17 Neut # (Auto) 5.8 K/uL (1.8-7.0) 07/21/18 18:17 Lymph # (Auto) 2.2 K/uL (1.0-4.3) 07/21/18 18:17 Clay # (Auto) 0.7 K/uL (0.0-0.8) 07/21/18 18:17 Eos # (Auto) 0.4 K/uL (0.0-0.7) 07/21/18 18:17 Baso # (Auto) 0.1 K/uL (0.0-0.2) 07/21/18 18:17 Sodium 140 mmol/L (132-148) 07/21/18 18:17 Potassium 4.0 mmol/L (3.6-5.2) 07/21/18 18:17 Chloride 102 mmol/L (98-107) 07/21/18 18:17 Carbon Dioxide 28 mmol/L (22-30) 07/21/18 18:17 Anion Gap 15 (10-20) 07/21/18 18:17 BUN 13 mg/dL (7-17) 07/21/18 18:17 Creatinine 0.6 mg/dL (0.7-1.2) L 07/21/18 18:17 Est GFR ( Amer) > 60 07/21/18 18:17 Est GFR (Non-Af Amer) > 60 07/21/18 18:17 Random Glucose 157 mg/dL (65-105) H 07/21/18 18:17 Calcium 9.2 mg/dl (8.6-10.4) 07/21/18 18:17 Total Bilirubin 0.4 mg/dL (0.2-1.3) 07/21/18 18:17 AST 33 U/L (14-36) 07/21/18 18:17 ALT 37 U/L (9-52) 07/21/18 18:17 Alkaline Phosphatase 107 U/L (38-126) 07/21/18 18:17 Total Creatine Kinase 53 U/L (30-135) 07/21/18 23:29 CK-MB (Mass) 0.75 ng/mL (0.0-3.38) 07/21/18 23:29 Troponin I < 0.0120 ng/mL (0.00-0.120) 07/21/18 23:29 Total Protein 7.5 g/dL (6.3-8.3) 07/21/18 18:17 Albumin 4.5 g/dL (3.5-5.0) 07/21/18 18:17 Globulin 3.0 gm/dL (2.2-3.9) 07/21/18 18:17 Albumin/Globulin Ratio 1.5 (1.0-2.1) 07/21/18 18:17 Discharge Plan - Discharge Medications Prescriptions: Amoxicillin 500 mg PO BID #14 tablet guaiFENesin [guaifENESIN] 200 mg PO Q6 PRN #240 ml PRN Reason: Cough And Congestion - Follow Up Plan Condition: STABLE Disposition: HOME/ ROUTINE Instructions: Acute Bronchitis, Adult (DC), Chest Pain (DC), Muscle and Bone Pain (DC), Pleuritic Chest Pain (DC) Additional Instructions: Please f/u with Dr. Chan office in 1 week Please continue medication as per med. rec Please pickle cutter medication from [facility]
--- NOTE | 2018-07-22 21:21 | CP.PCM.HP ---
Past Patient History - Past Medical History & Family History Past Medical History?: Yes - Past Social History Smoking Status: Never Smoked - CARDIAC Hx Atrial Fibrillation: Yes Hx Hypertension: Yes - PULMONARY Hx Asthma: Yes Hx Chronic Obstructive Pulmonary Disease (COPD): Yes - NEUROLOGICAL Hx Neurological Disorder: No - HEENT Hx HEENT Problems: No - RENAL Hx Chronic Kidney Disease: Yes Hx Kidney Stones: Yes () - ENDOCRINE/METABOLIC Hx Endocrine Disorders: No - HEMATOLOGICAL/ONCOLOGICAL Hx Blood Disorders: No - INTEGUMENTARY Hx Dermatological Problems: No - MUSCULOSKELETAL/RHEUMATOLOGICAL Hx Falls: No - GASTROINTESTINAL Hx Gastrointestinal Disorders: No - GENITOURINARY/GYNECOLOGICAL Hx Genitourinary Disorders: No - PSYCHIATRIC Hx Substance Use: No - SURGICAL HISTORY Hx Cholecystectomy: Yes - ANESTHESIA Hx Anesthesia: Yes Hx Anesthesia Reactions: No Hx Malignant Hyperthermia: No Meds Home Medications: Home Medication List Medication Instructions Recorded Confirmed Type Amoxicillin 500 mg PO BID #14 tablet 07/22/18 Rx guaiFENesin [guaifENESIN] 200 mg PO Q6 PRN #240 ml 07/22/18 Rx Allergies/Adverse Reactions: Allergies Allergy/AdvReac Type Severity Reaction Status Date / Time Latex, Natural Rubber Allergy Intermediate RASH Verified 07/21/18 17:40 morphine Allergy Intermediate VOMITING Verified 07/21/18 17:40 Results - Vital Signs Recent Vital Signs: Last Vital Signs Temp 98.3 F 07/22/18 15:00 Pulse 74 07/22/18 15:00 Resp 20 07/22/18 15:00 BP 129/86 07/22/18 15:00 Pulse Ox 95 07/22/18 20:46 - Labs Result Diagrams: 07/21/18 18:17 07/21/18 18:17 Labs: Laboratory Results - last 24 hr 07/21/18 23:29 Total Creatine Kinase 53 CK-MB (Mass) 0.75 Troponin I < 0.0120
--- NOTE | 2018-07-24 03:28 | DS ---
DISCHARGE DIAGNOSES: Noncoronary chest pain, hypertension, hyperlipidemia, atrial fibrillation. HISTORY OF PRESENT ILLNESS AND HOSPITAL COURSE: This is a 52-year-old white female with a history of hypertension, hyperlipidemia, atrial fibrillation who came in because of chest pain. EKG showed atrial fibrillation with no acute ST-T changes. Chest x-ray was negative. Cardiac enzymes x3 were negative. The patient had a stress test on last year, which was negative. The patient is feeling better. Chest pain free. She had cough, cold and congestion. She was given amoxicillin and guaifenesin. She is treated, stabilize and discharged with an outpatient followup. Condition upon discharge is stable. PHYSICAL EXAMINATION: VITAL SIGNS: Blood pressure 129/86, pulse 74, respiratory 20, temperature 98.3. LUNGS: Clear. CARDIOVASCULAR SYSTEM: S1 and S2 are regular. ABDOMEN: Soft. Nontender. Bowel sounds are positive. ASSESSMENT: 1. Atrial fibrillation. 2. Chest pain. 3. Tracheobronchitis. PLAN: Discharge the patient. Coleman Chan MD
--- NOTE | 2018-07-24 08:11 | CARD ---
APPROVED REPORT Date of service: 07/21/2018 EKG Measurement Heart [id number] <Conclusion> Normal sinus rhythm with sinus arrhythmia Rightward axis Nonspecific ST abnormality Abnormal ECG
== END 2018-07-22 17:15 | disposition home or self-care (01) ==
LOC: C.ER 17:31 → C.9E 19:31 → C.6T 19:56
PROVIDERS: ADMIT Internal Medicine; ATTEND Internal Medicine
DX: I48.91 Unspecified atrial fibrillation (principal); R07.9 Chest pain, unspecified; J40 Bronchitis, not specified as acute or chronic; J44.9 Chronic obstructive pulmonary disease, unspecified; I12.9 Hypertensive chronic kidney disease with stage 1 through stage 4 chronic kidney disease, or unspecified chronic kidney disease; E78.5 Hyperlipidemia, unspecified; N18.9 Chronic kidney disease, unspecified; Z87.442 Personal history of urinary calculi; Z90.49 Acquired absence of other specified parts of digestive tract
CPT/HCPCS: 36415; 71045; 80053; 84484; 85025; 93005; 99285; G0378

== ENCOUNTER 2018-08-18 12:25 | Outpatient (CLI) | payer MEDICAID | END 2018-08-18 12:26 | disposition home or self-care (01) | LOC: C.RADIC 12:25 ==

== ENCOUNTER 2018-09-16 12:50 | Observation (INO) | payer MEDICAID ==
[2018-09-16 12:50] VITALS: PULSE 95; BMI 34.5
[2018-09-16 14:29] LABS: BASO % 0.5 % (0.0-2.0); EOS # 0.3 K/uL (0.0-0.7); EOS % 3.1 % (0.0-4.0); LYMPH # 1.8 K/uL (1.0-4.3); LYMPH % 19.3 % (20.0-40.0); MEAN CORPUSCULAR HEMOGLOBIN 28.8 pg (27.0-31.0); MEAN CORPUSCULAR HGB CONC 33.5 g/dL (33.0-37.0); MEAN PLATELET VOLUME 9.9 fL (7.2-11.7); MONO # 0.7 K/uL (0.0-0.8); MONO % 7.5 % (0.0-10.0); NEUT # 6.5 K/uL (1.8-7.0); NEUT % 69.6 % (50.0-75.0); RBC 4.87 Mil/uL (3.80-5.20); WHITE BLOOD COUNT 9.3 K/uL (4.8-10.8)
[2018-09-16 14:39] LABS: INR 1.4; PROTHROMBIN TIME 14.8 SECONDS (9.7-12.2)
[2018-09-16 14:44] LABS: SQUAMOUS EPITHIAL 33 /hpf (0-5); URINE BACTERIA OCC (<OCC); URINE BILIRUBIN NEGATIVE (NEGATIVE); URINE BLOOD NEGATIVE (NEGATIVE); URINE CLARITY Hazy (Clear); URINE COLOR Yellow (YELLOW); URINE GLUCOSE (UA) 2+ mg/dL (Normal); URINE LEUKOCYTE ESTERASE NEG Leu/uL (Negative); URINE PROTEIN 2+ mg/dL (NEGATIVE); URINE UROBILINOGEN NORMAL mg/dL (0.2-1.0)
[2018-09-16 14:46] LABS: ALB/GLOB RATIO 1.5 (1.0-2.1); ALT/SGPT 40 U/L (9-52); AST/SGOT 33 U/L (14-36); BLOOD UREA NITROGEN 12 mg/dL (7-17); GFR NON-AFRICAN AMERICAN > 60
--- NOTE | 2018-09-16 14:52 | RAD ---
Date of service: 09/16/2018 PROCEDURE: CHEST RADIOGRAPH, 1 VIEW HISTORY: CP COMPARISON: 08/18/2018 FINDINGS: LUNGS: Clear. PLEURA: No pneumothorax or pleural fluid seen. CARDIOVASCULAR: No aortic atherosclerotic calcification present. Mild cardiomegaly. No congestive change. OSSEOUS STRUCTURES: No significant abnormalities. VISUALIZED UPPER ABDOMEN: Normal. OTHER FINDINGS: None. IMPRESSION: No active disease.
[2018-09-16 14:58] LABS: B-TYPE NATRIURETIC PEPTIDE 687 pg/mL (0-900)
--- NOTE | 2018-09-16 15:44 | C.PDOC ---
History Of Present Illness 53 y/o female with a PMHx of HTN, COPD, presents to the ED complaining of chest pain, SOB, and generalized body aches for 5 days. Patient also has PMHx of A Fib, and is on Eliquis. Patient also reports having lower extremity swelling, which is relatively new to her. Otherwise she denies any nausea, vomiting, diaphoresis, weakness, dizziness, numbness, or paresthesias. Time Seen by Provider: 09/16/18 14:11 Chief Complaint (Nursing): Chest Pain History Per: Patient History/Exam Limitations: no limitations Onset/Duration Of Symptoms: Days (5) Current Symptoms Are (Timing): Still Present Associated Symptoms: Dyspnea Past Medical History Reviewed: Historical Data, Nursing Documentation, Vital Signs Vital Signs: Last Vital Signs Temp 98.6 F 09/16/18 14:17 Pulse 83 09/16/18 14:17 Resp 17 09/16/18 14:17 BP 145/78 09/16/18 14:17 Pulse Ox 19 L 09/16/18 14:17 - Medical History PMH: Asthma, Atrial Fibrillation, COPD, HTN, Hyperlipidemia, Kidney Stones ('92), Chronic Kidney Disease Surgical History: Cholecystectomy Family History: States: Unknown Family Hx - Social History Hx Alcohol Use: No Hx Substance Use: No - Immunization History Hx Tetanus Toxoid Vaccination: Yes Hx Influenza Vaccination: Yes Hx Pneumococcal Vaccination: No Review Of Systems Constitutional: Positive for: Other (Body aches). Negative for: Fever, Sweats Eyes: Negative for: Vision Change Cardiovascular: Positive for: Chest Pain Respiratory: Positive for: Shortness of Breath Gastrointestinal: Negative for: Nausea, Vomiting, Diarrhea Musculoskeletal: Positive for: Other (LE swelling) Skin: Negative for: Rash Neurological: Negative for: Weakness, Numbness, Dizziness Physical Exam - Physical Exam Appears: Non-toxic, No Acute Distress Skin: Warm, Dry, No Rash Head: Atraumatic, Normacephalic Eye(s): bilateral: Normal Inspection, PERRL, EOMI Oral Mucosa: Moist Neck: Normal ROM Chest: Symmetrical, No Tenderness Cardiovascular: Rhythm Irregular (Irregularly irregular) Respiratory: Normal Breath Sounds, No Rales, No Rhonchi, No Wheezing Gastrointestinal/Abdominal: Soft, No Tenderness, No Distention Extremity: Normal ROM (x4), No Calf Tenderness, Swelling (Lower extremities with pitting edema bilaterally) Pulses: Left Dorsalis Pedis: Normal, Right Dorsalis Pedis: Normal Neurological/Psych: Oriented x3, Normal Speech Gait: Steady ED Course And Treatment - Laboratory Results Result Diagrams: 09/16/18 14:26 09/16/18 14:26 Lab Results: PT 14.8 SECONDS (9.7-12.2) H 09/16/18 14:26 INR 1.4 09/16/18 14:26 APTT 34 SECONDS (21-34) 09/16/18 14:26 Troponin I < 0.0120 ng/mL (0.00-0.120) 09/16/18 14:26 NT-Pro-B Natriuret Pep 687 pg/mL (0-900) 09/16/18 14: Total Bilirubin 0.7 mg/dL (0.2-1.3) 09/16/18 14:26 AST 33 U/L (14-36) 09/16/18 14: ALT 40 U/L (9-52) 09/16/18 14: Alkaline Phosphatase 105 U/L (38-126) 09/16/18 14:26 Total Protein 6.7 g/dL (6.3-8.3) 09/16/18 14:26 Albumin 4.0 g/dL (3.5-5.0) 09/16/18 14: Globulin 2.7 gm/dL (2.2-3.9) 09/16/18 14:26 Albumin/Globulin Ratio 1.5 (1.0-2.1) 09/16/18 14:26 Urine Color Yellow (YELLOW) 09/16/18 14:26 Urine Clarity Hazy (Clear) 09/16/18 14:26 Urine pH 6.0 (5.0-8.0) 09/16/18 14:26 Ur Specific [place] 1.013 (1.003-1.030) 09/16/18 14:26 Urine Protein 2+ mg/dL (NEGATIVE) H 09/16/18 14:26 Urine Glucose (UA) 2+ mg/dL (Normal) H 09/16/18 14:26 Urine Ketones Negative mg/dL (NEGATIVE) 09/16/18 14:26 Urine Blood Negative (NEGATIVE) 09/16/18 14:26 Urine Nitrate Negative (NEGATIVE) 09/16/18 14:26 Urine Bilirubin Negative (NEGATIVE) 09/16/18 14:26 Urine Urobilinogen Normal mg/dL (0.2-1.0) 09/16/18 14:26 Ur Leukocyte Esterase Neg Effie/uL (Negative) 09/16/18 14:26 Urine WBC (Auto) 3 /hpf (0-5) 09/16/18 14:26 Urine RBC (Auto) < 1 /hpf (0-3) 09/16/18 14:26 Ur Squamous Epith Cells 33 /hpf (0-5) H 09/16/18 14:26 Urine Bacteria Occ (<OCC) H 09/16/18 14:26 ECG: Interpreted By Me ECG Rhythm: Atrial Fibrillation Interpretation Of ECG: nonspecific ST abnormalities Rate From EC O2 Sat by Pulse Oximetry: 98 (RA) Pulse Ox Interpretation: Normal - Other Rad CXR X-Ray: Read By Radiologist Interpretation: Accession No. : [id number]. Patient Name / ID : GUILLERMO SORIANO / [id number]. Exam Date : 09/16/2018 14:20:21 ( Approved ). Study Comment : Sex / Age : F / 53Y. Creator : David Trujillo MD. Dictator : David Trujillo MD. Marketing Sales Supervisor : State Pilot : David Trujillo MD. Approver2 : Report Date : 09/16/2018 14:48:17. My Comment : . Date of service: 09/16/2018. PROCEDURE: CHEST RADIOGRAPH, 1 VIEW. HISTORY: CP. COMPARISON: 08/18/2018. FINDINGS: LUNGS: Clear. PLEURA: No pneumothorax or pleural fluid seen. CARDIOVASCULAR: No aortic atherosclerotic calcification present. Mild cardiomegaly. No congestive change. OSSEOUS STRUCTURES: No significant abnormalities. VISUALIZED UPPER ABDOMEN: Normal. OTHER FINDINGS: None. IMPRESSION: No active disease. Progress Note: EKG shows A Fib with some nonspecific ST abnormalities. Labs and CXR ordered and reviewed. CXR shows mild cargiomegaly. Patient given 40 mg IV Lasix. Spoke with patients PMD Dr. Chan, accepted patient to tele for observation. Disposition Counseled Patient/Family Regarding: Studies Performed, Diagnosis - Disposition Disposition: HOSPITALIZED Disposition Time: 15:43 Condition: FAIR - Clinical Impression Clinical Impression: Chest pain - PA / SUPERVISOR GLYCERIN / Resident Statement MD/DO has reviewed & agrees with the documentation as recorded. - Scribe Statement The provider has reviewed the documentation as recorded by the Scribfifi Bro All medical record entries made by the Shayna were at my direction and personally dictated by me. I have reviewed the chart and agree that the record accurately reflects my personal performance of the history, physical exam, medical decision making, and the department course for this patient. I have also personally directed, reviewed, and agree with the discharge instructions and disposition. Decision To Admit - Pt Status Changed To: Hospital Disposition Of: Observation - . Bed Request Type: Telemetry Admitting Physician: Coleman Chan Patient Diagnosis: Chest pain
[2018-09-16] MEDS: diltiaZEM 120 mg/24 Hours CD Cap PO SCH (16:45)
[2018-09-16] MEDS: (Novolin R) Insulin Human Regular 100 units/ml vial SC SCH ×2 (17:19→22:05)
--- NOTE | 2018-09-16 21:35 | CP.PCM.HP ---
Present on Admission - Present on Admission Any Indicators Present on Admission: No Past Patient History - Past Medical History & Family History Past Medical History?: Yes - Past Social History Smoking Status: Never Smoked - CARDIAC Hx Atrial Fibrillation: Yes Hx Hypertension: Yes - PULMONARY Hx Asthma: Yes Hx Chronic Obstructive Pulmonary Disease (COPD): Yes - NEUROLOGICAL Hx Neurological Disorder: No - HEENT Hx HEENT Problems: No - RENAL Hx Chronic Kidney Disease: Yes Hx Kidney Stones: Yes () - ENDOCRINE/METABOLIC Hx Endocrine Disorders: No - HEMATOLOGICAL/ONCOLOGICAL Hx Blood Disorders: No - INTEGUMENTARY Hx Dermatological Problems: No - MUSCULOSKELETAL/RHEUMATOLOGICAL Hx Falls: No - GASTROINTESTINAL Hx Gastrointestinal Disorders: No - GENITOURINARY/GYNECOLOGICAL Hx Genitourinary Disorders: No - PSYCHIATRIC Hx Substance Use: No - SURGICAL HISTORY Hx Cholecystectomy: Yes - ANESTHESIA Hx Anesthesia: Yes Hx Anesthesia Reactions: No Hx Malignant Hyperthermia: No Meds Allergies/Adverse Reactions: Allergies Allergy/AdvReac Type Severity Reaction Status Date / Time Latex, Natural Rubber Allergy Intermediate RASH Verified 07/21/18 17:40 morphine Allergy Intermediate VOMITING Verified 07/21/18 17:40 Results - Vital Signs Recent Vital Signs: Last Vital Signs Temp 98.6 F 09/16/18 14:17 Pulse 89 09/16/18 16:23 Resp 17 09/16/18 16:23 BP 148/78 09/16/18 16:23 Pulse Ox 98 09/16/18 17:19 - Labs Result Diagrams: 09/16/18 14:26 09/16/18 14:26 Labs: Laboratory Results - last 24 hr 09/16/18 09/16/18 09/16/18 14:26 14:26 14:26 WBC 9.3 RBC 4.87 Hgb 14.0 Hct 41.9 MCV 86.0 MCH 28.8 MCHC 33.5 RDW 14.0 Plt Count 241 MPV 9.9 Neut % (Auto) 69.6 Lymph % (Auto) 19.3 L [place] % (Auto) 7.5 Eos % (Auto) 3.1 Baso % (Auto) 0.5 Neut # (Auto) 6.5 Lymph # (Auto) 1.8 [place] # (Auto) 0.7 Eos # (Auto) 0.3 Baso # (Auto) 0.0 PT 14.8 H INR 1.4 APTT 34 Sodium Potassium Chloride Carbon Dioxide Anion Gap BUN Creatinine Est GFR ( Amer) Est GFR (Non-Af Amer) Random Glucose Calcium Total Bilirubin AST ALT Alkaline Phosphatase Total Creatine Kinase CK-MB (Mass) Troponin I NT-Pro-B Natriuret Pep Total Protein Albumin Globulin Albumin/Globulin Ratio Urine Color Yellow Urine Clarity Hazy Urine pH 6.0 Ur Specific [place] 1.013 Urine Protein 2+ H Urine Glucose (UA) 2+ H Urine Ketones Negative Urine Blood Negative Urine Nitrate Negative Urine Bilirubin Negative Urine Urobilinogen Normal Ur Leukocyte Esterase Neg Urine WBC (Auto) 3 Urine RBC (Auto) < 1 Ur Squamous Epith Cells 33 H Urine Bacteria Occ H 09/16/18 14:26 WBC RBC Hgb Hct MCV MCH MCHC RDW Plt Count MPV Neut % (Auto) Lymph % (Auto) [place] % (Auto) Eos % (Auto) Baso % (Auto) Neut # (Auto) Lymph # (Auto) [place] # (Auto) Eos # (Auto) Baso # (Auto) PT INR APTT Sodium 136 Potassium 3.7 Chloride 101 Carbon Dioxide 27 Anion Gap 12 BUN 12 Creatinine 0.4 L Est GFR ( Amer) > 60 Est GFR (Non-Af Amer) > 60 Random Glucose 249 H D Calcium 9.0 Total Bilirubin 0.7 AST 33 ALT 40 Alkaline Phosphatase 105 Total Creatine Kinase 32 CK-MB (Mass) 0.70 Troponin I < 0.0120 NT-Pro-B Natriuret Pep 687 Total Protein 6.7 Albumin 4.0 Globulin 2.7 Albumin/Globulin Ratio 1.5 Urine Color Urine Clarity Urine pH Ur Specific [place] Urine Protein Urine Glucose (UA) Urine Ketones Urine Blood Urine Nitrate Urine Bilirubin Urine Urobilinogen Ur Leukocyte Esterase Urine WBC (Auto) Urine RBC (Auto) Ur Squamous Epith Cells Urine Bacteria
[2018-09-16 23:19] LABS: CK-MB 0.45 ng/mL (0.0-3.38)
[2018-09-17 00:56] VITALS: RESP 20
[2018-09-17] MEDS: (Novolin R) Insulin Human Regular 100 units/ml vial SC SCH ×4 (07:40→22:23)
[2018-09-17 08:02] LABS: BLOOD UREA NITROGEN 15 mg/dL (7-17); CALCIUM 8.6 mg/dl (8.6-10.4); GFR NON-AFRICAN AMERICAN > 60
[2018-09-17 08:14] LABS: CK-MB 0.56 ng/mL (0.0-3.38)
--- NOTE | 2018-09-17 08:16 | HP ---
CHIEF COMPLAINT: Chest pain x1 day. HISTORY OF PRESENT ILLNESS: This is a 53-year-old white female, morbidly obese with history of hypertension, hyperlipidemia, and asthma. She is known to me. She has chronic AFib. She is on anticoagulant. She is being followed up by Cardiology. She is compliant with her diet, medication, and followup since yesterday. She is having left precordial chest pain which is dull, nonradiating, not associated with diaphoresis, dizziness along with a chief complaint of dyspnea. She has lower extremity swelling bilaterally, generalized weakness. The patient denies any induction of pain with exertion, cough, or food intake. She denies any nausea or vomiting. She denies any history of angina. She denies any polyuria, polydipsia, or polyphagia. She denies any history of hematuria or pyuria. She denies any sneezing, itchy eyes, however, she has cough which is dry, no sputum production. The patient denies any joint pains. The patient denies any tingling or numbness. The patient has leg edema. The patient denies any orthopnea or PND. She denies any sneezing, itchy eyes, or itchy nose. She denies any history of trauma, fall, or loss of consciousness. She denies any dysuria or frequency. PAST MEDICAL HISTORY: Morbid obesity, hypertension, hyperlipidemia, atrial fibrillation, and chest pain in the past. Workup has been negative for ischemia. SOCIAL HISTORY: Nonsmoker, non-EtOH user. CURRENT MEDICATIONS: At home, she is on guaifenesin, Crestor, prednisone, Asmanex, Cozaar, diltiazem, carvedilol, aspirin, Eliquis, and amoxicillin. PHYSICAL EXAMINATION: GENERAL: A middle-aged female in no acute distress. VITAL SIGNS: Blood pressure 145/78, pulse rate 83, respiratory rate 17, temperature 98.6. SKIN: No rashes, no bruises, no purpura. HEENT: Atraumatic, normocephalic. Negative pallor. Negative jaundice. Extraocular movements are intact. NECK: Supple. No JVD. No lymph node. No thyromegaly. No carotid bruit. CHEST: Chest wall, bilaterally symmetrical expansion. No tenderness. No deformity. BREASTS: No masses. No discharge. LUNGS: Clear. No rales. No rhonchi. CARDIOVASCULAR SYSTEM: S1, S2 irregularly irregular. positive. ABDOMEN: Soft, nontender. Bowel sounds are positive. RECTAL: Negative. GENITAL: Negative. EXTREMITIES: No clubbing, cyanosis. Pitting edema +2. CENTRAL NERVOUS SYSTEM: Alert, awake, and oriented x3. Cranial nerves II through XII are normal. Power 5/5. Plantars are downgoing. ASSESSMENT: 1. Chest pain. Rule out myocardial infarction. 2. Hypertension, heart disease with atrial fibrillation with enlarged left ventricle. 3. Hypertension. 4. Chronic cough. Rule out asthma. 5. High blood sugar. Rule out diabetes. PLAN: Admit. Detailed orders are written. The patient is seen and examined. I spoke to the patient and family. Coleman Chan MD
[2018-09-17] MEDS: Albuterol 0.083% Inhal Sol (2.5 mg/3 mL) UD INH PRN ×2 (09:29→13:16)
[2018-09-17] MEDS: Magnesium Oxide 400 mg Tab UD PO SCH (10:07)
[2018-09-17] MEDS: diltiaZEM 120 mg/24 Hours CD Cap PO SCH (10:08)
--- NOTE | 2018-09-17 11:30 | CP.PCM.CON ---
History of Present Illness - History of Present Illness History of Present Illness: 53 y/o female with a PMHx of HTN, COPD, presents to the ED complaining of chest pain, SOB, and generalized body aches for 5 days. Patient also has PMHx of A Fib, and is on Eliquis. Patient also reports having lower extremity swelling, which is relatively new to her. Otherwise she denies any nausea, vomiting, diaphoresis, weakness, dizziness, numbness, or paresthesias. At the time of examination sitting in bed and feeling better than yesterday. Past Patient History - Past Medical History & Family History Past Medical History?: Yes - Past Social History Smoking Status: Never Smoked - CARDIAC Hx Atrial Fibrillation: Yes Hx Hypertension: Yes - PULMONARY Hx Asthma: Yes Hx Chronic Obstructive Pulmonary Disease (COPD): Yes - NEUROLOGICAL Hx Neurological Disorder: No - HEENT Hx HEENT Problems: No - RENAL Hx Chronic Kidney Disease: Yes Hx Kidney Stones: Yes () - ENDOCRINE/METABOLIC Hx Endocrine Disorders: No - HEMATOLOGICAL/ONCOLOGICAL Hx Blood Disorders: No - INTEGUMENTARY Hx Dermatological Problems: No - MUSCULOSKELETAL/RHEUMATOLOGICAL Hx Falls: No - GASTROINTESTINAL Hx Gastrointestinal Disorders: No - GENITOURINARY/GYNECOLOGICAL Hx Genitourinary Disorders: No - PSYCHIATRIC Hx Substance Use: No - SURGICAL HISTORY Hx Cholecystectomy: Yes - ANESTHESIA Hx Anesthesia: Yes Hx Anesthesia Reactions: No Hx Malignant Hyperthermia: No Meds Allergies/Adverse Reactions: Allergies Allergy/AdvReac Type Severity Reaction Status Date / Time Latex, Natural Rubber Allergy Intermediate RASH Verified 07/21/18 17:40 morphine Allergy Intermediate VOMITING Verified 07/21/18 17:40 - Medications Medications: Current Medications Acetaminophen (Tylenol 325mg Tab) 650 mg PO Q6 PRN PRN Reason: Pain, moderate (4-7) Last Admin: 09/17/18 01:52 Dose: 650 mg Albuterol Sulfate (Albuterol 0.083% Inhal Audra (2.5 Mg/3 Ml) Ud) 2.5 mg INH RQ6 PRN PRN Reason: Asthma/SOB Last Admin: 09/17/18 09:29 Dose: 2.5 mg Apixaban (Eliquis) 5 mg PO BID [facility] Last Admin: 09/17/18 10:08 Dose: 5 mg Aspirin (Aspirin Chewable) 81 mg PO DAILY [facility] Last Admin: 09/17/18 10:08 Dose: 81 mg Carvedilol (Coreg) 3.125 mg PO BID [facility] Last Admin: 09/17/18 10:08 Dose: 3.125 mg Diltiazem HCl (Cardizem Cd) 360 mg PO DAILY [facility] Last Admin: 09/17/18 10:08 Dose: 360 mg Furosemide (Lasix) 40 mg IVP DAILY [facility] Last Admin: 09/17/18 10:02 Dose: 40 mg Guaifenesin (Robitussin) 200 mg PO Q6 PRN PRN Reason: Cough and congestion Insulin Human Regular (Novolin R) 0 unit SC ACHS [facility]; Protocol Last Admin: 09/17/18 11:26 Dose: Not Given Losartan Potassium (Cozaar) 100 mg PO DAILY [facility] Last Admin: 09/17/18 10:08 Dose: 100 mg Magnesium Oxide (Mag-Ox) 400 mg PO DAILY [facility] Stop: 09/24/18 10:01 Last Admin: 09/17/18 10:07 Dose: 400 mg Rosuvastatin Calcium (Crestor) 10 mg PO [facility] Last Admin: 09/16/18 21:06 Dose: Not Given Physical Exam - Head Exam Head Exam: NORMOCEPHALIC - Neck Exam Neck exam: Positive for: Normal Inspection - Respiratory Exam Respiratory Exam: NORMAL BREATHING PATTERN - Cardiovascular Exam Cardiovascular Exam: Irregular Rhythm - GI/Abdominal Exam GI & Abdominal Exam: Normal Bowel Sounds - Extremities Exam Extremities exam: Positive for: pedal edema - Neurological Exam Neurological exam: Alert, Oriented x3 Results - Vital Signs Recent Vital Signs: Last Vital Signs Temp 97.6 F 09/17/18 07:00 Pulse 103 H 09/17/18 08:00 Resp 20 09/17/18 07:00 BP 134/83 09/17/18 10:02 Pulse Ox 94 L 09/17/18 07:00 - Labs Result Diagrams: 09/16/18 14:26 09/17/18 07:39 Labs: Laboratory Results - last 24 hr 09/16/18 09/16/18 09/16/18 14:26 14:26 14:26 WBC 9.3 RBC 4.87 Hgb 14.0 Hct 41.9 MCV 86.0 MCH 28.8 MCHC 33.5 RDW 14.0 Plt Count 241 MPV 9.9 Neut % (Auto) 69.6 Lymph % (Auto) 19.3 L [place] % (Auto) 7.5 Eos % (Auto) 3.1 Baso % (Auto) 0.5 Neut # (Auto) 6.5 Lymph # (Auto) 1.8 [place] # (Auto) 0.7 Eos # (Auto) 0.3 Baso # (Auto) 0.0 PT 14.8 H INR 1.4 APTT 34 Sodium Potassium Chloride Carbon Dioxide Anion Gap BUN Creatinine Est GFR ( Amer) Est GFR (Non-Af Amer) POC Glucose (mg/dL) Random Glucose Hemoglobin A1c Calcium Magnesium Total Bilirubin AST ALT Alkaline Phosphatase Total Creatine Kinase CK-MB (Mass) Troponin I NT-Pro-B Natriuret Pep Total Protein Albumin Globulin Albumin/Globulin Ratio Urine Color Yellow Urine Clarity Hazy Urine pH 6.0 Ur Specific [place] 1.013 Urine Protein 2+ H Urine Glucose (UA) 2+ H Urine Ketones Negative Urine Blood Negative Urine Nitrate Negative Urine Bilirubin Negative Urine Urobilinogen Normal Ur Leukocyte Esterase Neg Urine WBC (Auto) 3 Urine RBC (Auto) < 1 Ur Squamous Epith Cells 33 H Urine Bacteria Occ H 09/16/18 09/16/18 09/16/18 14:26 15:54 17:02 WBC RBC Hgb Hct MCV MCH MCHC RDW Plt Count MPV Neut % (Auto) Lymph % (Auto) [place] % (Auto) Eos % (Auto) Baso % (Auto) Neut # (Auto) Lymph # (Auto) [place] # (Auto) Eos # (Auto) Baso # (Auto) PT INR APTT Sodium 136 Potassium 3.7 Chloride 101 Carbon Dioxide 27 Anion Gap 12 BUN 12 Creatinine 0.4 L Est GFR ( Amer) > 60 Est GFR (Non-Af Amer) > 60 POC Glucose (mg/dL) 197 H Random Glucose 249 H D Hemoglobin A1c 9.4 H D Calcium 9.0 Magnesium Total Bilirubin 0.7 AST 33 ALT 40 Alkaline Phosphatase 105 Total Creatine Kinase 32 CK-MB (Mass) 0.70 Troponin I < 0.0120 NT-Pro-B Natriuret Pep 687 Total Protein 6.7 Albumin 4.0 Globulin 2.7 Albumin/Globulin Ratio 1.5 Urine Color Urine Clarity Urine pH Ur Specific [place] Urine Protein Urine Glucose (UA) Urine Ketones Urine Blood Urine Nitrate Urine Bilirubin Urine Urobilinogen Ur Leukocyte Esterase Urine WBC (Auto) Urine RBC (Auto) Ur Squamous Epith Cells Urine Bacteria 09/16/18 09/17/18 09/17/18 22:42 07:39 07:39 WBC RBC Hgb Hct MCV MCH MCHC RDW Plt Count MPV Neut % (Auto) Lymph % (Auto) [place] % (Auto) Eos % (Auto) Baso % (Auto) Neut # (Auto) Lymph # (Auto) [place] # (Auto) Eos # (Auto) Baso # (Auto) PT INR APTT Sodium 137 Potassium 4.0 Chloride 101 Carbon Dioxide 31 H Anion Gap 9 L BUN 15 Creatinine 0.5 L Est GFR ( Amer) > 60 Est GFR (Non-Af Amer) > 60 POC Glucose (mg/dL) Random Glucose 227 H Hemoglobin A1c Calcium 8.6 Magnesium 1.5 L Total Bilirubin AST ALT Alkaline Phosphatase Total Creatine Kinase 31 25 L CK-MB (Mass) 0.45 0.56 Troponin I < 0.0120 < 0.0120 NT-Pro-B Natriuret Pep Total Protein Albumin Globulin Albumin/Globulin Ratio Urine Color Urine Clarity Urine pH Ur Specific [place] Urine Protein Urine Glucose (UA) Urine Ketones Urine Blood Urine Nitrate Urine Bilirubin Urine Urobilinogen Ur Leukocyte Esterase Urine WBC (Auto) Urine RBC (Auto) Ur Squamous Epith Cells Urine Bacteria Assessment & Plan (1) Chest pain Assessment and Plan: Atypical, work-up negative so far. Status: Acute (2) Atrial fibrillation Assessment and Plan: Rate control and therapeutic anticoagulation. Status: Acute (3) Congestive heart failure Assessment and Plan: Diastolic dysfunction, Discussed with patient. Fluid restriction to 1.5 litter. Diuretics and maintain electrolyte balance. Status: Acute
[2018-09-17] MEDS: guaiFENesin 200 mg/10 ml Syrup UD PO PRN (21:48)
--- NOTE | 2018-09-17 22:53 | CP.PCM.PN ---
Subjective - Date & Time of Evaluation Date of Evaluation: 09/17/18 Time of Evaluation: 08:00 - Subjective Subjective: dictated Objective - Vital Signs/Intake and Output Vital Signs (last 24 hours): Temp Pulse Resp BP Pulse Ox 97.9 F 87 20 129/84 98 09/17/18 15:35 09/17/18 16:00 09/17/18 15:35 09/17/18 15:35 09/17/18 15:35 Intake and Output: 09/17/18 09/18/18 18:59 06:59 Intake Total 400 Balance 400 - Medications Medications: Current Medications Acetaminophen (Tylenol 325mg Tab) 650 mg PO Q6 PRN PRN Reason: Pain, moderate (4-7) Last Admin: 09/17/18 01:52 Dose: 650 mg Albuterol Sulfate (Albuterol 0.083% Inhal Audra (2.5 Mg/3 Ml) Ud) 2.5 mg INH RQ6 PRN PRN Reason: Asthma/SOB Last Admin: 09/17/18 13:16 Dose: 2.5 mg Apixaban (Eliquis) 5 mg PO BID [facility] Last Admin: 09/17/18 17:12 Dose: 5 mg Aspirin (Aspirin Chewable) 81 mg PO DAILY [facility] Last Admin: 09/17/18 10:08 Dose: 81 mg Carvedilol (Coreg) 3.125 mg PO BID [facility] Last Admin: 09/17/18 17:12 Dose: 3.125 mg Diltiazem HCl (Cardizem Cd) 360 mg PO DAILY [facility] Last Admin: 09/17/18 10:08 Dose: 360 mg Furosemide (Lasix) 40 mg IVP DAILY [facility] Last Admin: 09/17/18 10:02 Dose: 40 mg Guaifenesin (Robitussin) 200 mg PO Q6 PRN PRN Reason: Cough and congestion Insulin Human Regular (Novolin R) 0 unit SC [facility]; Protocol Last Admin: 09/17/18 22:23 Dose: Not Given Losartan Potassium (Cozaar) 100 mg PO DAILY [facility] Last Admin: 09/17/18 10:08 Dose: 100 mg Magnesium Oxide (Mag-Ox) 400 mg PO DAILY [facility] Stop: 09/24/18 10:01 Last Admin: 09/17/18 10:07 Dose: 400 mg Rosuvastatin Calcium (Crestor) [address] [facility] Last Admin: 09/17/18 21:48 Dose: 10 mg - Labs Labs: 09/16/18 14:26 09/17/18 07:39 PT 14.8 SECONDS (9.7-12.2) H 09/16/18 14:26 INR 1.4 09/16/18 14:26 APTT 34 SECONDS (21-34) 09/16/18 14:26
[2018-09-18 00:15] VITALS: TEMP 97.7
--- NOTE | 2018-09-18 03:34 | PN ---
DATE: 09/17/2018 SUBJECTIVE: Cardiac enzyme x3 are negative. Afebrile. No shortness of breath. Decreased heart rate. No fever. Positive cough. PHYSICAL EXAMINATION: VITAL SIGNS: Blood pressure 129/84, pulse 89, respiratory rate 20, temperature 97.9. LUNGS: Bilateral basal rales. CARDIOVASCULAR SYSTEM: S1, S2. Regular. ABDOMEN: Soft. ASSESSMENT: 1. Chest pain, ruled out acute myocardial infarction. 2. Hypertension. 3. Atrial fibrillation. 4. Tracheobronchitis. PLAN: Medical management. Monitor the patient. Coleman Chan MD
[2018-09-18 08:08] VITALS: BP 125/78; PULSE 94; O2SAT 96
[2018-09-18] MEDS ORDERED: Sodium Chloride 0.9% 250 ML IV ONE (09:11)
[2018-09-18] MEDS: diltiaZEM 120 mg/24 Hours CD Cap PO SCH (09:46)
[2018-09-18] MEDS: Magnesium Oxide 400 mg Tab UD PO SCH (09:47)
--- NOTE | 2018-09-18 12:41 | CP.PCM.PN ---
Subjective - Date & Time of Evaluation Date of Evaluation: 09/18/18 Time of Evaluation: 12:38 - Subjective Subjective: SOB had improved, edema has resolved. Occasional atypical chest pain. Objective - Vital Signs/Intake and Output Vital Signs (last 24 hours): Temp Pulse Resp BP Pulse Ox 97.7 F 94 H 20 125/78 96 09/18/18 08:06 09/18/18 08:06 09/18/18 08:06 09/18/18 08:06 09/18/18 09:02 - Medications Medications: Current Medications Acetaminophen (Tylenol 325mg Tab) 650 mg PO Q6 PRN PRN Reason: Pain, moderate (4-7) Last Admin: 09/18/18 04:52 Dose: 650 mg Albuterol Sulfate (Albuterol 0.083% Inhal Audra (2.5 Mg/3 Ml) Ud) 2.5 mg INH RQ6 PRN PRN Reason: Asthma/SOB Last Admin: 09/17/18 13:16 Dose: 2.5 mg Apixaban (Eliquis) 5 mg PO BID [facility] Last Admin: 09/18/18 09:46 Dose: 5 mg Aspirin (Aspirin Chewable) 81 mg PO DAILY [facility] Last Admin: 09/18/18 09:46 Dose: 81 mg Carvedilol (Coreg) 3.125 mg PO BID [facility] Last Admin: 09/18/18 09:46 Dose: 3.125 mg Diltiazem HCl (Cardizem Cd) 360 mg PO DAILY [facility] Last Admin: 09/18/18 09:46 Dose: 360 mg Guaifenesin (Robitussin) 200 mg PO Q6 PRN PRN Reason: Cough and congestion Insulin Human Regular (Novolin R) 0 unit SC ACHS [facility]; Protocol Last Admin: 09/17/18 22:23 Dose: Not Given Losartan Potassium (Cozaar) 100 mg PO DAILY [facility] Last Admin: 09/18/18 09:46 Dose: 100 mg Magnesium Oxide (Mag-Ox) 400 mg PO DAILY [facility] Stop: 09/24/18 10:01 Last Admin: 09/18/18 09:47 Dose: 400 mg Rosuvastatin Calcium (Crestor) 10 mg PO [facility] Last Admin: 09/17/18 21:48 Dose: 10 mg - Labs Labs: 09/16/18 14:26 09/17/18 07:39 PT 14.8 SECONDS (9.7-12.2) H 09/16/18 14:26 INR 1.4 09/16/18 14:26 APTT 34 SECONDS (21-34) 09/16/18 14:26 - Head Exam Head Exam: NORMOCEPHALIC - Neck Exam Neck Exam: Normal Inspection - Respiratory Exam Respiratory Exam: NORMAL BREATHING PATTERN - Cardiovascular Exam Cardiovascular Exam: Irregular Rhythm - Extremities Exam Extremities Exam: Normal Inspection - Neurological Exam Neurological Exam: Alert, Oriented x3 Assessment and Plan (1) Chest pain Assessment & Plan: Atypical, work-up negative so far. Further cardiac work-up can be done as out patient. Discussed with patient. Status: Acute (2) Atrial fibrillation Assessment & Plan: Rate is controlled. Continue therapeutic anticoagulation. Status: Acute (3) Congestive heart failure Assessment & Plan: Improved, continue diuretics and fluid restriction. Status: Acute
[2018-09-18] MEDS: (Novolin R) Insulin Human Regular 100 units/ml vial SC SCH (13:46)
[2018-09-18] MEDS: guaiFENesin 200 mg/10 ml Syrup UD PO PRN (13:48)
--- NOTE | 2018-09-18 16:54 | CP.PCM.PN ---
Subjective - Date & Time of Evaluation Date of Evaluation: 09/18/18 Time of Evaluation: 11:00 - Subjective Subjective: alert, awake, no sob or chest pains, NAD. Objective - Vital Signs/Intake and Output Vital Signs (last 24 hours): Temp Pulse Resp BP Pulse Ox 97.7 F 94 H 20 125/78 96 09/18/18 08:06 09/18/18 08:06 09/18/18 08:06 09/18/18 08:06 09/18/18 09:02 - Labs Labs: 09/16/18 14:26 09/17/18 07:39 PT 14.8 SECONDS (9.7-12.2) H 09/16/18 14:26 INR 1.4 09/16/18 14:26 APTT 34 SECONDS (21-34) 09/16/18 14:26 Assessment and Plan - Assessment and Plan (Free Text) Assessment: 53 year old female admitted with chest pain, seen and examined. Alert and orien aidan x3, denies any pain now, , lungs clear, has mild pedal edema, NAD. Cleared by DR Menchaca, discussed with DR Chan, plan to discharge home with present medications. Advised to follow up in the office in 1 week.
--- NOTE | 2018-09-19 02:56 | CP.PCM.DIS ---
Provider - Provider Date of Admission: 09/16/18 15:42 Attending physician: Coleman Chan MD Consults: 09/16/18 15:45 Cardiology Consult Stat Comment: Consulting Provider: Mary Menchaca Consulting Physician: Mary Menchaca Reason for Consult: chf Time Spent in preparation of Discharge (in minutes): 30 Hospital Course - Lab Results Lab Results: Most Recent Lab Values WBC 9.3 K/uL (4.8-10.8) 09/16/18 14:26 RBC 4.87 Mil/uL (3.80-5.20) 09/16/18 14:26 Hgb 14.0 g/dL (11.0-16.0) 09/16/18 14: Hct 41.9 % (34.0-47.0) 09/16/18 14: MCV 86.0 fL (81.0-99.0) 09/16/18 14: MCH 28.8 pg (27.0-31.0) 09/16/18 14: MCHC 33.5 g/dL (33.0-37.0) 09/16/18 14:26 RDW 14.0 % (11.5-14.5) 09/16/18 14: Plt Count 241 K/uL (130-400) 09/16/18 14:26 MPV 9.9 fL (7.2-11.7) 09/16/18 14:26 Neut % (Auto) 69.6 % (50.0-75.0) 09/16/18 14:26 Lymph % (Auto) 19.3 % (20.0-40.0) L 09/16/18 14:26 [place] % (Auto) 7.5 % (0.0-10.0) 09/16/18 14:26 Eos % (Auto) 3.1 % (0.0-4.0) 09/16/18 14:26 Baso % (Auto) 0.5 % (0.0-2.0) 09/16/18 14:26 Neut # (Auto) 6.5 K/uL (1.8-7.0) 09/16/18 14: Lymph # (Auto) 1.8 K/uL (1.0-4.3) 09/16/18 14:26 [place] # (Auto) 0.7 K/uL (0.0-0.8) 09/16/18 14:26 Eos # (Auto) 0.3 K/uL (0.0-0.7) 09/16/18 14:26 Baso # (Auto) 0.0 K/uL (0.0-0.2) 09/16/18 14:26 PT 14.8 SECONDS (9.7-12.2) H 09/16/18 14:26 INR 1.4 09/16/18 14:26 APTT 34 SECONDS (21-34) 09/16/18 14:26 Sodium 137 mmol/L (132-148) 09/17/18 07:39 Potassium 4.0 mmol/L (3.6-5.2) 09/17/18 07:39 Chloride 101 mmol/L (98-107) 09/17/18 07:39 Carbon Dioxide 31 mmol/L (22-30) H 09/17/18 07:39 Anion Gap 9 (10-20) L 09/17/18 07:39 BUN 15 mg/dL (7-17) 09/17/18 07:39 Creatinine 0.5 mg/dL (0.7-1.2) L 09/17/18 07:39 Est GFR ( Amer) > 60 09/17/18 07:39 Est GFR (Non-Af Amer) > 60 09/17/18 07:39 POC Glucose (mg/dL) 197 mg/dL (65-110) H 09/16/18 17:02 Random Glucose 227 mg/dL (65-105) H 09/17/18 07:39 Hemoglobin A1c 9.4 % (4.2-6.5) H D 09/16/18 15:54 Calcium 8.6 mg/dl (8.6-10.4) 09/17/18 07:39 Magnesium 1.5 mg/dL (1.6-2.3) L 09/17/18 07:39 Total Bilirubin 0.7 mg/dL (0.2-1.3) 09/16/18 14:26 AST 33 U/L (14-36) 09/16/18 14:26 ALT 40 U/L (9-52) 09/16/18 14:26 Alkaline Phosphatase 105 U/L (38-126) 09/16/18 14:26 Total Creatine Kinase 25 U/L (30-135) L 09/17/18 07:39 CK-MB (Mass) 0.56 ng/mL (0.0-3.38) 09/17/18 07:39 Troponin I < 0.0120 ng/mL (0.00-0.120) 09/17/18 07:39 NT-Pro-B Natriuret Pep 687 pg/mL (0-900) 09/16/18 14:26 Total Protein 6.7 g/dL (6.3-8.3) 09/16/18 14:26 Albumin 4.0 g/dL (3.5-5.0) 09/16/18 14: Globulin 2.7 gm/dL (2.2-3.9) 09/16/18 14: Albumin/Globulin Ratio 1.5 (1.0-2.1) 09/16/18 14:26 Urine Color Yellow (YELLOW) 09/16/18 14:26 Urine Clarity Hazy (Clear) 09/16/18 14:26 Urine pH 6.0 (5.0-8.0) 09/16/18 14:26 Ur Specific [place] 1.013 (1.003-1.030) 09/16/18 14:26 Urine Protein 2+ mg/dL (NEGATIVE) H 09/16/18 14:26 Urine Glucose (UA) 2+ mg/dL (Normal) H 09/16/18 14:26 Urine Ketones Negative mg/dL (NEGATIVE) 09/16/18 14:26 Urine Blood Negative (NEGATIVE) 09/16/18 14:26 Urine Nitrate Negative (NEGATIVE) 09/16/18 14:26 Urine Bilirubin Negative (NEGATIVE) 09/16/18 14:26 Urine Urobilinogen Normal mg/dL (0.2-1.0) 09/16/18 14:26 Ur Leukocyte Esterase Neg Effie/uL (Negative) 09/16/18 14:26 Urine WBC (Auto) 3 /hpf (0-5) 09/16/18 14:26 Urine RBC (Auto) < 1 /hpf (0-3) 09/16/18 14:26 Ur Squamous Epith Cells 33 /hpf (0-5) H 09/16/18 14:26 Urine Bacteria Occ (<OCC) H 09/16/18 14:26 Discharge Exam - Head Exam Head Exam: NORMOCEPHALIC Discharge Plan - Follow Up Plan Condition: FAIR Disposition: HOME/ ROUTINE Instructions: Heart Healthy Diet, Chest Pain, Heart Failure, Adult (DC) Additional Instructions: DISCHARGE HOME PER DR. CHAN. CONTINUE WITH PRESENT MEDS. FOLLOW UP WITH DR. CHAN IN 1 WEEK. Referrals: Mary Menchaca MD [Staff Provider] - Coleman Chan MD [Staff Provider] -
--- NOTE | 2018-09-19 19:52 | CARD ---
APPROVED REPORT Date of service: 09/16/2018 EKG Measurement Heart [id number] <Conclusion> Atrial fibrillation Nonspecific ST and T wave abnormality Abnormal ECG
== END 2018-09-18 15:28 | disposition home or self-care (01) ==
LOC: C.ER 12:50 → C.6T 15:42
PROVIDERS: ADMIT Internal Medicine; ATTEND Internal Medicine
DX: R07.89 Other chest pain (principal); I13.0 Hypertensive heart and chronic kidney disease with heart failure and stage 1 through stage 4 chronic kidney disease, or unspecified chronic kidney disease; I48.2 Chronic atrial fibrillation; E78.5 Hyperlipidemia, unspecified; I50.9 Heart failure, unspecified; J44.9 Chronic obstructive pulmonary disease, unspecified; N18.9 Chronic kidney disease, unspecified; E66.01 Morbid (severe) obesity due to excess calories
CPT/HCPCS: 36415; 71045; 80048; 80053; 81001; 82550; 82553; 82948; 83036; 83735; 83880; 84484; 85025; 85610; 85730; 93005; 94640; 99285; G0378; J1940